=== PATIENT | male | born 1995 | race Caucasian/White ===

== ENCOUNTER 2021-01-22 22:35 | Emergency (ER) | payer SELFPAY ==
[2021-01-22 22:44] VITALS: BP 149/94; PULSE 81; RESP 16; TEMP 36.8; O2SAT 97; BMI 36.4
[2021-01-22 23:02] VITALS: BP 133/80; PULSE 86; RESP 17; O2SAT 97
--- NOTE | 2021-01-22 23:07 | ED_ITS ---
HPI - Dental/Oral General: Chief complaint: Dental/Oral Stated complaint: tooth pain Time Seen by Provider: 01/22/21 22:38 Source: patient Mode of arrival: ambulatory Limitations: no limitations History of Present Illness: HPI Narrative: 25-year-old male has a history of very poor dentition and has multiple dental caries states has been having pain to his front 2 upper teeth in his back molars. States pain is sharp nature and rates it a 6 out of 10. He denies any difficulty swallowing. Denies any fevers. He denies any abscess formation. He has had no vomiting or diarrhea. Associated symptoms: Denies fever(s) Review of Systems Const: Denies: fever(s), chills, body aches or change in appetite Eyes: Denies: blurry vision or eye discomfort ENMT: Reports: dental pain Card: Denies: chest pain Resp: Denies: dyspnea GI: Denies: abdominal pain, nausea, vomiting or diarrhea : Denies: dysuria Musc: Denies: neck pain or back pain Skin/Breast: Denies: rash Neuro: Denies: headache(s) Psych: Denies: depression Micah/Lymph: Denies: easy bruising All/Imm: Denies: urticaria Physical Exam Const: COMMON NORMALS: no acute distress, patient oriented x3 and healthy appearing HENMT: COMMON NORMALS: normocephalic and atraumatic HEAD & SCALP: normocephalic and atraumatic OTHER: Very poor dentition with multiple cavities. He has no abscess or trismus. Eye: COMMON NORMALS: Equal, round and reactive pupils present and EOMs intact bilaterally PUPIL: Yes Equal, round and reactive pupils present Neck/C-Spine: COMMON NORMALS: full ROM and supple Chest: COMMONS NORMALS: normal inspection of the chest and normal palpation of entire chest wall Resp: COMMON NORMALS: normal respiratory effort, No retractions, No use of accessory muscles and clear to auscultation bilaterally AUSCULTATION: clear to auscultation bilaterally Cardio: COMMON NORMALS: regular rate, regular rhythm and No murmurs present (Cardio) RATE: regular rate RHYTHM: regular rhythm GI: COMMON NORMALS: Normal to inspection, nondistended, normoactive bowel sounds present, Soft to palpation, non-tender and no masses PALPATION: Yes Soft to palpation Extremity: COMMON NORMALS: normal to inspection and full ROM Neuro: COMMON NORMALS: patient oriented x3, moves all extremities and no focal motor deficits Psych: COMMON NORMALS: mental status grossly normal, Normal thought process present and cooperative THOUGHT PROCESS: Normal thought process present Skin: COMMON NORMALS: no rashes or lesions noted and no wounds GENERAL SKIN EXAM: no rashes or lesions noted Course Vital Signs: Vital signs: Vital Signs Temperature 98.3 F 01/22/21 22:44 Pulse Rate 86 01/22/21 23:02 Respiratory Rate 17 01/22/21 23:02 Blood Pressure 133/80 01/22/21 23:02 Pulse Oximetry 97 01/22/21 23:02 MDM - Dental/Oral MDM Narrative: Medical decision making narrative: Patient presents with dental pain with multiple caries. He has no abscess but does have severe inflammation along his gumline as well. He has no trismus. We will place him on Naprosyn along with Keflex and he is to follow-up with a dentist. He understands agrees to plan. Discharge Plan Discharge Patient Disposition: Home Clinical Impression: Toothache, Dental caries Condition: Stable Prescriptions: New cephalexin 500 mg capsule 500 mg PO QID 7 Days Qty: 28 RF: 0 Naprosyn 500 mg tablet 500 mg PO BID PRN (Reason: pain) Qty: 20 RF: 0 Discharge Orders: Discharge ED (Routine); Ordered 01/22/21 Ordered By: Mame Alejandre Referrals: Hugh Banerjee FNP-C [Primary Care Provider] - Discharge Activity: Resume usual activity Patient Instructions: Dental Caries (ED), Toothache (ED) Coding Level of Care Code ED Building Service Worker for Galilea Mcgill
[2021-01-22] MEDS: cephALEXin 500 mg Capsule PO (23:15)
[2021-01-22] MEDS: HYDROcodone-acetaminophen 7.5-325 mg Tablet 1 TAB PO (23:15)
== END 2021-01-22 23:17 | disposition home or self-care (01) ==
PROVIDERS: Emergency Provider Emergency Medicine; PCP Nurse Practitioner
DX: K02.9 Dental caries, unspecified (principal)
CPT/HCPCS: 99283

== ENCOUNTER 2022-01-04 19:37 | Emergency (ER) | payer SELFPAY ==
[2022-01-04 19:44] VITALS: BP 139/93; PULSE 98; RESP 16; TEMP 36.6; O2SAT 98; BMI 34.4
[2022-01-04 19:58] VITALS: BP 139/93; PULSE 98; RESP 16; TEMP 36.6; O2SAT 98
--- NOTE | 2022-01-04 20:14 | W.ED.GENADLT ---
HPI - General Adult General: Chief complaint: Dental/Oral Stated complaint: Knots under chin both Side\ Pain under tongue Time Seen by Provider: 01/04/22 19:47 History of Present Illness: Patient is a 26-year-old male comes to the ED with swollen and tender nodule on right lower jaw. Patient says this morning he woke up and he had a swollen tender nodule in the right submandibular region. He massaged it and within an hour it completely resolved. He still is having a little bit of swelling there again and some tenderness. Denies any fever, chills, trouble breathing or dental pain. Denies any other symptoms. Associated symptoms: Deny chest pain, dyspnea, headache(s), nausea, rash, palpitations or vomiting Review of Systems Const: Denies: fever(s), chills or fatigue Eyes: Denies: change in vision or eye discomfort ENMT: Reports: other (Right submandibular swelling and tenderness.); Denies: throat pain, odynophagia, nasal discharge or nasal congestion Card: Denies: chest pain, palpitations, edema, swelling of feet/ankles, dyspnea on exertion or orthopnea Resp: Denies: dyspnea, productive cough or non-productive cough GI: Denies: abdominal pain, nausea, vomiting, diarrhea, constipation or hematochezia : Denies: flank pain, difficulty urinating, dysuria or hematuria Musc: Denies: neck pain, back pain or extremity swelling Skin/Breast: Denies: rash or new lesions Neuro: Denies: headache(s) PFS ED PFSH: Medical History No pertinent family history Surgical History No pertinent past surgical history Physical Exam Const: COMMON NORMALS: no acute distress, patient oriented x3 and alert GENERAL APPEARANCE: cooperative and comfortable HENMT: COMMON NORMALS: normocephalic HEAD & SCALP: normocephalic MOUTH: Normal oral and palatal mucosa present THROAT: posterior oropharynx normal and uvula midline Neck/C-Spine: COMMON NORMALS: supple GENERAL: Yes normal visual inspection OTHER: Right submandibular gland mild swelling and tenderness. Resp: COMMON NORMALS: normal respiratory effort, No retractions, No use of accessory muscles and clear to auscultation bilaterally AUSCULTATION: clear to auscultation bilaterally Cardio: COMMON NORMALS: regular rate, regular rhythm, S1 normal heart sound present, S2 normal heart sound present, No gallops present (Cardio), No clicks present (Cardio), No murmurs present (Cardio) and Peripheral pulses 2+ throughout RATE: regular rate RHYTHM: regular rhythm HEART SOUNDS: S1 normal heart sound present and S2 normal heart sound present PERIPHERAL PULSES: Peripheral pulses 2+ throughout GI: COMMON NORMALS: Normal to inspection, nondistended, normoactive bowel sounds present, Soft to palpation, non-tender and no masses PALPATION: Yes Soft to palpation : COMMON NORMALS: Yes no CVA tenderness BLADDER/KIDNEY EXAM: Yes no CVA tenderness Back/Pelvis: COMMON NORMALS: no CVA tenderness Extremity: COMMON NORMALS: normal to inspection Neuro: COMMON NORMALS: patient oriented x3 and moves all extremities SENSORIUM/ORIENTATION: Yes alert Skin: GENERAL SKIN EXAM: dry skin Course Vital Signs: Vital signs: Vital Signs Temperature 97.8 F 01/04/22 20:31 Pulse Rate 98 01/04/22 20:31 Respiratory Rate 16 01/04/22 20:31 Blood Pressure 139/93 01/04/22 20:31 Pulse Oximetry 98 01/04/22 20:31 MDM - General Adult Medical Decision Making Patient is a 26-year-old male comes to the ED with right submandibular pain and swelling today. He states when he woke up he had large swelling on right submandibular side. He massaged the area and swelling went down significantly. He still has a little bit of swelling and tenderness present. Denies any other symptoms. Vitals are stable. Exam of patient shows a nontoxic-appearing male in no acute distress or pain. He does have mild swelling and tenderness of the right submandibular gland. This is likely due to an obstruction in the duct. He was told to continue massaging the gland and to chew on candies or gum to promote saliva excretion to help reduce gland swelling. Patient was stable for discharge home and was told to follow-up with his PCP in the next 7 to 10 days for evaluation. Return to ED precautions given. Patient understood agree with plan. Discharge Plan Discharge Patient Disposition: Home Clinical Impression: Submandibular gland swelling Condition: Stable Prescriptions: No Action Naprosyn 500 mg tablet 500 mg PO BID PRN (Reason: pain) Qty: 20 0RF Discharge Orders: Discharge ED (Routine); Ordered 01/04/22 Ordered By: Pavel Childress Discharge Diet: Regular Discharge Activity: Resume usual activity Activity Restrictions/Additional Instructions: Follow-up with medical provider as directed in the next 5 to 7 days for reevaluation. Right submandibular gland swelling likely due to an obstruction in one of the ducts. Lightly massage gland and promote saliva excretion by eating candies (sour) and/or chewing gum. Return to the ER or your medical provider if condition worsens. Please read and understand discharge instructions. Thank you for choosing [facility] for your healthcare needs today. Please realize this is an emergency room and that we are providing you with a medical screening exam and this may not be complete and all inclusive of all the testing and or work up that you may need to determine your ailment or severity of your illness. It is very important that you follow up as instructed or that you return to the Emergency Department should you have concerns or if your condition changes or worsens in any way Coding Level of Care Code ED Tool Lathe Operator for Galilea Mcgill Exam Comprehensive
[2022-01-04 20:31] VITALS: BP 139/93; PULSE 98; RESP 16; TEMP 36.6; O2SAT 98
== END 2022-01-04 20:32 | disposition home or self-care (01) ==
PROVIDERS: Emergency Provider Physician Assistant
DX: R59.9 Enlarged lymph nodes, unspecified (principal)
CPT/HCPCS: 99282

== ENCOUNTER 2022-04-19 09:20 | Emergency (ER) | payer MEDICAID, SELFPAY ==
[2022-04-19 09:29] VITALS: BP 156/91; PULSE 79; RESP 19; TEMP 36.8; O2SAT 96; BMI 34.4
[2022-04-19 09:34] VITALS: BP 121/81; PULSE 80; RESP 23; O2SAT 93
--- NOTE | 2022-04-19 09:34 | XR_ITS ---
WS: [id number] XR chest 1V portable [id number] REASON FOR EXAM: chest pain FINDINGS: The chest is unchanged compared to 08/10/2015. The heart and mediastinum are within normal limits. Calcified granulomatous disease in both hemithoraces. No acute pulmonary parenchymal or pleural abnormality is identified. Bony thorax is intact. XR/XR chest 1V portable [id number] IMPRESSION: No acute chest abnormality.
--- NOTE | 2022-04-19 09:34 | ECG_ITS ---
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 Measurements Intervals [place] Rate: 71 P: 29 SD: 187 QRS: -28 QRSD: 89 T: 30 QT: 343 QTc: 373 Interpretive Statements SINUS RHYTHM WITH SINUS ARRHYTHMIA BORDERLINE LEFT AXIS DEVIATION [QRS AXIS < -20] EARLY REPOLARIZATION [ST ELEVATION WITH NORMALLY INFLECTED T-WAVE] Compared to ECG 04/19/2022 09:23:52 No significant changes Electronically Signed On 04-19-2022 20:06:30 CDT by Liat Gonzales M.D. [id number]
--- NOTE | 2022-04-19 09:37 | ED_ITS ---
HPI - Chest Pain General: Chief Complaint: Chest Pain Stated Complaint: stemi Time Seen by Provider: 04/19/22 09:27 Source: patient Mode of arrival: EMS Limitations: no limitations History of Present Illness: 26-year-old male presents to the ER by EMS with complaints of chest discomfort. Patient states he has had multiple episodes of chest pain over the last couple of months. Symptoms are now associated with activity often comes on while at rest resolved spontaneously after 20 or 30 minutes this time it did not resolve and was more intense than it had been in the past. Patient was given fentanyl nitro and aspirin in route. He still is having some chest discomfort radiates into his back. Patient is not diabetic he does smoke he denies any drug use no previous history of known coronary disease. He is not treated for hypertension is not taking any prescription medications or stimulants. He has not previously had a evaluation for coronary artery disease, he does state his father had a OR in his mid 20s. MD complaint: chest pain Onset (ago): hour(s) Timing of current episode: episodic Prior episodes: Yes Onset: during rest Pain location: substernal and left chest Pain radiation: left arm and back Severity: moderate Quality: sharp Relieving factors: nothing Exacerbating factors: nothing Associated symptoms: Reports dyspnea, nausea and sense of impending doom; Deny abdominal pain, diaphoresis, fever(s), leg edema, palpitations, syncope or vomiting Treatment prior to arrival: aspirin, nitroglycerin, oxygen and other (Fentanyl) Review of Systems Const: Denies: fever(s), chills, fatigue or diaphoresis ENMT: Denies: throat pain, ear or mastoid pain, nasal discharge or nasal congestion Card: Denies: palpitations or syncope Resp: Reports: dyspnea; Denies: productive cough, non-productive cough or wheezing GI: Reports: nausea; Denies: abdominal pain or vomiting : Denies: flank pain, difficulty urinating, dysuria, urinary frequency or urinary urgency Skin/Breast: Denies: rash or pruritus PFSH ED PFSH: Medical History No pertinent family history Surgical History No pertinent past surgical history Physical Exam Const: COMMON NORMALS: no acute distress GENERAL APPEARANCE: cooperative and comfortable ORIENTATION/CONSCIOUSNESS: Yes awake, Yes oriented to person, Yes oriented to place and Yes oriented to time HENMT: COMMON NORMALS: normocephalic, atraumatic and hearing grossly normal bilaterally HEAD & SCALP: normocephalic and atraumatic Neck/C-Spine: COMMON NORMALS: no JVD Resp: COMMON NORMALS: normal respiratory effort, No retractions, No use of accessory muscles and clear to auscultation bilaterally AUSCULTATION: clear to auscultation bilaterally Cardio: COMMON NORMALS: no JVD, regular rate, regular rhythm and No murmurs present (Cardio) RATE: regular rate RHYTHM: regular rhythm GI: COMMON NORMALS: Soft to palpation and No hepatosplenomegaly present AUSCULTATION: Yes normoactive bowel sounds PALPATION: Yes Soft to palpation, No Tenderness to palpation present (GI), No Guarding due to palpation present (GI) and Yes No hepatosplenomegaly present Extremity: COMMON NORMALS: normal to inspection, capillary refill normal, no clubbing, cyanosis or edema, no calf tenderness and no pedal edema Neuro: SENSORIUM/ORIENTATION: Yes oriented to person, Yes oriented to place and Yes oriented to time Skin: COMMON NORMALS: no rashes or lesions noted GENERAL SKIN EXAM: no rashes or lesions noted Course Vital Signs: Vital signs: Vital Signs Temperature 98.2 F 04/19/22 09:29 Pulse Rate 81 04/19/22 11:50 Respiratory Rate 16 04/19/22 11:50 Blood Pressure 111/61 04/19/22 11:50 Pulse Oximetry 98 04/19/22 11:50 MDM - Chest Pain Medical Decision Making Heart score of 2. Chest pain was reproducible and EMS by palpation on the chest. EKG shows early repull which is present previously. Troponins are negative. Will discharge patient home with aspirin and graded exercise stress test return if has further problems. Medical Records I reviewed the patient's medical records. Lab Data I reviewed the patient's lab results. : 04/19/22 09:30 04/19/22 09:30 Radiology Impressions Chest X-Ray 04/19/22 09:34 IMPRESSION: No acute chest abnormality. Laboratory Results WBC 14.8 10^3/uL (4.0-10.0) H 04/19/22 09:30 RBC 5.72 10^6/uL (4.1-5.3) H 04/19/22 09:30 Hgb 16.5 g/dL (11.7-16.6) 04/19/22 09:30 Hct 54.4 % (42.0-52.0) H 04/19/22 09:30 MCV 95.1 fl (80-94) H 04/19/22 09:30 MCH 28.8 pg (28.0-34.0) 04/19/22 09:30 MCHC 30.3 g/dL (30.0-36.0) 04/19/22 09:30 RDW 14.4 % (12.1-15.1) 04/19/22 09:30 Plt Count 339 10^3/cmm (130-400) 04/19/22 09:30 MPV 9.5 fL (7.4-10.4) 04/19/22 09:30 Neut % (Auto) 62.2 % 04/19/22 09:30 Lymph % (Auto) 29.2 % 04/19/22 09:30 [place] % (Auto) 5.1 % 04/19/22 09:30 Eos % (Auto) 2.1 % 04/19/22 09:30 Baso % (Auto) 0.9 % 04/19/22 09:30 Neut # (Auto) 9.19 10^3/uL (1.8-7.7) H 04/19/22 09:30 Lymph # (Auto) 4.3 10^3/uL (0.8-4.8) 04/19/22 09:30 [place] # (Auto) 0.8 10^3/uL (0.2-0.9) 04/19/22 09:30 Eos # (Auto) 0.3 10^3/uL (0.0-0.8) 04/19/22 09:30 Baso # (Auto) 0.1 10^3/uL (0.0-0.1) 04/19/22 09:30 Nucleated RBC % (auto) 0 % 04/19/22:30 Nucleated RBCs # 0.0 /100WBC 04/19/22:30 PT 11.90 SECONDS (12.1-14.9) L 04/19/22 09:30 INR 0.85 (0.8-1.2) 04/19/22 09:30 APTT 28.3 SECONDS (23.9-36.7) 04/19/22 09:30 Sodium 136 mmol/L (136-145) 04/19/22 09:30 Potassium 3.7 mmol/L (3.5-5.1) 04/19/22 09:30 Chloride 103 mmol/L (98-107) 04/19/22 09:30 Carbon Dioxide 21 mmol/L (22-29) L 04/19/22 09:30 Anion Gap 15.7 (5-19) 04/19/22 09:30 BUN 13 mg/dL (6-20) 04/19/22 09:30 Creatinine 0.9 mg/dL (0.7-1.2) 04/19/22 09:30 GFR Calculation 102.0 mL/min (90-130) 04/19/22 09:30 Glucose 139 mg/dL (65-115) H 04/19/22 09:30 Calculated Osmolality 284 mOsm/kg (285-295) L 04/19/22 09:30 Calcium 9.2 mg/dL (8.5-10.5) 04/19/22 09:30 Total Bilirubin 0.5 mg/dL (0.15-1.2) 04/19/22 09:30 AST 15 U/L (0-40) 04/19/22 09:30 ALT 20 U/L (0-41) 04/19/22 09:30 Alkaline Phosphatase 69 IU/L (40-130) 04/19/22 09:30 Creatine Kinase 101 U/L (39-308) 04/19/22 09:30 Troponin T Baseline 6 ng/L (0-15) 04/19/22 09:30 Troponin T 120 Minute 6.00 ng/L (0-15) 04/19/22 10:52 Delta Troponin T 0 ABS# (0-10) 04/19/22 10:52 Total Protein 7.2 g/dL (6.6-8.7) 04/19/22 09:30 Albumin 4.3 g/dL (3.5-5.2) 04/19/22 09:30 Globulin 2.9 g/dL (1.3-4.6) 04/19/22 09:30 Discharge Plan Discharge Patient Disposition: Home Clinical Impression: Atypical chest pain Condition: Stable Prescriptions: New aspirin 81 mg tablet,delayed release (DR/EC) 81 mg PO DAILY Qty: 30 0RF No Action Naprosyn 500 mg tablet 500 mg PO BID PRN (Reason: pain) Qty: 20 0RF Discharge Orders: Discharge ED (Routine); Ordered 04/19/22 Ordered By: Manpreet Gerber Discharge Diet: Usual diet Discharge Activity: Limit activity as instructed Patient Instructions: Opioid Safety Activity Restrictions/Additional Instructions: Avoid exertional activity. Case management make her in short follow-up with graded exercise stress test. Coding Level of Care Code ED Communications Technician for Galilea Fwd Exam Comprehensive
--- NOTE | 2022-04-19 09:37 | PC.NURSE ---
Pt arrives via EMS d/t chest pain that started at 0400 this morning waking pt from sleep and constant since all over in pt's chest. Pt c/o pain 06/01 EMS administered 324 aspirin, 3 nitro, and 100 fentanyl in route. Pt denies drug use. Pt is current smoker.
[2022-04-19] MEDS: nitroglycerin 1 gm/inch oint Pkt 1 INCH TOPICAL (09:40)
[2022-04-19 09:43] LABS: Basophils # 0.1 10^3/uL (0.0-0.1); Basophils % 0.9 %; Eosinophils # 0.3 10^3/uL (0.0-0.8); Eosinophils % 2.1 %; Hematocrit 54.4 % (42.0-52.0); Hemoglobin 16.5 g/dL (11.7-16.6); Lymphocytes # 4.3 10^3/uL (0.8-4.8); Lymphocytes % 29.2 %; Mean Corpuscular HGB Conc 30.3 g/dL (30.0-36.0); Mean Corpuscular Hemoglobin 28.8 pg (28.0-34.0); Mean Corpuscular Volume 95.1 fl (80-94); Mean Platelet Volume 9.5 fL (7.4-10.4); Monocytes # 0.8 10^3/uL (0.2-0.9); Monocytes % 5.1 %; Neutrophils # 9.19 10^3/uL (1.8-7.7); Neutrophils % 62.2 %; Nucleated Red Blood Cells % 0 %; Platelet Count 339 10^3/cmm (130-400); Red Blood Count 5.72 10^6/uL (4.1-5.3); Red Cell Distribution Width 14.4 % (12.1-15.1); White Blood Count 14.8 10^3/uL (4.0-10.0)
[2022-04-19 09:53] LABS: INR 0.85 (0.8-1.2); Partial Thromboplastin Time 28.3 SECONDS (23.9-36.7)
[2022-04-19 09:58] LABS: Troponin(5th) Baseline 6 ng/L (0-15)
[2022-04-19 10:03] LABS: Alanine Aminotransferase 20 U/L (0-41); Albumin Level 4.3 g/dL (3.5-5.2); Alkaline Phosphatase 69 IU/L (40-130); Aspartate Amino Transferase 15 U/L (0-40); Blood Urea Nitrogen 13 mg/dL (6-20); Calcium 9.2 mg/dL (8.5-10.5); Carbon Dioxide 21 mmol/L (22-29); Chloride 103 mmol/L (98-107); Creatine Phosphokinase 101 U/L (39-308); Globulin 2.9 g/dL (1.3-4.6); Glucose 139 mg/dL (65-115); Osmolality Calculated 284 mOsm/kg (285-295); Sodium 136 mmol/L (136-145); Total Bilirubin 0.5 mg/dL (0.15-1.2); Total Protein 7.2 g/dL (6.6-8.7)
[2022-04-19 10:08] LABS: Anion Gap 15.7 (5-19); Potassium 3.7 mmol/L (3.5-5.1)
[2022-04-19 11:27] VITALS: BP 121/82; PULSE 74; RESP 16; O2SAT 99
[2022-04-19 11:33] LABS: Troponin 5 2HR Delta 0 ABS# (0-10)
--- NOTE | 2022-04-19 11:34 | ECG_ITS ---
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 Measurements Intervals [place] Rate: 80 P: 28 [place]: 172 QRS: -23 QRSD: 97 T: 31 QT: 345 QTc: 398 Interpretive Statements SINUS RHYTHM WITH MARKED SINUS ARRHYTHMIA BORDERLINE LEFT AXIS DEVIATION [QRS AXIS < -20] EARLY REPOLARIZATION [ST ELEVATION WITH NORMALLY INFLECTED T-WAVE] Compared to ECG 01/23/2015 06:59:38 ST (T wave) deviation no longer present Electronically Signed On 04-19-2022 20:10:56 CDT by Liat Gonzales M.D. [email or web address]
[2022-04-19 11:50] VITALS: BP 111/61; PULSE 81; RESP 16; O2SAT 98
--- NOTE | 2022-04-27 12:43 | DCPLANNER ---
Addendum entered by Huma Mccracken 10/27/22 13:12: physical therapist center manager received notification that patients insurance denied the stress test for patient. Addendum entered by Huma Mccracken 04/27/22 13:03: Patient returned case therapist phone call, stated that he did want the stress test ordered and to have the results sent to Amrik Banerjee his primary care physician. physical therapist center manager faxed signed order to centralized scheduling, who will call patient with appointment information. Original Note: physical therapist center manager had message to schedule an outpatient stress test for patient. physical therapist center manager called patient at [phone] to confirm if patient wanted the stress test ordered and to confirm who patient sees for primary care. physical therapist center manager unable to speak with patient at this time and unable to leave a voicemail due to not voicemail box set up.
== END 2022-04-19 11:51 | disposition home or self-care (01) ==
PROVIDERS: Emergency Provider Family Medicine
DX: R07.89 Other chest pain (principal)
CPT/HCPCS: 36415; 71045; 80053; 82550; 84484; 85025; 85610; 85730; 93005; 99285

== ENCOUNTER 2022-06-03 18:18 | Emergency (ER) | payer MEDICAID, SELFPAY ==
[2022-06-03 18:27] VITALS: BP 131/64; PULSE 103; RESP 18; TEMP 37.2; O2SAT 96; BMI 33.5
--- NOTE | 2022-06-03 18:49 | ED_ITS ---
HPI - Dental/Oral General: Chief complaint: Dental/Oral Stated complaint: tooth bleeing post extraction Time Seen by Provider: 06/03/22 18:39 History of Present Illness: 26-year-old male patient comes in today with bleeding secondary to dental extraction. Patient does routinely take baby aspirin and had only held the medication today for his extractions. Patient had the extraction done at 2:00 this afternoon. Patient was released to home was unable to get medications filled for pain. Patient reports 1 episode of emesis with blood in it. Patient appears nontoxic. Patient does have some mild active bleeding to the gums and post extraction points. Review of Systems ENMT: Reports: bleeding gums [facility] ED PFSH: Medical History No pertinent family history Surgical History No pertinent past surgical history Physical Exam Const: COMMON NORMALS: alert HENMT: TEETH & GINGIVA: Yes poor dentition and Yes other (Clots appear to be forming in the extraction of the left side of the mouth.) Neck/C-Spine: COMMON NORMALS: full ROM Resp: COMMON NORMALS: normal respiratory effort Cardio: COMMON NORMALS: regular rate RATE: regular rate Extremity: COMMON NORMALS: normal to inspection Neuro: SENSORIUM/ORIENTATION: Yes alert Skin: COMMON NORMALS: no rashes or lesions noted GENERAL SKIN EXAM: no rashes or lesions noted Procedures Laceration Laceration 1: Site: other (Mouth, dental extraction socket central lower left incisor) Side (If applicable): left Size (cm): 1 Local Anesthetic: lidocaine 2% Amount of anesthesia used (mL): 1 Skin layer closed with: vicryl Size (cm): 4-0 Number of sutures: 1 Technique: other (Figure 8 suture) Course ED course: 2044, the patient had continued bleeding from the central lower incisor socket. Most of the other sockets had clots in them where this 1 had active bleeding. A [id number] stitch was introduced with good control of bleeding. 2104, no further bleeding was noted after suture. Patient reported control of pain and discomfort. Recommend follow-up with dentist for further treatment. Patient reported understanding. Vital Signs: Vital signs: Vital Signs Temperature 98.9 F 06/03/22 18:27 Pulse Rate 103 H 06/03/22 20:53 Respiratory Rate 18 06/03/22 20:53 Blood Pressure 127/88 06/03/22 20:53 Pulse Oximetry 95 06/03/22 20:53 Oxygen Delivery Me thod 06/03/22 18:27 MDM - Dental/Oral Medical Decision Making 26-year-old male patient comes in for concerns of bleeding after dental extractions at 2:00 this afternoon. On exam patient is alert oriented. Patient responds appropriate to questions. Patient does have noticeable bleeding from the gumline of the extraction points. It is noted patient also has clots noted in each of the extraction point of the left side of his upper and lower jaw. V ital signs are normal. Differential diagnosis includes but not limited to postsurgical bleeding, vessel injury, adverse drug effect, reactionary bleeding. Patient was monitored and was treated at first with pressure dressings with some improvement in bleeding but no complete control. TXA was then used and it was noted that most of the bleeding was coming from the central incisor socket. A ifefve-vs-plaxo suture was placed and further bleeding was controlled. Patient was agreeable for care and need for follow-up with dentist or return to the ER for worsening symptoms or new concerns. Patient was also given 1 g of Rocephin IV due to elevated white count although this is probably more secondary to surgical procedure today. Lab Data : 06/03/22 19:10 Laboratory Results WBC 20.1 10^3/uL (4.0-10.0) H 06/03/22 19:10 RBC 5.86 10^6/uL (4.1-5.3) H 06/03/22 19:10 Hgb 16.8 g/dL (11.7-16.6) H 06/03/22 19:10 Hct 51.2 % (42.0-52.0) 06/03/22 19:10 MCV 87.4 fl (80-94) 06/03/22 19:10 MCH 28.7 pg (28.0-34.0) 06/03/22 19:10 MCHC 32.8 g/dL (30.0-36.0) 06/03/22 19:10 RDW 13.9 % (12.1-15.1) 06/03/22 19:10 Plt Count 351 10^3/cmm (130-400) 06/03/22 19:10 MPV 9.8 fL (7.4-10.4) 06/03/22 19:10 Neut % (Auto) 78.9 % 06/03/22 19:10 Lymph % (Auto) 13.8 % 06/03/22 19:10 Lajas % (Auto) 5.0 % 06/03/22 19:10 Eos % (Auto) 1.3 % 06/03/22 19:10 Baso % (Auto) 0.5 % 06/03/22 19:10 Neut # (Auto) 15.84 10^3/uL (1.8-7.7) H 06/03/22 19:10 Lymph # (Auto) 2.8 10^3/uL (0.8-4.8) 06/03/22 19:10 Lajas # (Auto) 1.0 10^3/uL (0.2-0.9) H 06/03/22 19:10 Eos # (Auto) 0.3 10^3/uL (0.0-0.8) 06/03/22 19:10 Baso # (Auto) 0.1 10^3/uL (0.0-0.1) 06/03/22 19:10 Nucleated RBC % (auto) 0 % 06/03/22 19:10 Nucleated RBCs # 0.0 /100WBC 06/03/22 19:10 Discharge Plan Discharge Patient Disposition: Home Clinical Impression: Surgical wound hemorrhage after dental procedure Condition: Stable Prescriptions: No Action aspirin 81 mg tablet,delayed release (DR/EC) 81 mg PO DAILY Qty: 30 0RF Discharge Orders: Discharge ED (Routine); Ordered 06/03/22 Ordered By: Karel Farooq Discharge Diet: Usual diet Discharge Activity: Increase activity as tolerated Patient Instructions: Toothache (ED) Activity Restrictions/Additional Instructions: Continue with routine care. Drink plenty of water. Follow instructions from dentist. Return to ER for new concerns or worsening symptoms. Coding Level of Care Code ED Furnace Mason for Rozg Fwd Exam Detailed
[2022-06-03 19:13] LABS: Basophils # 0.1 10^3/uL (0.0-0.1); Basophils % 0.5 %; Eosinophils # 0.3 10^3/uL (0.0-0.8); Eosinophils % 1.3 %; Hematocrit 51.2 % (42.0-52.0); Hemoglobin 16.8 g/dL (11.7-16.6); Lymphocytes # 2.8 10^3/uL (0.8-4.8); Lymphocytes % 13.8 %; Mean Corpuscular HGB Conc 32.8 g/dL (30.0-36.0); Mean Corpuscular Hemoglobin 28.7 pg (28.0-34.0); Mean Corpuscular Volume 87.4 fl (80-94); Mean Platelet Volume 9.8 fL (7.4-10.4); Neutrophils # 15.84 10^3/uL (1.8-7.7); Neutrophils % 78.9 %; Nucleated Red Blood Cells % 0 %; Platelet Count 351 10^3/cmm (130-400); Red Blood Count 5.86 10^6/uL (4.1-5.3); Red Cell Distribution Width 13.9 % (12.1-15.1); White Blood Count 20.1 10^3/uL (4.0-10.0)
[2022-06-03] MEDS: morphine 4 mg/mL SDV 1 mL IVP (19:21)
[2022-06-03] MEDS: ondansetron 2 mg/ML SDV 2 mL 4 MG IVP (19:22)
[2022-06-03] MEDS: sodium chloride 0.9% 1,000 ML 999 ML IV (19:22)
[2022-06-03] MEDS: cefTRIAXone 1,000 MG in sodium chloride 0.9% (plus) 50 ML 100 MG IV (20:05)
[2022-06-03] MEDS: ketorolac 30 mg/mL INJ 15 MG IVP (20:10)
[2022-06-03] MEDS: tranexamic acid 1,000 mg/10mL SDV 1000 MG XX (20:28)
[2022-06-03 20:53] VITALS: BP 127/88; PULSE 103; RESP 18; O2SAT 95
[2022-06-03] MEDS: ketorolac 10 mg Tablet PO (21:35)
[2022-06-03] MEDS: HYDROcodone-acetaminophen 5-325 mg Tablet 1 TAB PO (21:35)
[2022-06-03 21:51] VITALS: BP 130/74; PULSE 78; RESP 16; O2SAT 99
== END 2022-06-03 21:35 | disposition home or self-care (01) ==
PROVIDERS: Emergency Provider Nurse Practitioner Family
DX: K91.840 Postprocedural hemorrhage of a digestive system organ or structure following a digestive system procedure (principal); Z79.82 Long term (current) use of aspirin
CPT/HCPCS: 41250; 85025; 96365; 96375; 99284; J0696; J1885; J2270; J2405; J7030

== ENCOUNTER 2022-08-13 02:03 | Emergency (ER) | payer MEDICAID, SELFPAY ==
[2022-08-13 02:26] VITALS: BP 122/82; PULSE 82; RESP 18; TEMP 36.7; O2SAT 95; BMI 34.8
--- NOTE | 2022-08-13 02:57 | ED_ITS ---
HPI - Dental/Oral General: Chief complaint: Dental/Oral Stated complaint: Gum Infections Time Seen by Provider: 08/13/22 02:35 History of Present Illness: Patient is a 26-year-old male comes to the ED with dental complaint. Patient had 12 of his teeth pulled out on his right upper and lower jaw back on July 26. He is scheduled to follow-up with dentist to have more teeth removed on August 31. Over the past 3 days he started developing some pain in his right lower jaw with some gum swelling. Endorses having little bit of nausea but denies any emesis. Denies any fevers. Associated symptoms: Denies fever(s) or odynophagia Review of Systems Const: Denies: fever(s), chills or fatigue Eyes: Denies: change in vision or eye discomfort ENMT: Reports: dental pain (Right lower gum pain and swelling); Denies: throat pain, odynophagia, nasal discharge or nasal congestion Card: Denies: chest pain, palpitations, edema, swelling of feet/ankles, dyspnea on exertion or orthopnea Resp: Denies: dyspnea, productive cough or non-productive cough GI: Denies: abdominal pain, nausea, vomiting, diarrhea, constipation or hematochezia : Denies: flank pain, difficulty urinating, dysuria or hematuria Musc: Denies: neck pain, back pain or extremity swelling Skin/Breast: Denies: rash or new lesions Neuro: Denies: headache(s), numbness in extremities or weakness in extremities PFS ED PFSH: Medical History No pertinent family history Surgical History No pertinent past surgical history Physical Exam Const: COMMON NORMALS: no acute distress, patient oriented x3 and alert GENERAL APPEARANCE: cooperative and comfortable HENMT: COMMON NORMALS: normocephalic HEAD & SCALP: normocephalic MOUTH: Normal oral and palatal mucosa present TEETH & GINGIVA: Yes gingiva abnormal edematous, diffusely erythematous and tender and Yes poor dentition THROAT: posterior oropharynx normal and uvula midline Neck/C-Spine: COMMON NORMALS: supple GENERAL: Yes normal visual inspection Resp: COMMON NORMALS: normal respiratory effort, No retractions, No use of accessory muscles and clear to auscultation bilaterally AUSCULTATION: clear to auscultation bilaterally Cardio: COMMON NORMALS: regular rate, regular rhythm, S1 normal heart sound present, S2 normal heart sound present, No gallops present (Cardio), No clicks present (Cardio), No murmurs present (Cardio) and Peripheral pulses 2+ throughout RATE: regular rate RHYTHM: regular rhythm HEART SOUNDS: S1 normal heart sound present and S2 normal heart sound present PERIPHERAL PULSES: Peripheral pulses 2+ throughout GI: COMMON NORMALS: Normal to inspection, nondistended, normoactive bowel sounds present, Soft to palpation, non-tender and no masses PALPATION: Yes Soft to palpation : COMMON NORMALS: Yes no CVA tenderness BLADDER/KIDNEY EXAM: Yes no CVA tenderness Back/Pelvis: COMMON NORMALS: no CVA tenderness Extremity: COMMON NORMALS: normal to inspection Neuro: COMMON NORMALS: patient oriented x3 SENSORIUM/ORIENTATION: Yes alert GAIT: Yes Normal gait present Skin: GENERAL SKIN EXAM: dry skin Course Vital Signs: Vital signs: Vital Signs Temperature 98.0 F 08/13/22 02:26 Pulse Rate 82 08/13/22 02:26 Respiratory Rate 18 08/13/22 02:26 Blood Pressure 122/82 08/13/22 02:26 Pulse Oximetry 95 08/13/22 02:26 Oxygen Delivery Me thod 08/13/22 02:26 MDM - Dental/Oral Medical Decision Making Patient is a 26-year-old male comes to the ED with right lower gum swelling and pain. He has had over 12 teeth removed back on July 26. Upon exam patient has gingivitis. Vitals are stable and patient appears nontoxic and in no acute distress. He has an appointment with his dentist on August 31. He was given a dose of clindamycin and Zofran here in the ED. He was diagnosed to gingivitis and discharged home with a prescription for clindamycin, ibuprofen and Zofran. Return to ED precautions given. Discharge Plan Discharge Patient Disposition: Home Clinical Impression: Gingivitis Condition: Stable Prescriptions: New clindamycin HCl 150 mg capsule 300 mg PO QID 7 Days Qty: 56 0RF ondansetron 4 mg tablet,disintegrating 4 mg PO Q8H PRN (Reason: nausea and vomiting) Qty: 10 0RF ibuprofen 600 mg tablet 600 mg PO Q8H PRN (Reason: pain) Qty: 30 0RF No Action aspirin 81 mg tablet,delayed release (DR/EC) 81 mg PO DAILY Qty: 30 0RF Discharge Orders: Discharge ED (Routine); Ordered 08/13/22 Ordered By: Pavel Childress Discharge Diet: Regular Discharge Activity: Resume usual activity Patient Instructions: Gingivitis Activity Restrictions/Additional Instructions: Follow-up with dentist at your next scheduled appointment. Take medications as prescribed. Return to the ER or your medical provider if condition worsens. Please read and understand discharge instructions. Thank you for choosing [facility] for your healthcare needs today. Please realize this is an emergency room and that we are providing you with a medical screening exam and this may not be complete and all inclusive of all the testing and or work up that you may need to determine your ailment or severity of your illness. It is very important that you follow up as instructed or that you return to the Emergency Department should you have concerns or if your condition changes or worsens in any way. Coding Level of Care Code ED Conference Services Manager for Galilea Mcgill Exam Comprehensive
[2022-08-13] MEDS: clindamycin 150 mg Capsule 300 MG PO (03:12)
[2022-08-13] MEDS: ondansetron 4 MG Tablet PO (03:13)
[2022-08-13 03:42] VITALS: PULSE 80; RESP 17; O2SAT 97
== END 2022-08-13 03:15 | disposition home or self-care (01) ==
PROVIDERS: Emergency Provider Physician Assistant
DX: K05.10 Chronic gingivitis, plaque induced (principal)
CPT/HCPCS: 99283; Q0162

== ENCOUNTER 2022-08-17 06:01 | Emergency (ER) | payer MEDICAID, SELFPAY ==
[2022-08-17 06:02] VITALS: BP 121/72; PULSE 88; RESP 18; TEMP 36.6; O2SAT 95; BMI 34.2
--- NOTE | 2022-08-17 06:09 | ECG_ITS ---
[facility] Test Date: 2022-08-17 Pat Name: Adrián Bangura Department: Room: Gender: Male Vascular Technologist Sonographer: : 1995 Requested By: Manpreet Galaviz Order Number: [id number] Miguel MD: Benedict Atkins M.D. Measurements Intervals Minetto Rate: 75 P: 34 WV: 171 QRS: -4 QRSD: 87 T: 60 QT: 355 QTc: 397 Interpretive Statements SINUS RHYTHM WITH SINUS ARRHYTHMIA EARLY REPOLARIZATION [ST ELEVATION WITH NORMALLY INFLECTED T-WAVE] Compared to ECG 04/19/2022 11:31:45 No significant changes Electronically Signed On 08-18-2022 7:05:09 CDT by Benedict Atkins M.D. [email or web address]-[id number] [email or web address]
--- NOTE | 2022-08-17 06:16 | ED_ITS ---
HPI - Chest Pain General: Chief Complaint: Chest Pain Stated Complaint: Chest Pain/ Epigastric Pain Time Seen by Provider: 08/17/22 06:06 Source: patient Mode of arrival: ambulatory History of Present Illness: 26-year-old male presents emergency room complaining of epigastric pain. Pain in the upper abdomen started at 3 PM yeste rday but is waxing and waning a bit and then last evening and came back and progressively gotten worse. Patient was given 224 mg of aspirin and several sublingual nitro in route did not really effective pain. He has some dental issues and was on antibiotics last week for tooth infection. Noticed that eating seems to worsen it or drinking anything. He denies any use of any alcohol. He has no dysuria urgency or frequency no flank pain. Has not had any hemoptysis or hematemesis denies fever sweats chills cough or shortness of breath no productive cough. No history of coronary disease no family history of early coronary artery disease. MD complaint: chest pain Onset (ago): hour(s) Timing of current episode: episodic Onset: during rest Pain location: epigastric Pain radiation: none Severity: moderate Quality: sharp Relieving factors: nothing Exacerbating factors: eating Associated symptoms: Reports abdominal pain; Deny diaphoresis, dyspnea, fever(s), leg edema, nausea, palpitations, sense of impending doom, syncope or vomiting Treatment prior to arrival: aspirin and nitroglycerin Review of Systems Const: Denies: fever(s), chills, fatigue, malaise or diaphoresis ENMT: Denies: throat pain, ear or mastoid pain, nasal discharge or nasal congestion Card: Reports: chest pain; Denies: palpitations or syncope Resp: Denies: dyspnea GI: Reports: abdominal pain; Denies: nausea, vomiting, hematemesis or hematochezia : Denies: flank pain, difficulty urinating, dysuria, urinary frequency or urinary urgency Musc: Denies: neck pain or back pain Skin/Breast: Denies: rash or pruritus [facility] ED PFSH: Medical History No pertinent family history Surgical History No pertinent past surgical history Social History (Updated 08/17/22 @ 06:24 by Manpreet Gerber DO) Smoking and tobacco status: current every day smoker Alcohol intake: never Physical Exam 2 Const: COMMON NORMALS: no acute distress GENERAL APPEARANCE: cooperative and comfortable ORIENTATION/CONSCIOUSNESS: Yes awake, Yes oriented to person, Yes oriented to place and Yes oriented to time HENMT: COMMON NORMALS: normocephalic, atraumatic and hearing grossly normal bilaterally HEAD & SCALP: normocephalic and atraumatic Resp: COMMON NORMALS: normal respiratory effort, No retractions, No use of accessory muscles and clear to auscultation bilaterally AUSCULTATION: clear to auscultation bilaterally Cardio: COMMON NORMALS: regular rate, regular rhythm and No murmurs present (Cardio) RATE: regular rate RHYTHM: regular rhythm GI: COMMON NORMALS: Soft to palpation and No hepatosplenomegaly present AUSCULTATION: Yes normoactive bowel sounds PALPATION: Yes Soft to palpation, No Tenderness to palpation present (GI), No Guarding due to palpation present (GI) and Yes No hepatosplenomegaly present Extremity: COMMON NORMALS: normal to inspection, capillary refill normal, no clubbing, cyanosis or edema, no calf tenderness and no pedal edema Neuro: SENSORIUM/ORIENTATION: Yes oriented to person, Yes oriented to place and Yes oriented to time Skin: COMMON NORMALS: no rashes or lesions noted GENERAL SKIN EXAM: no rashes or lesions noted Course Vital Signs: Vital signs: Vital Signs Temperature 97.8 F 08/17/22 06:02 Pulse Rate 68 08/17/22 10:00 Respiratory Rate 16 08/17/22 06:31 Blood Pressure 118/77 08/17/22 10:00 Pulse Oximetry 96 08/17/22 10:00 Oxygen Delivery Me thod 08/17/22 10:00 MDM - Chest Pain Medical Decision Making Labs imaging and EKG reviewed. No acute EKG changes other labs normal. Patient improved will start with proton pump inhibitor follow-up with primary care Medical Records I reviewed the patient's medical records. Lab Data I reviewed the patient's lab results. : 08/17/22 06:15 08/17/22 06:15 Laboratory Results WBC 14.0 10^3/uL (4.0-10.0) H 08/17/22 06:15 RBC 5.03 10^6/uL (4.1-5.3) 08/17/22 06:15 Hgb 14.9 g/dL (11.7-16.6) 08/17/22 06:15 Hct 44.2 % (42.0-52.0) 08/17/22 06:15 MCV 87.9 fl (80-94) 08/17/22 06:15 MCH 29.6 pg (28.0-34.0) 08/17/22 06:15 MCHC 33.7 g/dL (30.0-36.0) 08/17/22 06:15 RDW 13.9 % (12.1-15.1) 08/17/22 06:15 Plt Count 352 10^3/cmm (130-400) 08/17/22 06:15 MPV 9.5 fL (7.4-10.4) 08/17/22 06:15 Neut % (Auto) 56.8 % 08/17/22 06:15 Lymph % (Auto) 24.5 % 08/17/22 06:15 [place] % (Auto) 4.7 % 08/17/22 06:15 Eos % (Auto) 12.4 % 08/17/22 06:15 Baso % (Auto) 1.1 % 08/17/22 06:15 Neut # (Auto) 7.97 10^3/uL (1.8-7.7) H 08/17/22 06:15 Lymph # (Auto) 3.4 10^3/uL (0.8-4.8) 08/17/22 06:15 [place] # (Auto) 0.7 10^3/uL (0.2-0.9) 08/17/22 06:15 Eos # (Auto) 1.7 10^3/uL (0.0-0.8) H 08/17/22 06:15 Baso # (Auto) 0.2 10^3/uL (0.0-0.1) H 08/17/22 06:15 Nucleated RBC % (auto) 0 % 08/17/22 06:15 Nucleated RBCs # 0.0 /100WBC 08/17/22 06:15 Sodium 137 mmol/L (136-145) 08/17/22 06:15 Potassium 4.2 mmol/L (3.5-5.1) 08/17/22 06:15 Chloride 102 mmol/L (98-107) 08/17/22 06:15 Carbon Dioxide 25 mmol/L (22-29) 08/17/22 06:15 Anion Gap 14.2 (5-19) 08/17/22 06:15 BUN 8 mg/dL (6-20) 08/17/22 06:15 Creatinine 1.0 mg/dL (0.7-1.2) 08/17/22 06:15 GFR Calculation 90.3 mL/min (90-130) 08/17/22 06:15 Glucose 106 mg/dL (65-115) 08/17/22 06:15 Calculated Osmolality 283 mOsm/kg (285-295) L 08/17/22 06:15 Calcium 10.1 mg/dL (8.5-10.5) 08/17/22 06:15 Total Bilirubin 0.4 mg/dL (0.15-1.2) 08/17/22 06:15 AST 15 U/L (0-40) 08/17/22 06:15 ALT 18 U/L (0-41) 08/17/22 06:15 Alkaline Phosphatase 72 U/L (40-130) 08/17/22 06:15 Troponin T Baseline 6 ng/L (0-15) 08/17/22 06:15 Troponin T 120 Minute 6.00 ng/L (0-15) 08/17/22 08:02 Delta Troponin T 0 ABS# (0-10) 08/17/22 08:02 Total Protein 6.5 g/dL (6.6-8.7) L 08/17/22 06:15 Albumin 4.3 g/dL (3.5-5.2) 08/17/22 06:15 Globulin 2.2 g/dL (1.3-4.6) 08/17/22 06:15 Lipase 60 U/L (13-60) 08/17/22 06:15 Urine Color [place] (Yellow) 08/17/22 08:20 Urine Appearance Clear (CLEAR) 08/17/22 08:20 Urine pH 5 (5-7) 08/17/22 08:20 Ur Specific [place] 1.030 (1.005-1.030) 08/17/22 08:20 Urine Protein Trace (Negative) 08/17/22 08:20 Urine Glucose (UA) Norm (Normal) 08/17/22 08:20 Urine Ketones 1+ (Negative) H 08/17/22 08:20 Urine Blood Neg (Negative) 08/17/22 08:20 Urine Nitrate Negative (Negative) 08/17/22 08:20 Urine Bilirubin 1+ (Negative) H 08/17/22 08:20 Urine Urobilinogen Norm mg/dL (Negative) 08/17/22 08:20 Ur Leukocyte Esterase Negative (Negative) 08/17/22 08:20 Urine RBC 0-4 /hpf (0-2) H 08/17/22 08:20 Urine WBC 0-4 /hpf (0-5) H 08/17/22 08:20 Ur Squamous Epith Cells 0-4 /hpf (0-5) H 08/17/22 08:20 Amorphous Sediment Not Reportable 08/17/22 08:20 Urine Bacteria 1+ /hpf (NONE) H 08/17/22 08:20 Discharge Plan Discharge Patient Disposition: Home Clinical Impression: Chest pain due to gastrointestinal reflux disease Condition: Stable Prescriptions: New Protonix 40 mg tablet,delayed release (DR/EC) 40 mg PO BID Qty: 30 0RF Rx Instructions: 1 pill twice daily for 2 weeks then 1 pill daily follow-up with your primary care to continue No Action ondansetron 4 mg tablet,disintegrating 4 mg PO Q8H PRN (Reason: nausea and vomiting) Qty: 10 0RF ibuprofen 600 mg tablet 600 mg PO Q8H PRN (Reason: pain) Qty: 30 0RF aspirin 81 mg tablet,delayed release (DR/EC) 81 mg PO DAILY Qty: 30 0RF Discharge Orders: Discharge ED (Routine); Ordered 08/17/22 Ordered By: Manpreet Gerber Discharge Diet: Usual diet Discharge Activity: Resume usual activity Patient Instructions: Opioid Safety, Pain Management Activity Restrictions/Additional Instructions: Follow-up with your primary care doctor within the next 2 weeks to continue the pantoprazole. Coding Level of Care Code ED Cartridge Loading Operator for Galilea Fwd Exam Detailed
[2022-08-17 06:20] LABS: Basophils # 0.2 10^3/uL (0.0-0.1); Basophils % 1.1 %; Eosinophils # 1.7 10^3/uL (0.0-0.8); Eosinophils % 12.4 %; Hematocrit 44.2 % (42.0-52.0); Hemoglobin 14.9 g/dL (11.7-16.6); Lymphocytes # 3.4 10^3/uL (0.8-4.8); Lymphocytes % 24.5 %; Mean Corpuscular HGB Conc 33.7 g/dL (30.0-36.0); Mean Corpuscular Hemoglobin 29.6 pg (28.0-34.0); Mean Corpuscular Volume 87.9 fl (80-94); Mean Platelet Volume 9.5 fL (7.4-10.4); Monocytes # 0.7 10^3/uL (0.2-0.9); Monocytes % 4.7 %; Neutrophils # 7.97 10^3/uL (1.8-7.7); Neutrophils % 56.8 %; Nucleated Red Blood Cells % 0 %; Platelet Count 352 10^3/cmm (130-400); Red Blood Count 5.03 10^6/uL (4.1-5.3); Red Cell Distribution Width 13.9 % (12.1-15.1)
[2022-08-17] MEDS: sodium chloride 0.9% 1,000 ML 999 ML IV (06:20)
[2022-08-17 06:31] VITALS: BP 122/71; PULSE 82; RESP 16; O2SAT 97
[2022-08-17] MEDS: lidocaine 2% viscous 15 ML, aluminum-mag hydrox-simethicon 30 ML, sucralfate oral liq 1 GM PO (06:31)
[2022-08-17 06:52] LABS: Alanine Aminotransferase 18 U/L (0-41); Albumin Level 4.3 g/dL (3.5-5.2); Alkaline Phosphatase 72 U/L (40-130); Anion Gap 14.2 (5-19); Aspartate Amino Transferase 15 U/L (0-40); Blood Urea Nitrogen 8 mg/dL (6-20); Calcium 10.1 mg/dL (8.5-10.5); Carbon Dioxide 25 mmol/L (22-29); Chloride 102 mmol/L (98-107); Globulin 2.2 g/dL (1.3-4.6); Glomerular Filtration Rate 90.3 mL/min (90-130); Glucose 106 mg/dL (65-115); Lipase 60 U/L (13-60); Osmolality Calculated 283 mOsm/kg (285-295); Potassium 4.2 mmol/L (3.5-5.1); Sodium 137 mmol/L (136-145); Total Bilirubin 0.4 mg/dL (0.15-1.2); Total Protein 6.5 g/dL (6.6-8.7)
[2022-08-17 06:53] LABS: Troponin(5th) Baseline 6 ng/L (0-15)
[2022-08-17 07:00] VITALS: BP 105/58; PULSE 71; O2SAT 95
[2022-08-17 08:00] VITALS: BP 99/56; PULSE 74; O2SAT 95
--- NOTE | 2022-08-17 08:07 | ECG_ITS ---
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 Measurements Intervals [place] Rate: 64 P: 27 OR: 179 QRS: 77 QRSD: 89 T: 11 QT: 359 QTc: 372 Interpretive Statements SINUS RHYTHM WITH SINUS ARRHYTHMIA EARLY REPOLARIZATION [ST ELEVATION WITH NORMALLY INFLECTED T-WAVE] Compared to ECG 08/17/2022 06:09:33 No significant changes Electronically Signed On 08-18-2022 7:12:22 CDT by Benedict Atkins M.D. [id number]
[2022-08-17 09:00] VITALS: BP 104/76; PULSE 71; O2SAT 97
[2022-08-17 09:26] LABS: Troponin 5 2HR Delta 0 ABS# (0-10)
[2022-08-17 09:53] LABS: Urine Appearance Clear (CLEAR); Urine Color Amber (Yellow); pH Urine 5 (5-7)
[2022-08-17 09:54] LABS: Add Urine Microscopic? YES; Bilirubin Urine 1+ (Negative); Blood Urine Neg (Negative); Glucose Urine UA Norm (Normal); Ketones Urine 1+ (Negative); Leukocyte Esterase Urine Negative (Negative); Nitrate Urine Negative (Negative); Protein Urine Trace (Negative); Urobilinogen Urine Norm (Negative)
[2022-08-17 10:00] VITALS: BP 118/77; PULSE 68; O2SAT 96
[2022-08-17 10:11] LABS: Add Urine Culture? No; Bacteria Urine 1+ /hpf; RBC Urine 0-4 /hpf (0-2); Squamous Epithelial Cell Urine 0-4 /hpf (0-5); WBC Urine 0-4 /hpf (0-5)
== END 2022-08-17 10:32 | disposition home or self-care (01) ==
PROVIDERS: Emergency Provider Family Medicine; PCP Nurse Practitioner
DX: K21.9 Gastro-esophageal reflux disease without esophagitis (principal); Z79.82 Long term (current) use of aspirin; F17.210 Nicotine dependence, cigarettes, uncomplicated
CPT/HCPCS: 36415; 80053; 81001; 83690; 84484; 85025; 93005; 96360; 99285; J7030

== ENCOUNTER → 2022-11-03 14:25 | Outpatient (BNVA) | payer MEDICAID, SELFPAY | PROVIDERS: PCP Nurse Practitioner; Visit Provider Nurse Practitioner Family | DX: R50.9 Fever, unspecified (principal); J02.9 Acute pharyngitis, unspecified; U07.1 COVID-19 | CPT/HCPCS: 87071; 87400; 87426; 87880 ==

== ENCOUNTER 2023-02-02 23:00 | Emergency (ER) | payer MEDICAID, SELFPAY ==
[2023-02-02 23:03] VITALS: BP 145/86; PULSE 104; RESP 13; TEMP 36.6; O2SAT 97
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
[2023-02-03] MEDS: ketorolac 60 mg/2 mL INJ IM (02:43)
[2023-02-03] MEDS: tetanus-diphtheria tox (adult) 0.5 mL SDV IM (02:43)
[2023-02-03 02:48] VITALS: BP 117/69; PULSE 78; RESP 18; O2SAT 97
== END 2023-02-03 02:49 | disposition home or self-care (01) ==
PROVIDERS: Emergency Provider Nurse Practitioner Family; PCP Nurse Practitioner
DX: S00.431A Contusion of right ear, initial encounter (principal); T14.8XXA Other injury of unspecified body region, initial encounter; W31.89XA Contact with other specified machinery, initial encounter
CPT/HCPCS: 70450; 72125; 73030; 90471; 90714; 96372; 99284; J1885

== ENCOUNTER 2023-03-01 13:43 | Emergency (ER) | payer MEDICAID, SELFPAY ==
[2023-03-01] VITALS (7 sets, daily range): BP systolic 119–191; BP diastolic 70–93; PULSE 57–73; RESP 18–22; TEMP 36.8; O2SAT 93–98; BMI 35.4
--- NOTE | 2023-03-01 13:59 | ECG_ITS ---
[facility] Test Date: 2023-03-01 Pat Name: Adrián Bangura Department: Room: Gender: Male Watch Engineer: : 1995 Requested By: Manpreet Galaviz Order Number: [id number] Miguel MD: Liat Gonzales M.D. Measurements Intervals [place] Rate: 70 P: 3 DC: 172 QRS: -13 QRSD: 94 T: 82 QT: 376 QTc: 408 Interpretive Statements SINUS RHYTHM WITH OCCASIONAL SUPRAVENTRICULAR PREMATURE COMPLEXES NONSPECIFIC ST & T-WAVE ABNORMALITY Compared to ECG 08/17/2022 09:40:46 T-wave abnormality now present Sinus arrhythmia no longer present Early repolarization no longer present Electronically Signed On 03-01-2023 21:02:01 CDT by Liat Gonzales M.D. [id number]
--- NOTE | 2023-03-01 14:16 | XRR_ITS ---
PROCEDURE INFORMATION: Exam: XR Chest Exam date and time: 03/01/2023 2:22 PM Age: 27 years old Clinical indication: Cough and dyspnea; Additional info: Dyspnea/cough TECHNIQUE: Imaging protocol: Radiologic exam of the chest. Views: 1 view. COMPARISON: CT cervical spin wo con* [id number] 02/03/2023 12:34 AM FINDINGS: Lungs: Unremarkable. No consolidation. Pleural spaces: Unremarkable. No pleural effusion. No pneumothorax. Heart/Mediastinum: Unremarkable. No cardiomegaly. Bones/joints: Unremarkable. XR/XR chest 1V portable [id number] IMPRESSION: No acute findings.
--- NOTE | 2023-03-01 14:17 | W.ED.CHESTPA ---
HPI - Chest Pain General: Chief Complaint: Chest Pain Stated Complaint: cp Time Seen by Provider: 03/01/23 14:10 Source: patient Mode of arrival: ambulatory History of Present Illness: 27-year-old male presents emergency room with complaints of chest wall pain but more pain when he takes a deep breath and with palpation pain began approximately 4 hours ago he spontaneously denies any trauma or injury to that area no falls. No rash. No previous episodes. He has not recently been ill no fever sweats chills productive cough. No personal history of any cardiac arrhythmias or chronic respiratory illness. MD complaint: chest pain Onset (ago): hour(s) Timing of current episode: constant Pain location: left chest Pain radiation: none Severity: severe Quality: sharp Relieving factors: nothing Exacerbating factors: nothing Associated symptoms: Deny abdominal pain, diaphoresis, dyspnea, fever(s), leg edema, nausea, palpitations, sense of impending doom, syncope or vomiting Review of Systems Const: Denies: fever(s), chills, fatigue, malaise or diaphoresis ENMT: Denies: throat pain, ear or mastoid pain, nasal discharge or nasal congestion Card: Reports: chest pain; Denies: palpitations, irregular heart rhythm, edema or syncope Resp: Denies: dyspnea, productive cough or wheezing GI: Denies: abdominal pain, nausea or vomiting : Denies: flank pain, dysuria, urinary frequency or urinary urgency Skin/Breast: Denies: rash or pruritus [facility] ED PFSH: Medical History GERD (gastroesophageal reflux disease) No pertinent family history Surgical History No pertinent past surgical history Social History Smoking and tobacco status: current every day smoker Alcohol intake: never Physical Exam Const: GENERAL APPEARANCE: cooperative and comfortable ORIENTATION/CONSCIOUSNESS: Yes awake, Yes oriented to person, Yes oriented to place and Yes oriented to time HENMT: COMMON NORMALS: normocephalic, atraumatic and hearing grossly normal bilaterally HEAD & SCALP: normocephalic and atraumatic Chest: OTHER: Point tenderness in the left anterior chest wall at the anterior curvature of the ribs along the anterior axillary line. Pain is reproducible. No subcutaneous crepitus is noted no bruising no rash Resp: COMMON NORMALS: normal respiratory effort, No retractions, No use of accessory muscles and clear to auscultation bilaterally AUSCULTATION: clear to auscultation bilaterally Cardio: COMMON NORMALS: regular rate, regular rhythm and No murmurs present (Cardio) RATE: regular rate RHYTHM: regular rhythm GI: COMMON NORMALS: Soft to palpation and No hepatosplenomegaly present AUSCULTATION: Yes normoactive bowel sounds PALPATION: Yes Soft to palpation, No Tenderness to palpation present (GI), No Guarding due to palpation present (GI) and Yes No hepatosplenomegaly present Extremity: COMMON NORMALS: normal to inspection, capillary refill normal, no clubbing, cyanosis or edema, no calf tenderness and no pedal edema Neuro: SENSORIUM/ORIENTATION: Yes oriented to person, Yes oriented to place and Yes oriented to time Skin: COMMON NORMALS: no rashes or lesions noted GENERAL SKIN EXAM: no rashes or lesions noted Course Vital Signs: Vital signs: Vital Signs Temperature 98.2 F 03/01/23 13:55 Pulse Rate 73 03/01/23 15:57 Respiratory Rate 18 03/01/23 15:10 Blood Pressure 119/93 03/01/23 15:57 Pulse Oximetry 98 03/01/23 18:19 Oxygen Delivery Me thod Room Air 03/01/23 15:30 MDM - Chest Pain Medical Decision Making EKG unremarkable Labs imaging reviewed no significant findings. Pain is reproducible to palpation movement and deep inspiration. Will discharge home with pain medications nausea meds can use ibuprofen as well if not improving recheck if symptoms change return to the emergency room. He was not tachycardic or hypertensive during his stay in the emergency room is no evidence of PE pneumonia pneumothorax widening mediastinum. No evidence of acute coronary syndrome. Medical Records I reviewed the patient's medical records. Lab Data I reviewed the patient's lab results. 03/01/23 14:18 03/01/23 14:18 Radiology Impressions Chest X-Ray 03/01/23 14:16 IMPRESSION: No acute findings. Laboratory Results WBC 14.1 10^3/uL (4.0-10.0) H 03/01/23 14:18 RBC 5.68 10^6/uL (4.1-5.3) H 03/01/23 14:18 Hgb 16.1 g/dL (11.7-16.6) 03/01/23 14:18 Hct 48.8 % (42.0-52.0) 03/01/23 14:18 MCV 85.9 fl (80-94) 03/01/23 14:18 MCH 28.3 pg (28.0-34.0) 03/01/23 14:18 MCHC 33.0 g/dL (30.0-36.0) 03/01/23 14:18 RDW 13.7 % (12.1-15.1) 03/01/23 14:18 Plt Count 382 10^3/cmm (130-400) 03/01/23 14:18 MPV 9.6 fL (7.4-10.4) 03/01/23 14:18 Neut % (Auto) 68.1 % 03/01/23 14:18 Lymph % (Auto) 24.2 % 03/01/23 14:18 [place] % (Auto) 4.7 % 03/01/23 14:18 Eos % (Auto) 1.7 % 03/01/23 14:18 Baso % (Auto) 0.9 % 03/01/23 14:18 Neut # (Auto) 9.59 10^3/uL (1.8-7.7) H 03/01/23 14:18 Lymph # (Auto) 3.4 10^3/uL (0.8-4.8) 03/01/23 14:18 [place] # (Auto) 0.7 10^3/uL (0.2-0.9) 03/01/23 14:18 Eos # (Auto) 0.2 10^3/uL (0.0-0.8) 03/01/23 14:18 Baso # (Auto) 0.1 10^3/uL (0.0-0.1) 03/01/23 14:18 Nucleated RBC % (auto) 0 % 03/01/23 14:18 Nucleated RBCs # 0.0 /100WBC 03/01/23 14:18 Sodium 144 mmol/L (136-145) 03/01/23 14:18 Potassium 5.2 mmol/L (3.5-5.1) H 03/01/23 14:18 Chloride 107 mmol/L (98-107) 03/01/23 14:18 Carbon Dioxide 27 mmol/L (22-29) 03/01/23 14:18 Anion Gap 15.2 (5-19) 03/01/23 14:18 BUN 12 mg/dL (6-20) 03/01/23 14:18 Creatinine 0.9 mg/dL (0.7-1.2) 03/01/23 14:18 GFR Calculation 101.2 mL/min (90-130) 03/01/23 14:18 Glucose 141 mg/dL (65-115) H 03/01/23 14:18 Calculated Osmolality 300 mOsm/kg (285-295) H 03/01/23 14:18 Calcium 9.9 mg/dL (8.5-10.5) 03/01/23 14:18 Total Bilirubin 0.6 mg/dL (0.15-1.2) 03/01/23 14:18 AST 16 U/L (0-40) 03/01/23 14:18 ALT 14 U/L (0-41) 03/01/23 14:18 Alkaline Phosphatase 78 U/L (40-130) 03/01/23 14:18 Troponin T Gen 5 ng/L 6 ng/L (0-15) 03/01/23 14:18 Total Protein 7.4 g/dL (6.6-8.7) 03/01/23 14:18 Albumin 4.5 g/dL (3.5-5.2) 03/01/23 14:18 Globulin 2.9 g/dL (1.3-4.6) 03/01/23 14:18 Urine Color Yellow (Yellow) 03/01/23 15:19 Urine Appearance Clear (CLEAR) 03/01/23 15:19 Urine pH 5 (5-7) 03/01/23 15:19 Ur Specific [place] 1.030 (1.005-1.030) 03/01/23 15:19 Urine Protein Neg (Negative) 03/01/23 15:19 Urine Glucose (UA) Norm (Normal) 03/01/23 15:19 Urine Ketones Negative (Negative) 03/01/23 15:19 Urine Blood Neg (Negative) 03/01/23 15: Urine Nitrate Negative (Negative) 03/01/23 15:19 Urine Bilirubin Neg (Negative) 03/01/23 15:19 Urine Urobilinogen Neg mg/dL (Negative) 03/01/23 15:19 Ur Leukocyte Esterase Negative (Negative) 03/01/23 15:19 Urine Opiates Screen Positive ng/mL (Negative) H 03/01/23 15:19 Ur Barbiturates Screen Negative ng/mL (Negative) 03/01/23 15:19 Ur Phencyclidine Scrn Negative ng/mL (Negative) 03/01/23 15:19 Ur Amphetamines Screen Negative ng/mL (Negative) 03/01/23 15:19 U Benzodiazepines Scrn Negative ng/mL (Negative) 03/01/23 15:19 Urine Cocaine Screen Negative ng/mL (Negative) 03/01/23 15:19 U Marijuana (THC) Screen Negative ng/mL (Negative) 03/01/23 15:19 Discharge Plan Discharge Patient Disposition: Home Clinical Impression: Acute chest wall pain, Dyspepsia Condition: Stable Prescriptions: New hydrocodone-acetaminophen 5-325 mg tablet 1 tab PO Q6H PRN (Reason: pain) Qty: 15 0RF promethazine 25 mg tablet 25 mg PO Q6H PRN (Reason: nausea and vomiting) Qty: 20 0RF No Action Protonix 40 mg tablet,delayed release (DR/EC) 40 mg PO DAILY Qty: 90 0RF Discharge Orders: Discharge ED (Routine); Ordered 03/01/23 Ordered By: Manpreet Gerber Referrals: Hugh Banerjee, CHAIR CANER-C [Primary Care Provider] - Patient Instructions: Opioid Safety, Pain Management Activity Restrictions/Additional Instructions: You are seen today for chest wall pain. Pain improved with pain medications and is reproduced with palpation of the chest. There also appeared to be a GI component to it as well. Recommended that you continue your Protonix increased to twice daily for a week and then go back to once daily use promethazine or hydrocodone as needed for pain. Coding Level of Care Code ED Medical Staff Services Coordinator for Galilea Mcgill
[2023-03-01] MEDS: morphine 4 mg/mL SDV 1 mL IVP (14:31)
[2023-03-01 14:32] LABS: Basophils # 0.1 10^3/uL (0.0-0.1); Basophils % 0.9 %; Eosinophils # 0.2 10^3/uL (0.0-0.8); Eosinophils % 1.7 %; Hematocrit 48.8 % (42.0-52.0); Hemoglobin 16.1 g/dL (11.7-16.6); Lymphocytes # 3.4 10^3/uL (0.8-4.8); Lymphocytes % 24.2 %; Mean Corpuscular Hemoglobin 28.3 pg (28.0-34.0); Mean Corpuscular Volume 85.9 fl (80-94); Mean Platelet Volume 9.6 fL (7.4-10.4); Monocytes # 0.7 10^3/uL (0.2-0.9); Monocytes % 4.7 %; Neutrophils # 9.59 10^3/uL (1.8-7.7); Neutrophils % 68.1 %; Nucleated Red Blood Cells % 0 %; Platelet Count 382 10^3/cmm (130-400); Red Blood Count 5.68 10^6/uL (4.1-5.3); Red Cell Distribution Width 13.7 % (12.1-15.1); White Blood Count 14.1 10^3/uL (4.0-10.0)
[2023-03-01] MEDS: ketorolac 30 mg/mL INJ IVP (14:32)
[2023-03-01] MEDS: sodium chloride 0.9% 1,000 ML 999 ML IV (14:33)
[2023-03-01] MEDS: promethazine 25 mg/mL SDV 1 mL IM (14:33)
[2023-03-01 14:42] LABS: Alanine Aminotransferase 14 U/L (0-41); Albumin Level 4.5 g/dL (3.5-5.2); Alkaline Phosphatase 78 U/L (40-130); Anion Gap 15.2 (5-19); Aspartate Amino Transferase 16 U/L (0-40); Blood Urea Nitrogen 12 mg/dL (6-20); Calcium 9.9 mg/dL (8.5-10.5); Carbon Dioxide 27 mmol/L (22-29); Chloride 107 mmol/L (98-107); Creatinine Clr Calc Pharmacy 149.9078; Globulin 2.9 g/dL (1.3-4.6); Glomerular Filtration Rate 101.2 mL/min (90-130); Glucose 141 mg/dL (65-115); Osmolality Calculated 300 mOsm/kg (285-295); Potassium 5.2 mmol/L (3.5-5.1); Sodium 144 mmol/L (136-145); Total Bilirubin 0.6 mg/dL (0.15-1.2); Total Protein 7.4 g/dL (6.6-8.7)
--- NOTE | 2023-03-01 14:55 | ECG_ITS ---
[facility] Test Date: 2023-03-01 Pat Name: Adrián Bangura Department: Room: Gender: Male [employer] K[employer]: : 1995 Requested By: Manpreet Galaviz Order Number: [id number] Miguel MD: Liat Gonzales M.D. Measurements Intervals [place] Rate: 68 P: 25 SD: 182 QRS: -21 QRSD: 83 T: 38 QT: 374 QTc: 400 Interpretive Statements SINUS RHYTHM WITH OCCASIONAL SUPRAVENTRICULAR PREMATURE COMPLEXES BORDERLINE LEFT AXIS DEVIATION [QRS AXIS < -20] POSSIBLE RIGHT VENTRICULAR CONDUCTION DELAY [RSR (QR) IN V1/V2] ST ELEVATION, PROBABLY EARLY REPOLARIZATION [ST ELEVATION WITH NORMALLY INFLECTED T-WAVE] Compared to ECG 03/01/2023 13:56:38 ST (T wave) deviation now present Early repolarization now present T-wave abnormality no longer present Electronically Signed On 03-01-2023 21:02:39 CDT by Liat Gonzales M.D. [id number]
[2023-03-01] MEDS: morphine 4 mg/mL SDV 1 mL 2 MG IVP (15:10)
[2023-03-01 15:32] LABS: Add Urine Microscopic? NO; Charge for UA Resulting for Rev
[2023-03-01 15:37] LABS: Bilirubin Urine Neg (Negative); Blood Urine Neg (Negative); Glucose Urine UA Norm (Normal); Ketones Urine Negative (Negative); Leukocyte Esterase Urine Negative (Negative); Nitrate Urine Negative (Negative); Protein Urine Neg (Negative); Urine Appearance Clear (CLEAR); Urine Color Yellow (Yellow); Urobilinogen Urine Neg (Negative); pH Urine 5 (5-7)
[2023-03-01 16:17] LABS: Amphetamines Screen Urine Negative (Negative); Barbiturates Screen Urine Negative (Negative); Benzodiazepines Screen Urine Negative (Negative); Cocaine Screen Urine Negative (Negative); Opiate Screen Urine Positive (Negative); PCP Screen Urine Negative (Negative); THC Screen Urine Negative (Negative)
[2023-03-01 18:13] LABS: Troponin T (5th) Once 6 ng/L (0-15)
== END 2023-03-01 18:20 | disposition home or self-care (01) ==
PROVIDERS: Emergency Provider Family Medicine; PCP Nurse Practitioner
DX: R07.89 Other chest pain (principal); R10.13 Epigastric pain; F17.210 Nicotine dependence, cigarettes, uncomplicated
CPT/HCPCS: 71045; 80053; 80306; 81003; 84484; 85025; 93005; 96372; 96374; 96375; 96376; 99285; J1885; J2270; J2550; J7030

== ENCOUNTER 2023-06-15 21:34 | Emergency (ER) | payer MEDICAID, SELFPAY ==
--- NOTE | 2023-06-15 21:38 | XRR_ITS ---
PROCEDURE INFORMATION: Exam: XR Right Foot Exam date and time: 06/15/2023 9:53 PM Age: 27 years old Clinical indication: Pain; Foot; Right; Additional info: Injury TECHNIQUE: Imaging protocol: Radiologic exam of the right foot. Views: 3 or more views. COMPARISON: No relevant prior studies available. FINDINGS: Bones/joints: Normal. Soft tissues: Normal. XR/XR foot RT min 3V* [id number] IMPRESSION: No acute findings.
[2023-06-15 21:44] VITALS: BP 124/83; PULSE 105; RESP 18; TEMP 37; O2SAT 91; BMI 35.4
--- NOTE | 2023-06-15 22:19 | ED_ITS ---
HPI - Extremity Problem General: Chief complaint: Extremity Injury, Lower Stated complaint: right foot injury Time Seen by Provider: 06/15/23 21:43 Source: patient Mode of arrival: ambulatory Limitations: no limitations History of Present Illness: 27-year-old male states he had a piece of metal go through his left great toe yesterday he was not wearing any shoes. He states he believes he got all the metal out but he is concerned he may be getting infection he had some increased pain and slight erythema. He denies any fevers rates his pain a 2 out of 10. Associated symptoms: Deny chest pain, fever(s) or rash Review of Systems Const: Denies: fever(s) or chills ENMT: Denies: throat pain or dental pain Card: Denies: chest pain Resp: Denies: dyspnea GI: Denies: abdominal pain, nausea, vomiting or diarrhea Musc: Reports: extremity pain; Denies: neck pain or back pain Skin/Breast: Denies: rash Neuro: Denies: headache(s) PFSH ED PFSH: Medical History GERD (gastroesophageal reflux disease) No pertinent family history Surgical History No pertinent past surgical history Social History Smoking and tobacco status: current every day smoker Alcohol intake: never Physical Exam Const: COMMON NORMALS: no acute distress and patient oriented x3 HENMT: COMMON NORMALS: normocephalic and atraumatic HEAD & SCALP: normocephalic and atraumatic Neck/C-Spine: COMMON NORMALS: supple Chest: COMMONS NORMALS: normal inspection of the chest Resp: COMMON NORMALS: normal respiratory effort Cardio: COMMON NORMALS: regular rate RATE: regular rate GI: INSPECTION: Yes normal to inspection Extremity: OTHER: Puncture wound to right great toe slight erythema to the toe no drainage Neuro: COMMON NORMALS: patient oriented x3 Course Vital Signs: Vital signs: Vital Signs Temperature 98.6 F 06/15/23 21:44 Pulse Rate 105 H 06/15/23 21:44 Respiratory Rate 18 06/15/23 21:44 Blood Pressure 124/83 08/24/23 21:44 Pulse Oximetry 91 06/15/23 21:44 MDM - Extremity (Nontraumatic) Medical Decision Making Patient presents with puncture wound to his left toe x-ray shows no retained foreign bodies he has some mild erythema we will place him on Keflex he is return if he has any worsening erythema he understands agrees to plan. Lab Data Radiology Impressions Foot X-Ray 06/15/23 21:38 IMPRESSION: No acute findings. Discharge Plan Discharge Patient Disposition: Home Clinical Impression: Puncture wound of foot Condition: Stable Prescriptions: New cephalexin 500 mg capsule 500 mg PO TID 7 Days Qty: 21 0RF No Action Protonix 40 mg tablet,delayed release (DR/EC) 40 mg PO DAILY Qty: 30 0RF hydrocodone-acetaminophen 5-325 mg tablet 1 tab PO Q6H PRN (Reason: pain) Qty: 15 0RF promethazine 25 mg tablet 25 mg PO Q6H PRN (Reason: nausea and vomiting) Qty: 20 0RF Discharge Orders: Discharge ED (Routine); Ordered 06/15/23 Ordered By: Mame Alejandre Referrals: Hugh Banerjee, ELECTRICAL ENGINEERING DRAFTING OFFICER-C [Primary Care Provider] - 1-3 days Discharge Diet: Advance as tolerated Discharge Activity: Resume usual activity Patient Instructions: Puncture Wound (ED) Coding Level of Care Code ED Cuprous Chloride Operator for Galilea Mcgill
[2023-06-15 22:36] VITALS: PULSE 80; RESP 16; O2SAT 96
== END 2023-06-15 22:38 | disposition home or self-care (01) ==
PROVIDERS: Emergency Provider Emergency Medicine; PCP Nurse Practitioner
DX: S91.131A Puncture wound without foreign body of right great toe without damage to nail, initial encounter (principal); W26.8XXA Contact with other sharp object(s), not elsewhere classified, initial encounter; F17.210 Nicotine dependence, cigarettes, uncomplicated
CPT/HCPCS: 73630; 99283

== ENCOUNTER → 2023-06-28 15:22 | Outpatient (BNVA) | payer MEDICAID, SELFPAY | PROVIDERS: PCP Nurse Practitioner Family; Visit Provider Nurse Practitioner Family | DX: K21.9 Gastro-esophageal reflux disease without esophagitis (principal); R73.9 Hyperglycemia, unspecified | CPT/HCPCS: 80053; 83036; 85025 ==

== ENCOUNTER 2023-07-03 06:01 | Outpatient (CLI) | payer MEDICAID, SELFPAY ==
--- NOTE | 2023-07-03 06:15 | US_ITS ---
WS: [id number] RIGHT UPPER QUADRANT ULTRASOUND HISTORY: R10.11 - Right upper quadrant pain COMPARISON: 07/31/2015 Liver: 13.3 cm in length. Normal size liver and echogenicity. No bile duct dilatation or mass. Portal Vein: Normal hepatopetal flow with monophasic waveform. Gallbladder: Normal distended gallbladder. There are several stones within the gallbladder. The large st near the neck of the gallbladder measures 1.9 cm. The stones were not identified in 2014. No wall thickening or pericholecystic fluid. CBD: 0.3 cm Pancreas: Normal size and echogenicity. Right kidney: 9.4 cm in length. Normal size and echogenicity. No hydronephrosis or mass. Aorta and IVC: Unremarkable abdominal aorta and IVC. No ascites. IMPRESSION: 1. Cholelithiasis. Numerous stones are present. The stones are new since 2014. Recommend surgical meli luation. 2. No bile duct dilatation.
== END 2023-07-03 06:02 | disposition home or self-care (01) ==
LOC: RAD 06:02
PROVIDERS: PCP Nurse Practitioner Family; Visit Provider Nurse Practitioner Family
DX: K80.20 Calculus of gallbladder without cholecystitis without obstruction (principal)
CPT/HCPCS: 76705

== ENCOUNTER 2023-08-23 07:13 | Day surgery (SDC) | payer MEDICAID, SELFPAY ==
[2023-08-23] VITALS (9 sets, daily range): BP systolic 109–167; BP diastolic 59–102; PULSE 84–102; RESP 16–18; TEMP 36.2–36.6; O2SAT 92–97
--- NOTE | 2023-08-23 06:32 | W.PM.OPSFHP ---
Same Day Surgery H&P Indication for Procedure/HPI DATE OF PROCEDURE: August 23, 2023 CHIEF COMPLAINT/INDICATIONFOR SURGICAL PROCEDURE: symptomatic cholelithiasis PREOP DIAGNOSIS: symptomatic cholelithiasis PLANNED PROCEDURE: Operation Date: 08/23/23 08:45 Proposed Procedures p 45470 Lap Tasha K82.9(Not Applicable) - Isauro Wyatt MD Medications/Allergies* Allergies/Adverse Reactions Allergy/AdvReac Type Severity Reaction Status Date / Time Penicillins Allergy Unknown Unknown Verified 08/22/23 12:47 Pertinent History/Comorbid Conditions* Medical History (Updated 06/28/23 @ 14:53 by HIPOLITO Cowan) GERD (gastroesophageal reflux disease) No pertinent family history Surgical History (Updated 01/05/22 @ 01:01 by SAMMY Saldaña) No pertinent past surgical history Social History Smoking and tobacco/nicotine status: current every day tobacco/nicotine user Alcohol intake: never Pertinent Exam Findings alert, oriented x 3, clear to auscultation bilaterally and regular rate & rhythm Recommendations Surgery/Procedure today Coding Level of Care Code Acute Code for Chg Fwd Diagnoses
[2023-08-23] MEDS: sodium chloride 0.9% 1,000 ML 30 ML IV (07:35)
--- NOTE | 2023-08-23 07:50 | ANES.PREANE2 ---
Pre-Anesthetic Assessment Height/Weight: Height 1.75 m Weight 108.862 kg Temp Pulse Resp BP Pulse Ox O2 Del Method 97.7 F 96 18 167/85 97 Room Air 08/23/23 07:15 08/23/23 07:15 08/23/23 07:15 08/23/23 07:15 08/23/23 07:15 08/23/23 07:27 Preop Diagnosis: symptomatic cholelithiasis Operation Date: 08/23/23 08:45 Proposed Procedures p 39414 Lap Tasha K82.9(Not Applicable) - Isauro Wyatt MD Familial anesthetic complications: none Was Beta Nnamdi taken within 24 hours: N/A Was Clonidine taken within 24 hours: N/A Last intake: Intake Last Liquid Date 08/22/23 Last Liquid Time 22:30 Last Solid Date 08/22/23 Last Solid Time 22:30 Social Tobacco and No alcohol 0.5 pack(s) per day 10 pack years Exam alert, oriented x 3, clear to auscultation bilaterally and regular rate & rhythm Airway Submandibular: within normal limits Cervical ROM: within normal limits Mallampati: Class II Dentition: other Pulmonary None reported CV/HEM None reported None reported Hepatic None reported GI Gastroesophageal Reflux Disease Metabolic None reported Musc/skel None reported Neuropsych None reported Anesthetic Plan ASA status: 2 Anesthesia: General Risk of > 500 ml blood loss (7ml/kg in children): No Medications/Allergies Home Medications Medication Instructions Recorded Confirmed Last Taken Type pantoprazole 40 mg tablet,delayed 40 mg PO BID #60 tabs 06/28/23 08/22/23 08/19/23 Rx release (Protonix) Allergies Allergy/AdvReac Type Severity Reaction Status Date / Time Penicillins Allergy Mild ALGY-Rash Verified 08/23/23 07:19 Current Medications Generic Name Dose Route Start Last Admin Trade Name Freq PRN Reason Stop Dose Admin Sodium Chloride 1,000 mls @ 30 mls/hr 08/23/23 07:15 08/23/23 07:35 Sodium Chloride 0.9% IV 08/24/23 07:14 30 mls/hr .Q24H SREE Administration PFSH Anesthesia Medical History GERD (gastroesophageal reflux disease) No pertinent family history Surgical History No pertinent past surgical history Social History Smoking and tobacco/nicotine status: current every day tobacco/nicotine user Alcohol intake: never Data Anesthesia Cardiac Studies: No Data to Display
[2023-08-23] MEDS: vancomycin 1,000 MG in sodium chloride 0.9% 250 ML 250 MG IV (09:02)
[2023-08-23] MEDS: lidocaine-epi 1% PF 1:200,000 30 mL SDV INJECTION (10:24)
[2023-08-23] MEDS: BUPivacaine 0.25% INJ 10 mL INJECTION (10:24)
--- NOTE | 2023-08-23 10:46 | PM.OP ---
Operative Report Date of procedure: August 23, 2023 Pre-op diagnosis: Symptomatic cholelithiasis Post-op diagnosis: Same Procedure done: Laparoscopic cholecystectomy Specimens removed/disposition: Gallbladder Surgeon: Isauro Wyatt MD Pharmacy Laboratory Technician: CHRISTIANO OR Staff Estimated blood loss: 10cc Complications: None Findings: Chronically inflamed gallbladder, short cystic duct with a stone impacted at the level of the duct. Brief History: This is a 27-year-old male with symptomatic cholelithiasis who presents for laparoscopic cholecystectomy after a discussion of all risks and benefits as documented in my preop note. Procedure: Patient was brought into the OR. Was placed in the supine position. General esthesia was given. The abdomen was prepped and draped in the usual sterile fashion. The abdomen was accessed via infraumbilical incision with open technique, Austin trocar was placed and fixed to the fascia with 0 Vicryl. Initial pneumoperitoneum show no evidence of visceral injury. Additional trocars were placed in the epigastric right upper quadrant and right flank positions. The gallbladder was retracted cephalad, peritoneum anterior to the hepatocystic triangle was opened, this opening was carried medial and lateral to the edges of the liver and then worse towards the edges of the gallbladder. Careful blunt dissection was done, the the cystic duct and artery were encircled and the lower third of the gallbladder was elevated from the liver bed obtaining a critical view of safety. The cystic artery was clipped and transected. The cystic duct was then milked with the use of a grasper to mobilize a stone that was lodged at this level. The stone was mobilized towards the gallbladder and then the dog was double clipped proximally 1 clip distal and transected. The gallbladder was removed from the liver bed using electrocautery. No evidence of bleeding or bile staining was noted on the gallbladder bed after excision. The specimen was retrieved. The umbilical trocar site in an Endo Catch bag. The umbilical trocar site was then closed with a 0 Vicryl using a Carlos-Aquiles under direct visualization. The epigastric trocar was then removed under direct visualization, remainder trocars were used to evacuate pneumoperitoneum and subsequently removed. The wounds were closed with #4 Monocryl for the skin sterile dressing was then applied. At the end of the procedure all counts were correct. The patient tolerated well the procedure and was transferred to the PACU in stable condition.
[2023-08-23] MEDS: fentaNYL 50 mcg/mL INJ 2mL IVP (11:10)
[2023-08-23] MEDS: oxyCODONE-APAP 5-325 mg Tablet 1 TAB PO (11:50)
--- NOTE | 2023-08-23 12:10 | ANE.PACU2 ---
Inpatient post-anesthesia follow up: Airway intact: Yes Vital signs: Temperature 97.8 F Pulse Rate 98 Respiratory Rate 16 Blood Pressure 144/102 Pulse Oximetry 94 Oxygen Delivery Me thod Room Air Oxygen Flow Rate 6 Fraction of Inspir ed Oxygen Hydration adequate: Yes Nausea and vomiting: No Pain level: 1 Mental status: Baseline
== END 2023-08-23 12:10 | disposition home or self-care (01) ==
PROVIDERS: PCP Nurse Practitioner Family; Visit Provider Surgery
PROC: 0FT44ZZ Resection of Gallbladder, Percutaneous Endoscopic Approach (ICD-10-PCS; CPT 47562; principal; 2023-08-23 08:35)
DX: K80.10 Calculus of gallbladder with chronic cholecystitis without obstruction (principal); F17.200 Nicotine dependence, unspecified, uncomplicated; K21.9 Gastro-esophageal reflux disease without esophagitis
CPT/HCPCS: 47562; 88304; J1100; J1170; J2250; J2405; J2704; J2710; J3010; J3370; J3490; J7030; J7050; P9045

== ENCOUNTER 2023-08-24 21:09 | Emergency (ER) | payer MEDICAID, SELFPAY ==
[2023-08-24 21:18] VITALS: BP 123/81; PULSE 90; RESP 18; TEMP 36.6; O2SAT 97
[2023-08-24 22:04] LABS: Basophils # 0.1 10^3/uL (0.0-0.1); Basophils % 0.7 %; Eosinophils # 0.2 10^3/uL (0.0-0.8); Eosinophils % 1.3 %; Hematocrit 47.5 % (37-53); Lymphocytes # 5.2 10^3/uL (0.8-4.8); Mean Corpuscular HGB Conc 33.3 g/dL (30-55); Mean Corpuscular Hemoglobin 28.8 pg (27-33); Mean Corpuscular Volume 86.7 fl (82-101); Mean Platelet Volume 9.2 fL (7.4-10.4); Monocytes # 0.9 10^3/uL (0.2-0.9); Monocytes % 6.2 %; Neutrophils # 7.67 10^3/uL (1.8-7.7); Neutrophils % 54.4 %; Nucleated Red Blood Cells % 0 %; Platelet Count 317 10^3/cmm (157-399); Red Blood Count 5.48 10^6/uL (3.85-5.65); Red Cell Distribution Width 13.8 % (12.1-15.1)
--- NOTE | 2023-08-24 22:23 | CTR_ITS ---
PROCEDURE INFORMATION: Exam: CT Abdomen And Pelvis With Contrast Exam date and time: 08/24/2023 11:06 PM Age: 27 years old Clinical indication: Abdominal pain; Periumbilical; Prior surgery; Surgery date: Post-operative (0-2 days); Surgery type: Gb; Additional info: Abd pain TECHNIQUE: Imaging protocol: Computed tomography of the abdomen and pelvis with contrast. Radiation optimization: All CT scans at this facility use at least one of these dose optimization techniques: automated exposure control; mA and/or kV adjustment per patient size (includes targeted exams where dose is matched to clinical indication); or iterative reconstruction. Contrast material: OMNI 350; Contrast volume: 100 ml; Contrast route: INTRAVENOUS (IV); REPORTING DATA: Count of CT and Cardiac NM exams in prior 12 months: This patient has received 2 known CTs and 0 known cardiac nuclear medicine studies in the 12 months prior to the current study. COMPARISON: US gall bladder [id number] 07/03/2023 6:13 AM RADIATION DOSE METRICS: Total DLP (mGy-cm): 1077.88 FINDINGS: Liver: Hepatic steatosis. Gallbladder and bile ducts: Cholecystectomy with minimal edema in the gallbladder fossa, likely postsurgical in nature, if concern for biliary leak exists consider further evaluation with a nuclear medicine HIDA scan. Pancreas: Normal. No ductal dilation. Spleen: Normal. No splenomegaly. Adrenal glands: Normal. No mass. Kidneys and ureters: Normal. No hydronephrosis. Stomach and bowel: Prominent fluid in the small bowel without dilation may reflect an enteritis. Diverticulosis without diverticulitis. Appendix: No evidence of appendicitis. Intraperitoneal space: Unremarkable. No free air. No significant fluid collection. Vasculature: Unremarkable. No abdominal aortic aneurysm. Lymph nodes: Unremarkable. No enlarged lymph nodes. Urinary bladder: Unremarkable as visualized. Reproductive: Unremarkable as visualized. Bones/joints: Unremarkable. No acute fracture. Soft tissues: Subcutaneous emphysema the periumbilical region, may be postsurgical in nature. CT/CT abdomen pelvis w con* [id number] IMPRESSION: 1. Cholecystectomy with minimal edema in the gallbladder fossa, likely postsurgical in nature, if concern for biliary leak exists consider further evaluation with a nuclear medicine HIDA scan. 2. Prominent fluid in the small bowel without dilation may reflect an enteritis. 3. Hepatic steatosis. 4. Diverticulosis without diverticulitis. 5. Subcutaneous emphysema the periumbilical region, may be postsurgical in nature.
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
[2023-08-24 22:25] LABS: Alanine Aminotransferase 59 U/L (0-41); Albumin Level 4.4 g/dL (3.5-5.2); Alkaline Phosphatase 72 U/L (40-130); Anion Gap 13.8 (5-19); Aspartate Amino Transferase 25 U/L (0-40); Blood Urea Nitrogen 9 mg/dL (6-20); Calcium 9.5 mg/dL (8.5-10.5); Carbon Dioxide 29 mmol/L (22-29); Chloride 101 mmol/L (98-107); Globulin 2.6 g/dL (1.3-4.6); Glomerular Filtration Rate 80.3 mL/min (90-130); Glucose 94 mg/dL (65-115); Lipase 45 U/L (13-60); Osmolality Calculated 288 mOsm/kg (285-295); Potassium 3.8 mmol/L (3.5-5.1); Sodium 140 mmol/L (136-145); Total Bilirubin 0.9 mg/dL (0.15-1.2)
[2023-08-24] MEDS: ondansetron 2 mg/ML SDV 2 mL 4 MG IVP (22:34)
[2023-08-24] MEDS: sodium chloride 0.9% 1,000 ML 999 ML IV (22:34)
[2023-08-24 22:38] VITALS: RESP 18; O2SAT 95
[2023-08-24] MEDS: HYDROmorphone 1 mg/mL INJ 1 mL IVP (22:38)
[2023-08-24 22:46] VITALS: BP 149/84; PULSE 78; O2SAT 98
[2023-08-24] MEDS: iohexol 350 mg/mL 500 mL Btl (per mL) IV (23:16)
== END 2023-08-24 23:45 | disposition home or self-care (01) ==
PROVIDERS: Emergency Provider Emergency Medicine; PCP Nurse Practitioner Family
DX: R10.33 Periumbilical pain (principal); K57.90 Diverticulosis of intestine, part unspecified, without perforation or abscess without bleeding; Z90.49 Acquired absence of other specified parts of digestive tract; Z72.0 Tobacco use
CPT/HCPCS: 36415; 74177; 80053; 83690; 85025; 96374; 96375; 99285; J1170; J2405; J7030; Q9967

== ENCOUNTER → 2023-11-17 10:02 | Outpatient (BNVA) | payer MEDICAID, SELFPAY | PROVIDERS: PCP Nurse Practitioner Family; Visit Provider Nurse Practitioner Family | DX: J02.9 Acute pharyngitis, unspecified (principal) | CPT/HCPCS: 87071; 87880 ==

== ENCOUNTER → 2024-01-01 11:12 | Outpatient (BNVA) | payer MEDICAID, SELFPAY | PROVIDERS: PCP Nurse Practitioner Family; Visit Provider Nurse Practitioner Family | DX: R05.9 Cough, unspecified (principal); R53.83 Other fatigue; R73.9 Hyperglycemia, unspecified | CPT/HCPCS: 80053; 82306; 82607; 83036; 83735; 84443; 85025; 87400; 87426 ==

== ENCOUNTER 2024-01-09 03:31 | Emergency (ER) | payer MEDICAID, SELFPAY ==
[2024-01-09 03:34] VITALS: BP 139/86; PULSE 99; RESP 16; TEMP 36.7; O2SAT 95; BMI 34.8
--- NOTE | 2024-01-09 03:35 | XRR_ITS ---
PROCEDURE INFORMATION: Exam: XR Chest Exam date and time: 01/09/2024 4:07 AM Age: 28 years old Clinical indication: Chest wall pain; Additional info: Cxp TECHNIQUE: Imaging protocol: Radiologic exam of the chest. Views: 1 view. COMPARISON: CR XR chest 1V portable [id number] 03/01/2023 2:22 PM FINDINGS: Lungs: Unremarkable. No consolidation. Pleural spaces: Unremarkable. No pleural effusion. No pneumothorax. Heart/Mediastinum: Unremarkable. No cardiomegaly. Bones/joints: Unremarkable. XR/XR chest 1V portable [id number] IMPRESSION: No acute findings.
--- NOTE | 2024-01-09 03:35 | ECG_ITS ---
[facility] Test Date: 2024-01-09 Pat Name: Adrián Bangura Department: Room: Gender: Male Bench Technician: : 1995 Requested By: Ghassan Richards Order Number: [id number] Rivera MD: Jung Mckeon M.D. Measurements Intervals [place] Rate: 96 P: 43 [place]: 192 QRS: -34 QRSD: 85 T: 46 QT: 313 QTc: 396 Interpretive Statements SINUS RHYTHM POSSIBLE LEFT ATRIAL ENLARGEMENT [-0.1mV P-WAVE IN V1/V2] LEFT AXIS DEVIATION [QRS AXIS < -30] Compared to ECG 03/01/2023 15:11:57 ST (T wave) deviation no longer present Early repolarization no longer present Electronically Signed On 01-09-2024 21:35:16 CDT by Jung Mckeon M.D. [id number]
[2024-01-09] MEDS: aspirin 81 mg Chew Tablet 324 MG PO (03:44)
[2024-01-09 03:45] LABS: Basophils # 0.1 10^3/uL (0.0-0.1); Basophils % 0.8 %; Eosinophils # 0.3 10^3/uL (0.0-0.8); Eosinophils % 2.4 %; Hematocrit 50.2 % (37-53); Lymphocytes # 4.8 10^3/uL (0.8-4.8); Lymphocytes % 34.3 %; Mean Corpuscular HGB Conc 34.5 g/dL (30-55); Mean Corpuscular Hemoglobin 29.1 pg (27-33); Mean Corpuscular Volume 84.4 fl (82-101); Mean Platelet Volume 8.8 fL (7.4-10.4); Monocytes # 0.8 10^3/uL (0.2-0.9); Monocytes % 5.4 %; Neutrophils # 7.91 10^3/uL (1.8-7.7); Neutrophils % 56.8 %; Nucleated Red Blood Cells % 0 %; Platelet Count 366 10^3/cmm (157-399); Red Blood Count 5.95 10^6/uL (3.85-5.65); Red Cell Distribution Width 13.1 % (12.1-15.1); White Blood Count 13.91 10^3/uL (3.29-11.43)
[2024-01-09] MEDS: ketorolac 30 mg/mL INJ IVP (03:55)
[2024-01-09 03:59] VITALS: BP 139/86; PULSE 91; RESP 19; O2SAT 93
[2024-01-09 04:03] LABS: Alanine Aminotransferase 37 U/L (0-41); Albumin Level 4.8 g/dL (3.5-5.2); Alkaline Phosphatase 91 U/L (40-130); Aspartate Amino Transferase 22 U/L (0-40); Blood Urea Nitrogen 8 mg/dL (6-20); Carbon Dioxide 29 mmol/L (22-29); Chloride 104 mmol/L (98-107); Creatinine Clr Calc Pharmacy 140.8388; Globulin 2.2 g/dL (1.3-4.6); Glucose 94 mg/dL (65-115); Osmolality Calculated 292 mOsm/kg (285-295); Sodium 142 mmol/L (136-145)
[2024-01-09 04:09] LABS: Troponin(5th) Baseline 10 ng/L (0-15)
--- NOTE | 2024-01-09 04:12 | W.ED.CHESTPA ---
HPI - Chest Pain General: Chief Complaint: Chest Pain Stated Complaint: CP Time Seen by Provider: 01/09/24 03:35 History of Present Illness: 28-year-old male presents emerged part with complaints of left sided chest pain that started yesterday at approximately 1500. He states that this started while he was sitting in his current pain is worse if he pushes on the left side of his chest. He denies shortness of breath dizziness or lightheaded feeling. He states the pain is worse if he pushes on the area. He denies recent muscle strain or lifting anything heavy. He denies shortness of breath or nausea. He states the pain currently is a 6 out of 10 and sharp if he pushes to the left side of his chest. Associated symptoms: Deny dyspnea or palpitations Review of Systems General: Reports: 10 or more systems reviewed and unremarkable except in HPI and below Card: Reports: chest pain; Denies: palpitations or edema Resp: Reports: non-productive cough; Denies: dyspnea [facility] ED PFSH: Medical History GERD (gastroesophageal reflux disease) No pertinent family history Surgical History No pertinent past surgical history Social History Smoking and tobacco/nicotine status: current every day tobacco/nicotine user Alcohol intake: never Physical Exam Narrative: EXAM NARRATIVE: Constitutional: the patient appears well nourished and of normal development. Vital signs as documented. No acute distress at present. Alert and oriented-to person, place, time and situation. Head, eyes, ears, nose, mouth, throat: Normocephalic, atraumatic. Pupils-equal, round, reactive to light. No scleral icterus. Normal-appearing external ears. Normal appearing nasal turbinates, no drainage. No obvious oral lesions, posterior oropharynx without erythema or exudates. Neck: Supple, trachea is midline, no lymphadenopathy, no jugular venous distension, thyromegaly, or carotid bruits. Carotid upstrokes are brisk bilaterally. Lungs: clear to auscultation to all lung haas. Symmetrical rise and fall of chest, no obvious signs of increased work of breathing at present. Cardiac: Regular rate and rhythm, positive S1, S2. No murmurs, rubs or gallops that I can appreciate Thorax: Anterior chest wall lateral to the sternum is tender to palpation to the sternal costal cartilage. Pain is reproducible upon palpation Abdomen: Soft, non-tender to palpation, normal active bowel sounds to all quadrants. No palpable masses, no organomegaly and abdominal bruits. Extremities: 2+ pulses in the upper extremities that are equal bilaterally, 2+ pulses in the lower extremities that are equal bilaterally. Non-edematous. Moves all extremities well, sensation to all extremities are noted. Skin: Warm, dry, intact. Course Vital Signs: Vital signs: Vital Signs Temperature 98.1 F 01/09/24 03:34 Pulse Rate 85 01/09/24 04:29 Respiratory Rate 18 01/09/24 04:29 Blood Pressure 123/71 01/09/24 04:29 Pulse Oximetry 95 01/09/24 04:29 Oxygen Delivery Me thod Room Air 01/09/24 03:34 MDM - Chest Pain Medical Decision Making Physical exam completed and documented, I will obtain a CBC and CMP cardiac enzymes twelve-lead EKG for evaluation. I have completed a chest x-ray and is without significant findings. Given the patient's reproducible pain I suspect this is most likely secondary to costochondritis. Differential diagnosis does include costochondritis, NSTEMI, musculoskeletal strain, Medical Records I reviewed the patient's medical records. Lab Data I reviewed the patient's lab results. 01/09/24 03:38 01/09/24 03:38 Radiology Impressions Chest X-Ray 01/09/24 03:35 IMPRESSION: No acute findings. Laboratory Results WBC 13.91 10^3/uL (3.29-11.43) H 01/09/24 03:38 RBC 5.95 10^6/uL (3.85-5.65) H 01/09/24 03:38 Hgb 17.30 g/dL (11.27-16.99) H 01/09/24 03:38 Hct 50.2 % (37-53) 01/09/24 03:38 MCV 84.4 fl (82-101) 01/09/24 03:38 MCH 29.1 pg (27-33) 01/09/24 03:38 MCHC 34.5 g/dL (30-55) 01/09/24 03:38 RDW 13.1 % (12.1-15.1) 01/09/24 03:38 Plt Count 366 10^3/cmm (157-399) 01/09/24 03:38 MPV 8.8 fL (7.4-10.4) 01/09/24 03:38 Neut % (Auto) 56.8 % 01/09/24 03:38 Lymph % (Auto) 34.3 % 01/09/24 03:38 [place] % (Auto) 5.4 % 01/09/24 03:38 Eos % (Auto) 2.4 % 01/09/24 03:38 Baso % (Auto) 0.8 % 01/09/24 03:38 Neut # (Auto) 7.91 10^3/uL (1.8-7.7) H 01/09/24 03:38 Lymph # (Auto) 4.8 10^3/uL (0.8-4.8) 01/09/24 03:38 [place] # (Auto) 0.8 10^3/uL (0.2-0.9) 01/09/24 03:38 Eos # (Auto) 0.3 10^3/uL (0.0-0.8) 01/09/24 03:38 Baso # (Auto) 0.1 10^3/uL (0.0-0.1) 01/09/24 03:38 Nucleated RBC % (auto) 0 % 01/09/24 03:38 Nucleated RBCs # 0.0 /100WBC 01/09/24 03:38 Sodium 142 mmol/L (136-145) 01/09/24 03:38 Potassium 4.0 mmol/L (3.5-5.1) 01/09/24 03:38 Chloride 104 mmol/L (98-107) 01/09/24 03:38 Carbon Dioxide 29 mmol/L (22-29) 01/09/24 03:38 Anion Gap 13.0 (5-19) 01/09/24 03:38 BUN 8 mg/dL (6-20) 01/09/24 03:38 Creatinine 1.0 mg/dL (0.7-1.2) 01/09/24 03:38 GFR Calculation 89.0 mL/min (90-130) L 01/09/24 03:38 Glucose 94 mg/dL (65-115) 01/09/24 03:38 Calculated Osmolality 292 mOsm/kg (285-295) 01/09/24 03:38 Calcium 10.0 mg/dL (8.5-10.5) 01/09/24 03:38 Total Bilirubin 1.0 mg/dL (0.15-1.2) 01/09/24 03:38 AST 22 U/L (0-40) 01/09/24 03:38 ALT 37 U/L (0-41) 01/09/24 03:38 Alkaline Phosphatase 91 U/L (40-130) 01/09/24 03:38 Troponin T Baseline 10 ng/L (0-15) 01/09/24 03:38 Total Protein 7.0 g/dL (6.6-8.7) 01/09/24 03:38 Albumin 4.8 g/dL (3.5-5.2) 01/09/24 03:38 Globulin 2.2 g/dL (1.3-4.6) 01/09/24 03:38 All radiology interpretation(s) finalized by discharge EKG Data EKG 1: Interpretation: Twelve-lead EKG obtained at 336 reviewed at 340 demonstrates sinus rhythm, ventricular rate 96, MI interval 192, QRS duration 85 QT 313 QTc [address] elevation or depression to demonstrate acute ischemia or infarction at present. Discharge Plan Discharge Patient Disposition: Home Clinical Impression: Atypical chest pain, Acute costochondritis Condition: Stable Prescriptions: New cyclobenzaprine 10 mg tablet 10 mg PO Q8H Qty: 14 0RF hydrocodone-acetaminophen 5-325 mg tablet 1 tab PO Q8H PRN (Reason: pain) Qty: 14 0RF prednisone 20 mg tablet 40 mg PO DAILY 5 Days Qty: 10 0RF naproxen 500 mg tablet 500 mg PO Q12H PRN (Reason: pain) Qty: 20 0RF No Action sumatriptan succinate [Imitrex] 100 mg tablet See Rx Instructions PO .COMPLEX Qty: 10 5RF Rx Instructions: take 1 tab at onset of headache; if no relief, may repeat 1 tab after at least 2 hrs; max = 2 tabs/24 hrs PO diclofenac sodium 75 mg tablet,delayed release (DR/EC) 75 mg PO BID PRN (Reason: pain) Qty: 60 2RF pantoprazole 40 mg tablet,delayed release (DR/EC) See Rx Instructions .ROUTE .COMPLEX Qty: 60 1RF Dose Instruction: Take 1 tablet by mouth twice daily Rx Instructions: Take 1 tablet by mouth twice daily ergocalciferol (vitamin D2) 1,250 mcg (50,000 unit) capsule 1,250 mcg PO .weekly Qty: 12 0RF Discharge Orders: Discharge ED (Routine); Ordered 01/09/24 Ordered By: Ghassan Richards Referrals: Sangeeta Kan FNP [Primary Care Provider] - Discharge Diet: Usual diet Discharge Activity: Resume usual activity Patient Instructions: Opioid Safety, Pain Management Activity Restrictions/Additional Instructions: Activity Restrictions/Additional Instructions: Thank you for choosing [facility] for your healthcare needs today. Please realize that you were seen in the Emergency Department and that we are providing you with an emergency medical screening exam and this may not be a complete and all inclusive of all the testing and or medical work-up that you may need to determine your ailment or severity of your illness. It is very important that you follow-up as instructed with your Primary care provider or Specialist for additional evaluation and to discuss your medical treatment plan. Coding Level of Care Code ED Registered Nurse Behavioral Health for Galilea Mcgill
[2024-01-09 04:13] VITALS: BP 108/71; PULSE 92; RESP 16; O2SAT 95
[2024-01-09 04:29] VITALS: BP 123/71; PULSE 85; RESP 18; O2SAT 95
== END 2024-01-09 04:31 | disposition home or self-care (01) ==
PROVIDERS: Emergency Provider Internal Medicine; PCP Nurse Practitioner Family
DX: R07.89 Other chest pain (principal); M94.0 Chondrocostal junction syndrome [Tietze]; Z72.0 Tobacco use
CPT/HCPCS: 71045; 80053; 84484; 85025; 93005; 96374; 99285; J1885

== ENCOUNTER 2024-02-17 00:14 | Emergency (ER) | payer MEDICAID, SELFPAY ==
[2024-02-17 00:20] VITALS: BP 146/106; PULSE 94; RESP 15; TEMP 36.6; O2SAT 97
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
--- NOTE | 2024-02-17 00:29 | XRR_ITS ---
PROCEDURE INFORMATION: Exam: XR Left Hand Exam date and time: 02/17/2024 12:34 AM Age: 28 years old Clinical indication: Injury or trauma; Other: Blunt trauma; Crushing; Patient HX: Patient was loading large broken panes of glass into a L dumpster and got hand and distal forearm impinged inbewteen a pane of glass and the lip of dumpster. C/O left hand and forearm pain. ; Additional info: Trauam abrasion swelling pain TECHNIQUE: Imaging protocol: Radiologic exam of the left hand. Views: 3 or more views. COMPARISON: CR (UP EXM, ) 02/17/2024 12:34 AM FINDINGS: Bones/joints: Normal mineralization and alignment. No evidence of acute fracture or dislocation. Soft tissues: The soft tissues are within normal limits. XR/XR hand LT min 3V* [id number] IMPRESSION: No evidence of acute fracture or dislocation.
--- NOTE | 2024-02-17 00:30 | ECG_ITS ---
[facility] Test Date: 2024-02-17 Pat Name: Adrián Bangura Department: Room: Gender: Male Director Funds Development: : 1995 Requested By: Crow Marinelli Order Number: [id number] Rivera MD: Liat Gonzales M.D. Measurements Intervals [place] Rate: 86 P: 7 SD: 210 QRS: -32 QRSD: 94 T: 30 QT: 336 QTc: 404 Interpretive Statements SINUS RHYTHM WITH FIRST DEGREE AV BLOCK LEFT AXIS DEVIATION [QRS AXIS < -30] PATTERN CONSISTENT WITH PULMONARY DISEASE EARLY REPOLARIZATION [ST ELEVATION WITH NORMALLY INFLECTED T-WAVE] Compared to ECG 01/09/2024 03:36:22 First degree AV block now present Early repolarization now present Electronically Signed On 02-17-2024 19:29:32 CDT by Liat Gonzales M.D. [id number]
--- NOTE | 2024-02-17 00:30 | W.ED.EXTPRO ---
HPI - Extremity Problem General: Chief complaint: Extremity Injury, Upper Stated complaint: Left hand/Arm pain Time Seen by Provider: 02/17/24 00:27 History of Present Illness: Patient comes in tonight with complaints of left hand pain. Patient says he was breaking glass with his brother about a week ago or [place]ashing [place]. And his brother smashed his hand in between the pain and glass in the dumpster. Patient has an abrasion on the dorsum of his hand his hand is swollen and tender as well as penitentiary up his forearm. There is no redness or streaking noted. Patient denies any fever or chills Review of Systems General: Reports: 10 or more systems reviewed and unremarkable except in HPI and below PFSH ED PFSH: Medical History GERD (gastroesophageal reflux disease) No pertinent family history Surgical History No pertinent past surgical history Social History Smoking and tobacco/nicotine status: current every day tobacco/nicotine user Alcohol intake: never Physical Exam Const: COMMON NORMALS: no acute distress, average body habitus, patient oriented x3, no limitations, healthy appearing, alert and well nourished HENMT: COMMON NORMALS: normocephalic, atraumatic, hearing grossly normal bilaterally, external ears normal, Normal external nose present, moist oral mucous membranes and oropharynx normal HEAD & SCALP: normocephalic and atraumatic NOSE: Normal external nose present EXTERNAL EAR: Yes external ears normal Neck/C-Spine: COMMON NORMALS: no JVD Chest: COMMONS NORMALS: normal inspection of the chest and normal palpation of entire chest wall Resp: COMMON NORMALS: normal respiratory effort, No retractions, No use of accessory muscles and clear to auscultation bilaterally AUSCULTATION: clear to auscultation bilaterally Cardio: COMMON NORMALS: no JVD, regular rate, regular rhythm, S1 normal heart sound present, S2 normal heart sound present, No gallops present (Cardio), No clicks present (Cardio), No murmurs present (Cardio) and No rub (Cardio) RATE: regular rate RHYTHM: regular rhythm HEART SOUNDS: S1 normal heart sound present and S2 normal heart sound present GI: COMMON NORMALS: Normal to inspection, nondistended, normoactive bowel sounds present, Soft to palpation, non-tender, No hepatosplenomegaly present and no masses PALPATION: Yes Soft to palpation and Yes No hepatosplenomegaly present Extremity: NARRATIVE EXTREMITY EXAM: Abrasion to the dorsal side of the left hand, swelling noted to the entire hand wrist and penitentiary up the forearm. There is no erythema no streaking no discharge. This area is tender to palpate. Neuro: COMMON NORMALS: patient oriented x3 SENSORIUM/ORIENTATION: Yes alert Course Vital Signs: Vital signs: Vital Signs Temperature 97.9 F 02/17/24 00:20 Pulse Rate 94 02/17/24 00:20 Respiratory Rate 15 02/17/24 00:20 Blood Pressure 146/106 02/17/24 00:20 Pulse Oximetry 97 02/17/24 00:20 Oxygen Delivery Me thod Room Air 02/17/24 00:20 MDM - Extremity (Nontraumatic) Medical Decision Making X-rays were read off as negative. Lab work come back benign except for mildly elevated white count. Patient be treated with Bactrim here and prescription sent to his pharmacy. Patient to follow-up with his PCP in approximately 7 days. Lab Data 02/17/24 01:03 02/17/24 01:03 Radiology Impressions Forearm X-Ray 02/17/24 00:29 IMPRESSION: No evidence of acute fracture or dislocation. Hand X-Ray 02/17/24 00:29 IMPRESSION: No evidence of acute fracture or dislocation. Laboratory Results WBC 13.43 10^3/uL (3.29-11.43) H 02/17/24 01:03 RBC 5.56 10^6/uL (3.85-5.65) 02/17/24 01:03 Hgb 15.80 g/dL (11.27-16.99) 02/17/24 01:03 Hct 47.4 % (37-53) 02/17/24 01:03 MCV 85.3 fl (82-101) 02/17/24 01:03 MCH 28.4 pg (27-33) 02/17/24 01:03 MCHC 33.3 g/dL (30-55) 02/17/24 01:03 RDW 13.6 % (12.1-15.1) 02/17/24 01:03 Plt Count 328 10^3/cmm (157-399) 02/17/24 01:03 MPV 9.2 fL (7.4-10.4) 02/17/24 01:03 Neut % (Auto) 58.1 % 02/17/24 01:03 Lymph % (Auto) 32.1 % 02/17/24 01:03 [place] % (Auto) 6.3 % 02/17/24 01:03 Eos % (Auto) 2.3 % 02/17/24 01:03 Baso % (Auto) 0.7 % 02/17/24 01:03 Neut # (Auto) 7.81 10^3/uL (1.8-7.7) H 02/17/24 01:03 Lymph # (Auto) 4.3 10^3/uL (0.8-4.8) 02/17/24 01:03 [place] # (Auto) 0.8 10^3/uL (0.2-0.9) 02/17/24 01:03 Eos # (Auto) 0.3 10^3/uL (0.0-0.8) 02/17/24 01:03 Baso # (Auto) 0.1 10^3/uL (0.0-0.1) 02/17/24 01:03 Nucleated RBC % (auto) 0 % 02/17/24 01:03 Nucleated RBCs # 0.0 /100WBC 02/17/24 01:03 Sodium 140 mmol/L (136-145) 02/17/24 01:03 Potassium 3.8 mmol/L (3.5-5.1) 02/17/24 01:03 Chloride 103 mmol/L (98-107) 02/17/24 01:03 Carbon Dioxide 26 mmol/L (22-29) 02/17/24 01:03 Anion Gap 14.8 (5-19) 02/17/24 01:03 BUN 9 mg/dL (6-20) 02/17/24 01:03 Creatinine 0.9 mg/dL (0.7-1.2) 02/17/24 01:03 GFR Calculation 100.5 mL/min (90-130) 02/17/24 01:03 Glucose 94 mg/dL (65-115) 02/17/24 01:03 Calculated Osmolality 288 mOsm/kg (285-295) 02/17/24 01:03 Calcium 9.6 mg/dL (8.5-10.5) 02/17/24 01:03 Total Bilirubin 0.6 mg/dL (0.15-1.2) 02/17/24 01:03 AST 19 U/L (0-40) 02/17/24 01:03 ALT 30 U/L (0-41) 02/17/24 01:03 Alkaline Phosphatase 72 U/L (40-130) 02/17/24 01:03 Total Protein 7.1 g/dL (6.6-8.7) 02/17/24 01:03 Albumin 4.3 g/dL (3.5-5.2) 02/17/24 01:03 Globulin 2.8 g/dL (1.3-4.6) 02/17/24 01:03 All radiology interpretation(s) finalized by discharge Discharge Plan Discharge Patient Disposition: Home Clinical Impression: Cellulitis of dorsum of hand Condition: Stable Prescriptions: New Bactrim DS 800-160 mg tablet 1 tab PO BID Qty: 14 0RF No Action sumatriptan succinate [Imitrex] 100 mg tablet See Rx Instructions PO .COMPLEX Qty: 10 5RF Rx Instructions: take 1 tab at onset of headache; if no relief, may repeat 1 tab after at least 2 hrs; max = 2 tabs/24 hrs PO diclofenac sodium 75 mg tablet,delayed release (DR/EC) 75 mg PO BID PRN (Reason: pain) Qty: 60 2RF pantoprazole 40 mg tablet,delayed release (DR/EC) See Rx Instructions .ROUTE .COMPLEX Qty: 60 1RF Dose Instruction: Take 1 tablet by mouth twice daily Rx Instructions: Take 1 tablet by mouth twice daily ergocalciferol (vitamin D2) 1,250 mcg (50,000 unit) capsule 1,250 mcg PO .weekly Qty: 12 0RF cyclobenzaprine 10 mg tablet 10 mg PO Q8H Qty: 14 0RF hydrocodone-acetaminophen 5-325 mg tablet 1 tab PO Q8H PRN (Reason: pain) Qty: 14 0RF naproxen 500 mg tablet 500 mg PO Q12H PRN (Reason: pain) Qty: 20 0RF Discharge Orders: Discharge ED (Routine); Ordered 02/17/24 Ordered By: Crow Marinelli Referrals: Sangeeta Kan FNP [Primary Care Provider] - 1 week Patient Instructions: Cellulitis (ED) Activity Restrictions/Additional Instructions: Your x-rays were negative and your lab work only showed you have a very mildly elevated white count. This is induces a possible infection. Please take your antibiotic as directed. Please follow-up with your family practice doctor within 7 days for further evaluation and treatment. Coding Level of Care Code ED Parts Representative for Galilea Mcgill
[2024-02-17 01:08] LABS: Basophils # 0.1 10^3/uL (0.0-0.1); Basophils % 0.7 %; Eosinophils # 0.3 10^3/uL (0.0-0.8); Eosinophils % 2.3 %; Hematocrit 47.4 % (37-53); Lymphocytes # 4.3 10^3/uL (0.8-4.8); Lymphocytes % 32.1 %; Mean Corpuscular HGB Conc 33.3 g/dL (30-55); Mean Corpuscular Hemoglobin 28.4 pg (27-33); Mean Corpuscular Volume 85.3 fl (82-101); Mean Platelet Volume 9.2 fL (7.4-10.4); Monocytes # 0.8 10^3/uL (0.2-0.9); Monocytes % 6.3 %; Neutrophils # 7.81 10^3/uL (1.8-7.7); Neutrophils % 58.1 %; Nucleated Red Blood Cells % 0 %; Platelet Count 328 10^3/cmm (157-399); Red Blood Count 5.56 10^6/uL (3.85-5.65); Red Cell Distribution Width 13.6 % (12.1-15.1); White Blood Count 13.43 10^3/uL (3.29-11.43)
[2024-02-17 01:25] LABS: Alanine Aminotransferase 30 U/L (0-41); Albumin Level 4.3 g/dL (3.5-5.2); Alkaline Phosphatase 72 U/L (40-130); Anion Gap 14.8 (5-19); Aspartate Amino Transferase 19 U/L (0-40); Blood Urea Nitrogen 9 mg/dL (6-20); Calcium 9.6 mg/dL (8.5-10.5); Carbon Dioxide 26 mmol/L (22-29); Chloride 103 mmol/L (98-107); Creatinine Clr Calc Pharmacy 154.9195; Globulin 2.8 g/dL (1.3-4.6); Glomerular Filtration Rate 100.5 mL/min (90-130); Glucose 94 mg/dL (65-115); Osmolality Calculated 288 mOsm/kg (285-295); Potassium 3.8 mmol/L (3.5-5.1); Sodium 140 mmol/L (136-145); Total Bilirubin 0.6 mg/dL (0.15-1.2); Total Protein 7.1 g/dL (6.6-8.7)
[2024-02-17] MEDS: sulfamethoxazole-trimeth DS 160-800 mg Tablet 1 TAB PO (01:59)
== END 2024-02-17 02:04 | disposition home or self-care (01) ==
PROVIDERS: Emergency Provider Emergency Medicine; PCP Nurse Practitioner Family
DX: L03.113 Cellulitis of right upper limb (principal); Z72.0 Tobacco use
CPT/HCPCS: 73090; 73130; 80053; 85025; 93005; 99285

== ENCOUNTER 2024-03-07 14:21 | Emergency (ER) | payer OTHER, SELFPAY ==
[2024-03-07 14:28] VITALS: BP 131/88; PULSE 88; RESP 18; TEMP 36.6; O2SAT 96
[2024-03-07 14:32] VITALS: BP 139/89; PULSE 83; RESP 18; O2SAT 96
--- NOTE | 2024-03-07 14:37 | W.ED.HEATRA ---
HPI - Head Injury General: Chief complaint: Head Injury Stated complaint: Hit head on conveyor belt Time Seen by Provider: 03/07/24 14:34 History of Present Illness: 28-year-old male patient was at work when he hit himself against a conveyor belt on the left side. Patient reports headache, loss of vision in the left eye which is returned, and tenderness to the scalp. Patient is slow to respond to questions. Patient moves all extremities well. No open injury is noted. Tenderness is noted to the scalp. Review of Systems General: Reports: 10 or more systems reviewed and unremarkable except in HPI and below PFSH ED PFS: Medical History GERD (gastroesophageal reflux disease) No pertinent family history Surgical History No pertinent past surgical history Social History Smoking and tobacco/nicotine status: current every day tobacco/nicotine user Alcohol intake: never Physical Exam Const: COMMON NORMALS: alert HENMT: HEAD & SCALP: contusion (Tenderness left frontal linear mild redness); no palpable skull fracture Neck/C-Spine: COMMON NORMALS: full ROM Resp: COMMON NORMALS: normal respiratory effort Cardio: COMMON NORMALS: regular rate RATE: regular rate GI: COMMON NORMALS: Soft to palpation PALPATION: Yes Soft to palpation Back/Pelvis: COMMON NORMALS: thoracic and lumbar spine normal to inspection Extremity: COMMON NORMALS: full ROM Neuro: SENSORIUM/ORIENTATION: Yes alert Skin: COMMON NORMALS: turgor normal GENERAL SKIN EXAM: turgor normal Course Vital Signs: Vital signs: Vital Signs Temperature 97.9 F 03/07/24 14:28 Pulse Rate 83 03/07/24 14:32 Respiratory Rate 18 03/07/24 14:32 Blood Pressure 139/89 03/07/24 14:32 Pulse Oximetry 96 03/07/24 14:32 Oxygen Delivery Me thod Room Air 03/07/24 14:32 MDM - Head Injury Medcial Decision Making Patient comes in today for complaints of pain and discomfort to the head after hitting his head against a conveyor belt. Patient reports no loss of consciousness but has a severe headache and loss of vision in his left eye for a short time. Patient appears nontoxic. Patient appears in no acute distress. Pupils are equal and reactive. Bilateral TMs are normal. Patient moves neck without difficulty. Differential diagnosis includes skull fracture, intracranial bleeding, concussion, malingering. CT scan noted no acute abnormalities. Patient's drug screen was negative. Employer requested the drug screen. Reviewed exam with patient recommended activity as tolerated. Encourage plenty of fluids and Tylenol and ibuprofen for pain. Recommend follow-up with primary care or return to ED for new concerns. Lab Data Radiology Impressions Head CT 03/07/24 14:40 IMPRESSION: 1. No evidence of intracranial hemorrhage or mass effect. 2. Stable Chiari I malformation. Laboratory Results Urine Opiates Screen Negative ng/mL (Negative) 03/07/24 15:08 Ur Barbiturates Screen Negative ng/mL (Negative) 03/07/24 15:08 Ur Phencyclidine Scrn Negative ng/mL (Negative) 03/07/24 15:08 Ur Amphetamines Screen Negative ng/mL (Negative) 03/07/24 15:08 U Benzodiazepines Scrn Negative ng/mL (Negative) 03/07/24 15:08 Urine Cocaine Screen Negative ng/mL (Negative) 03/07/24 15:08 U Marijuana (THC) Screen Negative ng/mL (Negative) 03/07/24 15:08 All radiology interpretation(s) finalized by discharge Discharge Plan Discharge Patient Disposition: Home Clinical Impression: Closed head injury Qualifiers: Encounter type: initial encounter Qualified Code(s): S09.90XA - Unspecified injury of head, initial encounter Condition: Stable Prescriptions: No Action cefdinir 300 mg capsule 300 mg PO BID 10 Days Qty: 20 0RF ergocalciferol (vitamin D2) 1,250 mcg (50,000 unit) capsule 1,250 mcg PO .weekly Qty: 12 0RF ibuprofen 200 mg Tablet 200 mg PO Q6H PRN (Reason: Pain) Pepto-Bismol 262 mg Tablet,Chewable 2 tab PO Q1H PRN (Reason: Indigestion) Rx Instructions: do not exceed 16 tabs per 24 hrs Discharge Orders: Discharge ED (Routine); Ordered 03/07/24 Ordered By: Karel Farooq Referrals: Sangeeta Kan FNP [Primary Care Provider] - Discharge Diet: Usual diet Discharge Activity: Increase activity as tolerated Patient Instructions: Concussion (ED) Activity Restrictions/Additional Instructions: Home and rest. Drink plenty of water and fluids. Use acetaminophen or ibuprofen as needed for headache. Follow-up with primary care in 2 to 3 days, or Workmen's Comp. specialist for further evaluation and treatment. Return to ER for new concerns. Stand Alone Forms: Work/School Release Coding Level of Care Code ED Dock Operator for Galilea Mcgill
--- NOTE | 2024-03-07 14:40 | CT_ITS ---
WS: [id number] CT HEAD TECHNIQUE: Noncontrast CT of the head obtained from the skullbase to the vertex. CLINICAL INFORMATION: head injury COMPARISON: CT head 02/03/2023 DLP: 1320.[address] scans at [facility] use at least one of these dose optimization techniques: automated e xposure control; mA and/or kV adjustment per patient size (includes targeted exams where dose is matc hed to clinical indication); or iterative reconstruction. FINDINGS: No evidence of intracranial hemorrhage or mass effect. Ventricular system and basal cisterns are jimenez nt. Benign basal ganglia calcifications. No extra-axial fluid collections. No evidence of mass or mas s effect. Paranasal sinuses and mastoid air cells are well aerated. .Normal visualized soft tissues. Stable Chi cristin I malformation CT/CT head wo con* [id number] IMPRESSION: 1. No evidence of intracranial hemorrhage or mass effect. 2. Stable Chiari I malformation.
[2024-03-07 15:26] LABS: Amphetamines Screen Urine Negative (Negative); Barbiturates Screen Urine Negative (Negative); Benzodiazepines Screen Urine Negative (Negative); Cocaine Screen Urine Negative (Negative); Opiate Screen Urine Negative (Negative); PCP Screen Urine Negative (Negative); THC Screen Urine Negative (Negative)
== END 2024-03-07 15:57 | disposition home or self-care (01) ==
PROVIDERS: Emergency Provider Nurse Practitioner Family; PCP Nurse Practitioner Family
DX: S09.90XA Unspecified injury of head, initial encounter (principal); W22.09XA Striking against other stationary object, initial encounter; Y99.0 Civilian activity done for income or pay
CPT/HCPCS: 70450; 80306; 99284

== ENCOUNTER → 2024-04-01 16:37 | Outpatient (BNVA) | payer MEDICAID, SELFPAY | PROVIDERS: PCP Nurse Practitioner Family; Visit Provider Nurse Practitioner Family | DX: R07.9 Chest pain, unspecified (principal); E55.9 Vitamin D deficiency, unspecified; Z90.49 Acquired absence of other specified parts of digestive tract; R10.32 Left lower quadrant pain | CPT/HCPCS: 80053; 80061; 82306; 82607; 85025 ==

== ENCOUNTER 2024-04-02 18:08 | Emergency (ER) | payer MEDICAID, SELFPAY ==
[2024-04-02 18:22] VITALS: BP 131/83; PULSE 90; RESP 14; TEMP 36.8; O2SAT 96
--- NOTE | 2024-04-02 18:32 | ECG_ITS ---
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 Measurements Intervals [place] Rate: 95 P: 38 NV: 186 QRS: -36 QRSD: 96 T: 40 QT: 320 QTc: 404 Interpretive Statements SINUS RHYTHM POSSIBLE LEFT ATRIAL ENLARGEMENT [-0.1mV P-WAVE IN V1/V2] LEFT AXIS DEVIATION [QRS AXIS < -30] S1-S2-S3 PATTERN, CONSISTENT WITH PULMONARY DISEASE, RVH, OR NORMAL VARIANT PATTERN CONSISTENT WITH PULMONARY DISEASE POSSIBLE RIGHT VENTRICULAR CONDUCTION DELAY [RSR (QR) IN V1/V2] EARLY REPOLARIZATION [ST ELEVATION WITH NORMALLY INFLECTED T-WAVE] Compared to ECG 02/17/2024 00:23:41 Right ventricular hypertrophy now present First degree AV block no longer present Electronically Signed On 04-03-2024 10:32:24 CDT by Jung Mckeon M.D. [id number]
--- NOTE | 2024-04-02 18:33 | XRR_ITS ---
PROCEDURE INFORMATION: Exam: XR Chest Exam date and time: 04/02/2024 6:42 PM Age: 28 years old Clinical indication: Other: Weakness TECHNIQUE: Imaging protocol: Radiologic exam of the chest. Views: 1 view. COMPARISON: CR XR chest 1V portable [id number] 01/09/2024 4:07 AM FINDINGS: Lungs: There is mild reticulonodular opacity in the mid to lower lungs bilaterally. There is no focal consolidation. Pleural spaces: There is no pleural effusion or pneumothorax. Heart/Mediastinum: Cardiomediastinal contours are unremarkable. Bones/joints: Bones are unremarkable. XR/XR chest 1V portable [id number] IMPRESSION: Mild lower predominant reticulonodular opacity bilaterally. Possible infectious bronchiolitis.
--- NOTE | 2024-04-02 18:53 | PC.NURSE ---
taken over care of pt at this time from nurse emery
[2024-04-02 19:02] VITALS: PULSE 87; O2SAT 94
[2024-04-02 19:12] LABS: Basophils # 0.1 10^3/uL (0.0-0.1); Basophils % 0.7 %; Eosinophils # 0.2 10^3/uL (0.0-0.8); Eosinophils % 1.4 %; Hematocrit 45.8 % (37-53); Lymphocytes # 4.1 10^3/uL (0.8-4.8); Lymphocytes % 30.7 %; Mean Corpuscular HGB Conc 33.8 g/dL (30-55); Mean Corpuscular Hemoglobin 28.9 pg (27-33); Mean Corpuscular Volume 85.4 fl (82-101); Mean Platelet Volume 9.4 fL (7.4-10.4); Monocytes # 0.7 10^3/uL (0.2-0.9); Monocytes % 5.3 %; Neutrophils # 8.19 10^3/uL (1.8-7.7); Neutrophils % 61.4 %; Nucleated Red Blood Cells % 0 %; Platelet Count 348 10^3/cmm (157-399); Red Blood Count 5.36 10^6/uL (3.85-5.65); Red Cell Distribution Width 13.9 % (12.1-15.1); White Blood Count 13.33 10^3/uL (3.29-11.43)
[2024-04-02] MEDS: sodium chloride 0.9% 1,000 ML 999 ML IV ×2 (19:20→19:39)
--- NOTE | 2024-04-02 19:27 | W.ED.WEAKNES ---
HPI - Weakness General: Chief complaint: Weakness Stated complaint: Possible Dehydrated Time Seen by Provider: 04/02/24 18:34 History of Present Illness: Patient presents to the ER because he feels dehydrated. He states when he drinks water it makes him sick to his stomach. Patient reports nausea and not feeling well. Patient also reports left-sided chest pain that radiates down to his arm. This all started when he lifted a 40 pound bag of charcoal. Patient is pain-free currently. Review of Systems General: Reports: 10 or more systems reviewed and unremarkable except in HPI and below PFSH ED PFSH: Medical History GERD (gastroesophageal reflux disease) No pertinent family history Surgical History Hx laparoscopic cholecystectomy 08/23/23 Dr Wyatt No pertinent past surgical history Social History Smoking and tobacco/nicotine status: current every day tobacco/nicotine user Alcohol intake: never Physical Exam Const: COMMON NORMALS: no acute distress, average body habitus, patient oriented x3, no limitations, healthy appearing, alert and well nourished HENMT: COMMON NORMALS: normocephalic, atraumatic, hearing grossly normal bilaterally, external ears normal, Normal external nose present and moist oral mucous membranes HEAD & SCALP: normocephalic and atraumatic NOSE: Normal external nose present EXTERNAL EAR: Yes external ears normal Neck/C-Spine: COMMON NORMALS: no JVD Chest: COMMONS NORMALS: normal inspection of the chest and normal palpation of entire chest wall Resp: COMMON NORMALS: normal respiratory effort, No retractions, No use of accessory muscles and clear to auscultation bilaterally AUSCULTATION: clear to auscultation bilaterally Cardio: COMMON NORMALS: no JVD, regular rate, regular rhythm, S1 normal heart sound present, S2 normal heart sound present, No gallops present (Cardio), No clicks present (Cardio) and No murmurs present (Cardio) RATE: regular rate RHYTHM: regular rhythm HEART SOUNDS: S1 normal heart sound present and S2 normal heart sound present GI: COMMON NORMALS: Normal to inspection, nondistended, normoactive bowel sounds present, Soft to palpation, non-tender, No hepatosplenomegaly present and no masses PALPATION: Yes Soft to palpation and Yes No hepatosplenomegaly present Neuro: COMMON NORMALS: patient oriented x3 SENSORIUM/ORIENTATION: Yes alert Course Vital Signs: Vital signs: Vital Signs Temperature 98.2 F 04/02/24 18:22 Pulse Rate 79 04/02/24 20:00 Respiratory Rate 14 04/02/24 18:22 Blood Pressure 131/83 04/02/24 18:22 Pulse Oximetry 98 04/02/24 20:00 Oxygen Delivery Me thod Room Air 04/02/24 20:00 MDM - Weakness Medical Decision Making Physical exam was performed lab work was obtained as well as chest x-ray, all of essentially was normal or benign. Patient was given 2 L normal saline and 4 mg Zofran patient is feeling better. Patient be discharged home. Differential Diagnosis Unlikely acute myocardial infarction, anemia, hypoglycemia, hypothyroidism, rhabdomyolysis, sepsis or dehydration Medical Records I reviewed the patient's medical records. Lab Data I reviewed the patient's lab results. 04/02/24 18:47 04/02/24 18:47 Radiology Impressions Chest X-Ray 04/02/24 18:33 IMPRESSION: Mild lower predominant reticulonodular opacity bilaterally. Possible infectious bronchiolitis. Laboratory Results WBC 13.33 10^3/uL (3.29-11.43) H 04/02/24 18:47 RBC 5.36 10^6/uL (3.85-5.65) 04/02/24 18:47 Hgb 15.50 g/dL (11.27-16.99) 04/02/24 18:47 Hct 45.8 % (37-53) 04/02/24 18:47 MCV 85.4 fl (82-101) 04/02/24 18:47 MCH 28.9 pg (27-33) 04/02/24 18:47 MCHC 33.8 g/dL (30-55) 04/02/24 18:47 RDW 13.9 % (12.1-15.1) 04/02/24 18:47 Plt Count 348 10^3/cmm (157-399) 04/02/24 18:47 MPV 9.4 fL (7.4-10.4) 04/02/24 18:47 Neut % (Auto) 61.4 % 04/02/24 18:47 Lymph % (Auto) 30.7 % 04/02/24 18:47 [place] % (Auto) 5.3 % 04/02/24 18:47 Eos % (Auto) 1.4 % 04/02/24 18:47 Baso % (Auto) 0.7 % 04/02/24 18:47 Neut # (Auto) 8.19 10^3/uL (1.8-7.7) H 04/02/24 18:47 Lymph # (Auto) 4.1 10^3/uL (0.8-4.8) 04/02/24 18:47 [place] # (Auto) 0.7 10^3/uL (0.2-0.9) 04/02/24 18:47 Eos # (Auto) 0.2 10^3/uL (0.0-0.8) 04/02/24 18:47 Baso # (Auto) 0.1 10^3/uL (0.0-0.1) 04/02/24 18:47 Nucleated RBC % (auto) 0 % 04/02/24 18:47 Nucleated RBCs # 0.0 /100WBC 04/02/24 18:47 Sodium 137 mmol/L (136-145) 04/02/24 18:47 Potassium 3.7 mmol/L (3.5-5.1) 04/02/24 18:47 Chloride 101 mmol/L (98-107) 04/02/24 18:47 Carbon Dioxide 24 mmol/L (22-29) 04/02/24 18:47 Anion Gap 15.7 (5-19) 04/02/24 18:47 BUN 10 mg/dL (6-20) 04/02/24 18:47 Creatinine 0.9 mg/dL (0.7-1.2) 04/02/24 18:47 GFR Calculation 100.5 mL/min (90-130) 04/02/24 18:47 Glucose 81 mg/dL (65-115) 04/02/24 18:47 Calculated Osmolality 282 mOsm/kg (285-295) L 04/02/24 18:47 Calcium 9.3 mg/dL (8.5-10.5) 04/02/24 18:47 Magnesium 1.9 mg/dL (1.7-2.3) 04/02/24 18:47 Total Bilirubin 0.6 mg/dL (0.15-1.2) 04/02/24 18:47 AST 19 U/L (0-40) 04/02/24 18:47 ALT 20 U/L (0-41) 04/02/24 18:47 Alkaline Phosphatase 72 U/L (40-130) 04/02/24 18:47 Total Protein 7.0 g/dL (6.6-8.7) 04/02/24 18:47 Albumin 4.3 g/dL (3.5-5.2) 04/02/24 18:47 Globulin 2.7 g/dL (1.3-4.6) 04/02/24 18:47 TSH 1.49 uIU/mL (0.27-4.20) 04/02/24 18:47 Urine Color Yellow (Yellow) 04/02/24 20:00 Urine Appearance Clear (CLEAR) 04/02/24 20:00 Urine pH 5 (5-7) 04/02/24 20:00 Ur Specific [place] 1.020 (1.005-1.030) 04/02/24 20:00 Urine Protein Neg (Negative) 04/02/24 20:00 Urine Glucose (UA) Norm (Normal) 04/02/24 20:00 Urine Ketones 1+ (Negative) H 04/02/24 20:00 Urine Blood Neg (Negative) 04/02/24 20:00 Urine Nitrate Negative (Negative) 04/02/24 20:00 Urine Bilirubin Neg (Negative) 04/02/24 20:00 Urine Urobilinogen Norm mg/dL (Negative) 04/02/24 20:00 Ur Leukocyte Esterase Negative (Negative) 04/02/24 20:00 All radiology interpretation(s) finalized by discharge Discharge Plan Discharge Patient Disposition: Home Clinical Impression: Nausea & vomiting Qualifiers: Vomiting type: unspecified Qualified Code(s): R11.2 - Nausea with vomiting, unspecified Condition: Stable Prescriptions: No Action cefdinir 300 mg capsule 300 mg PO BID 10 Days Qty: 20 0RF ergocalciferol (vitamin D2) 1,250 mcg (50,000 unit) capsule See Rx Instructions .ROUTE .COMPLEX Qty: 12 0RF Dose Instruction: Take 1 capsule by mouth once a week Rx Instructions: Take 1 capsule by mouth once a week ibuprofen 200 mg Tablet 200 mg PO Q6H PRN (Reason: Pain) Pepto-Bismol 262 mg Tablet,Chewable 2 tab PO Q1H PRN (Reason: Indigestion) Rx Instructions: do not exceed 16 tabs per 24 hrs Discharge Orders: Discharge ED (Routine); Ordered 04/02/24 Ordered By: Crow Marinelli Referrals: Sangeeta Kan FNP [Primary Care Provider] - 1 week Patient Instructions: Acute Nausea and Vomiting (ED) Activity Restrictions/Additional Instructions: Your evaluation in ER did not show any acute causes of your nausea vomiting. You are given normal saline and Zofran and your IV. Please follow-up with your family practice doctor within next 7 days for further evaluation and treatment as needed. Coding Level of Care Code ED Cut Lace Machine Operator for Galilea Mcgill
[2024-04-02 19:30] LABS: Alanine Aminotransferase 20 U/L (0-41); Albumin Level 4.3 g/dL (3.5-5.2); Alkaline Phosphatase 72 U/L (40-130); Anion Gap 15.7 (5-19); Aspartate Amino Transferase 19 U/L (0-40); Blood Urea Nitrogen 10 mg/dL (6-20); Calcium 9.3 mg/dL (8.5-10.5); Carbon Dioxide 24 mmol/L (22-29); Chloride 101 mmol/L (98-107); Creatinine Clr Calc Pharmacy 155.8604; Globulin 2.7 g/dL (1.3-4.6); Glomerular Filtration Rate 100.5 mL/min (90-130); Glucose 81 mg/dL (65-115); Magnesium 1.9 mg/dL (1.7-2.3); Osmolality Calculated 282 mOsm/kg (285-295); Potassium 3.7 mmol/L (3.5-5.1); Sodium 137 mmol/L (136-145); Thyroid Stimulating Hormone 1.49 uIU/mL (0.27-4.20); Total Bilirubin 0.6 mg/dL (0.15-1.2)
[2024-04-02 19:32] VITALS: PULSE 79; O2SAT 96
[2024-04-02 20:00] VITALS: PULSE 79; O2SAT 98
[2024-04-02] MEDS: ondansetron 2 mg/ML SDV 2 mL 4 MG IVP (20:01)
[2024-04-02 20:05] LABS: Add Urine Microscopic? NO; Charge for UA Resulting for Rev
[2024-04-02 20:14] LABS: Bilirubin Urine Neg (Negative); Blood Urine Neg (Negative); Glucose Urine UA Norm (Normal); Ketones Urine 1+ (Negative); Leukocyte Esterase Urine Negative (Negative); Nitrate Urine Negative (Negative); Protein Urine Neg (Negative); Urine Appearance Clear (CLEAR); Urine Color Yellow (Yellow); Urobilinogen Urine Norm (Negative); pH Urine 5 (5-7)
== END 2024-04-02 20:47 | disposition home or self-care (01) ==
PROVIDERS: Emergency Medicine; Emergency Provider Emergency Medicine; PCP Nurse Practitioner Family
DX: R11.2 Nausea with vomiting, unspecified (principal); Z79.899 Other long term (current) drug therapy; F17.210 Nicotine dependence, cigarettes, uncomplicated
CPT/HCPCS: 36415; 71045; 80053; 81003; 83735; 84443; 85025; 93005; 96361; 96374; 99285; J2405; J7030

== ENCOUNTER 2024-04-05 21:15 | Emergency (ER) | payer MEDICAID, SELFPAY ==
[2024-04-05 21:17] VITALS: BP 129/78; PULSE 92; RESP 16; TEMP 36.6; O2SAT 96
[2024-04-05 21:22] VITALS: BP 129/84; PULSE 95; RESP 21; O2SAT 96
--- NOTE | 2024-04-05 21:54 | XRR_ITS ---
PROCEDURE INFORMATION: Exam: XR Chest Exam date and time: 04/05/2024 10:03 PM Age: 28 years old Clinical indication: Shortness of breath and other: Chest pain; Additional info: Chest pain/cough TECHNIQUE: Imaging protocol: Radiologic exam of the chest. Views: 1 view. COMPARISON: CR (CHEST, ) 04/02/2024 6:42 PM FINDINGS: Lungs: Unremarkable. No consolidation. Pleural spaces: Unremarkable. No pleural effusion. No pneumothorax. Heart/Mediastinum: Unremarkable. No cardiomegaly. Bones/joints: Unremarkable. XR/XR chest 1V portable [id number] IMPRESSION: Negative for airspace consolidation.
[2024-04-05 22:00] VITALS: PULSE 93; RESP 16; O2SAT 92
--- NOTE | 2024-04-05 22:33 | ED_ITS ---
HPI - General Adult 2 General: Chief complaint: Upper Respiratory Infection Stated complaint: Sob chest tight burning Time Seen by Provider: 04/05/24 21:54 Source: patient Mode of arrival: ambulatory Limitations: no limitations History of Present Illness: Patient is a 28-year-old male presents to ED today with complaint of burning in his chest, productive cough, sore throat, headache, nausea and vomiting. States he felt like this last time he had pneumonia. He is not having any abdominal pain. He has not noticed any changes in his bowel movement. Patient has multiple previous visits for complaints of chest pain. He has had previous visits with complaints of headaches as well. He did undergo CT imaging last month of his head which was normal. He also has complaints of severe fatigue. He has reportedly seen his primary care provider for this and on vitamin D. He reportedly had a subjective fever earlier today while at work. He arrives with stable vital signs here and is afebrile. Onset (ago): day(s) Associated symptoms: Reports chest pain, dyspnea, headache(s), nausea and vomiting; Deny rash, palpitations or syncope Treatments prior to arrival: none Review of Systems 2 Const: Reports: fever(s) (subjective earlier today) and fatigue; Denies: chills or body aches Eyes: Denies: change in vision, blurry vision, photophobia, floaters or seeing flashes ENMT: Reports: throat pain and odynophagia; Denies: uvular edema, enlarged tonsils, ear or mastoid pain, nasal discharge, nasal congestion or sinus pain Card: Reports: chest pain; Denies: palpitations, irregular heart rhythm, edema, swelling of feet/ankles, lightheadedness, syncope, pre-syncope, dyspnea on exertion, orthopnea, leg pain with exertion or acrocyanosis Resp: Reports: dyspnea, non-productive cough and change in phlegm color; Denies: productive cough, wheezing, pain on inspiration or hemoptysis GI: Reports: nausea and vomiting; Denies: abdominal pain, heartburn or diarrhea : Denies: flank pain, difficulty urinating or dysuria Musc: Denies: neck pain, back pain, extremity pain, extremity swelling or joint pain Skin/Breast: Denies: rash Neuro: Reports: headache(s); Denies: numbness in extremities, weakness in extremities, sensory changes or dizziness PFSH ED 2 PFSH: Medical History GERD (gastroesophageal reflux disease) No pertinent family history Surgical History Hx laparoscopic cholecystectomy 08/23/23 Dr Wyatt No pertinent past surgical history Social History Smoking and tobacco/nicotine status: current every day tobacco/nicotine user Alcohol intake: never Physical Exam 2 Const: COMMON NORMALS: no acute distress, patient oriented x3, no limitations, alert and well nourished GENERAL APPEARANCE: cooperative NUTRITIONAL APPEARANCE: obese ORIENTATION/CONSCIOUSNESS: Yes awake, Yes oriented to person, Yes oriented to place and Yes oriented to time HENMT: COMMON NORMALS: normocephalic, atraumatic, EAC's normal, TM's normal bilaterally, Normal external nose present, Normal nasal mucous membranes and turbinates present, moist oral mucous membranes and oropharynx normal HEAD & SCALP: normal to inspection, normocephalic and atraumatic FACE & SINUS: n ormal facial exam NOSE: Normal external nose present and Normal nasal mucous membranes and turbinates present EXTERNAL AUDITORY CANAL: EAC's normal T YMPANIC MEMBRANE: TM's normal bilaterally MOUTH: Normal oral and palatal mucosa present and lip normal THROAT: posterior oropharynx normal and tonsils normal; no uvular edema Eye: COMMON NORMALS: Equal, round and reactive pupils present and EOMs intact bilaterally GENERAL EYE: appearance normal, both eyes and all related structures and normal light reflex PUPIL: Yes Equal, round and reactive pupils present DIRECT OPHTHALMOSCOPY: Yes normal light reflex Neck/C-Spine: COMMON NORMALS: full ROM, no lymphadenopathy, supple and no meningeal signs Chest: COMMONS NORMALS: normal inspection of the chest Resp: COMMON NORMALS: normal respiratory effort and clear to auscultation bilaterally AUSCULTATION: clear to auscultation bilaterally Cardio: COMMON NORMALS: regular rate and regular rhythm RATE: regular rate RHYTHM: regular rhythm GI: COMMON NORMALS: Normal to inspection, nondistended, normoactive bowel sounds present, Soft to palpation, non-tender, No hepatosplenomegaly present and no masses PALPATION: Yes Soft to palpation and Yes No hepatosplenomegaly present : COMMON NORMALS: Yes no CVA tenderness BLADDER/KIDNEY EXAM: Yes no CVA tenderness Back/Pelvis: COMMON NORMALS: no CVA tenderness and thoracic and lumbar spine normal to inspection Extremity: COMMON NORMALS: normal to inspection GENERAL: Yes normal exam except as noted Neuro: MENDY COMA SCALE: document GCS findings [place] coma scale eye opening: Spontaneous [place] coma scale verbal response: Orientated [place] coma scale motor response: Obey commands [place] coma scale total score: 15 COMMON NORMALS: patient oriented x3, moves all extremities, no focal motor deficits and no sensory deficits noted SENSORIUM/ORIENTATION: Yes alert, Yes oriented to person, Yes oriented to place and Yes oriented to time MENINGEAL SIGNS: Yes no meningeal signs Skin: COMMON NORMALS: no rashes or lesions noted GENERAL SKIN EXAM: no rashes or lesions noted Course 2 Vital Signs: Vital signs: Vital Signs Temperature 97.8 F 04/05/24 21:17 Pulse Rate 83 04/05/24 23:57 Respiratory Rate 23 H 04/05/24 23:57 Blood Pressure 122/75 04/05/24 23:57 Pulse Oximetry 93 04/05/24 23:57 Oxygen Delivery Me thod Room Air 04/05/24 21:17 MDM - General Adult Medical Decision Making Patient here for multiple complaints including headache, sore throat, nausea, vomiting, fatigue, subjective fever, burning in his chest, productive cough. His vital signs are completely normal upon arrival. He appears in no acute distress. His blood work overall is nonactionable. He is mildly hypokalemic with a potassium of 3.2. Did give him an oral dose prior to discharge. Will run tick panel. Discussed possible viral etiology. His initial CXR showed what looked to be like a right elevated hemidiaphragm new from CXR performed 3 days ago. He had radiology repeat this with patient standing and deeper inhalation and on repeat imaging this resolved. Patient was given Reglan and a GI cocktail for his nausea/vomiting and burning in his chest-he reported significant relief following this. Used to take meds for GERD but discontinued them. He was recommended to follow-up with his primary care provider next week. Return ED precautions given. Medical Records I reviewed the patient's medical records. Lab Data I reviewed the patient's lab results. 04/05/24 22:26 04/05/24 22:26 Radiology Impressions Chest X-Ray 04/05/24 22:46 IMPRESSION: No acute findings. Diaphragms appear relatively symmetric. Laboratory Results WBC 11.57 10^3/uL (3.29-11.43) H 04/05/24 22: RBC 5.45 10^6/uL (3.85-5.65) 04/05/24 22: Hgb 15.60 g/dL (11.27-16.99) 04/05/24 22: Hct 46.7 % (37-53) 04/05/24 22: MCV 85.7 fl (82-101) 04/05/24 22: MCH 28.6 pg (27-33) 04/05/24 22: MCHC 33.4 g/dL (30-55) 04/05/24 22: RDW 14.0 % (12.1-15.1) 04/05/24 22: Plt Count 349 10^3/cmm (157-399) 04/05/24 22: MPV 9.5 fL (7.4-10.4) 04/05/24 22: Neut % (Auto) 53.2 % 04/05/24 22: Lymph % (Auto) 37.7 % 04/05/24 22: [place] % (Auto) 5.8 % 04/05/24 22: Eos % (Auto) 2.2 % 04/05/24 22: Baso % (Auto) 0.8 % 04/05/24 22: Neut # (Auto) 6.16 10^3/uL (1.8-7.7) 04/05/24 22: Lymph # (Auto) 4.4 10^3/uL (0.8-4.8) 04/05/24 22: [place] # (Auto) 0.7 10^3/uL (0.2-0.9) 04/05/24 22: Eos # (Auto) 0.3 10^3/uL (0.0-0.8) 04/05/24 22: Baso # (Auto) 0.1 10^3/uL (0.0-0.1) 04/05/24: Nucleated RBC % (auto) 0 % 04/05/24: Nucleated RBCs # 0.0 /100WBC 04/05/24 22:26 Sodium 139 mmol/L (136-145) 04/05/24 22:26 Potassium 3.2 mmol/L (3.5-5.1) L 04/05/24 22:26 Chloride 101 mmol/L (98-107) 04/05/24 22:26 Carbon Dioxide 27 mmol/L (22-29) 04/05/24 22:26 Anion Gap 14.2 (5-19) 04/05/24 22:26 BUN 12 mg/dL (6-20) 04/05/24 22:26 Creatinine 0.9 mg/dL (0.7-1.2) 04/05/24 22:26 GFR Calculation 100.5 mL/min (90-130) 04/05/24 22:26 Glucose 110 mg/dL (65-115) 04/05/24 22:26 Calculated Osmolality 288 mOsm/kg (285-295) 04/05/24 22:26 Calcium 9.2 mg/dL (8.5-10.5) 04/05/24 22:26 Total Bilirubin 0.9 mg/dL (0.15-1.2) 04/05/24 22:26 AST 20 U/L (0-40) 04/05/24 22:26 ALT 21 U/L (0-41) 04/05/24 22:26 Alkaline Phosphatase 67 U/L (40-130) 04/05/24 22:26 C-Reactive Protein 3.0 mg/L (0.0-4.9) 04/05/24 22:26 Total Protein 6.9 g/dL (6.6-8.7) 04/05/24 22:26 Albumin 4.3 g/dL (3.5-5.2) 04/05/24 22:26 Globulin 2.6 g/dL (1.3-4.6) 04/05/24 22:26 All radiology interpretation(s) finalized by discharge Discharge Plan Discharge Patient Disposition: Home Clinical Impression: Burning in the chest Fatigue Qualifiers: Fatigue type: chronic, unspecified Qualified Code(s): R53.82 - Chronic fatigue, unspecified Nausea & vomiting Qualifiers: Vomiting type: unspecified Qualified Code(s): R11.2 - Nausea with vomiting, unspecified Condition: Stable Prescriptions: No Action cefdinir 300 mg capsule 300 mg PO BID 10 Days Qty: 20 0RF ergocalciferol (vitamin D2) 1,250 mcg (50,000 unit) capsule See Rx Instructions .ROUTE .COMPLEX Qty: 12 0RF Dose Instruction: Take 1 capsule by mouth once a week Rx Instructions: Take 1 capsule by mouth once a week ibuprofen 200 mg Tablet 200 mg PO Q6H PRN (Reason: Pain) Pepto-Bismol 262 mg Tablet,Chewable 2 tab PO Q1H PRN (Reason: Indigestion) Rx Instructions: do not exceed 16 tabs per 24 hrs Discharge Orders: Discharge ED (Routine); Ordered 04/05/24 Ordered By: Nandini Freitas Referrals: Sangeeta Kan FNP [Primary Care Provider] - Coding Level of Care Code ED Pododermatologist for Galilea Mcgill
[2024-04-05 22:39] LABS: Basophils # 0.1 10^3/uL (0.0-0.1); Basophils % 0.8 %; Eosinophils # 0.3 10^3/uL (0.0-0.8); Eosinophils % 2.2 %; Hematocrit 46.7 % (37-53); Lymphocytes # 4.4 10^3/uL (0.8-4.8); Lymphocytes % 37.7 %; Mean Corpuscular HGB Conc 33.4 g/dL (30-55); Mean Corpuscular Hemoglobin 28.6 pg (27-33); Mean Corpuscular Volume 85.7 fl (82-101); Mean Platelet Volume 9.5 fL (7.4-10.4); Monocytes # 0.7 10^3/uL (0.2-0.9); Monocytes % 5.8 %; Neutrophils # 6.16 10^3/uL (1.8-7.7); Neutrophils % 53.2 %; Nucleated Red Blood Cells % 0 %; Platelet Count 349 10^3/cmm (157-399); Red Blood Count 5.45 10^6/uL (3.85-5.65); White Blood Count 11.57 10^3/uL (3.29-11.43)
--- NOTE | 2024-04-05 22:46 | XRR_ITS ---
PROCEDURE INFORMATION: Exam: XR Chest Exam date and time: 04/05/2024 10:53 PM Age: 28 years old Clinical indication: Pain; Chest pressure; Patient HX: SOB; Chest tightness; Burning sensation; Additional info: SOB; Chest tightness; Burning sensation; Elevated RT hemidiaphragm on previous cxr today-not there when PT was seen 3 days ago; Please compare TECHNIQUE: Imaging protocol: Radiologic exam of the chest. Views: 2 views. COMPARISON: CR (CHEST, ) 04/05/2024 10:03 PM FINDINGS: Lungs: Unremarkable. No consolidation. Pleural spaces: Unremarkable. No pleural effusion. No pneumothorax. Heart/Mediastinum: Unremarkable. No cardiomegaly. Bones/joints: Unremarkable. XR/XR chest 2V* [id number] IMPRESSION: No acute findings. Diaphragms appear relatively symmetric.
[2024-04-05 22:52] VITALS: BP 122/75; PULSE 88; RESP 21; O2SAT 92
[2024-04-05 22:55] LABS: Alanine Aminotransferase 21 U/L (0-41); Albumin Level 4.3 g/dL (3.5-5.2); Alkaline Phosphatase 67 U/L (40-130); Anion Gap 14.2 (5-19); Aspartate Amino Transferase 20 U/L (0-40); Blood Urea Nitrogen 12 mg/dL (6-20); Calcium 9.2 mg/dL (8.5-10.5); Carbon Dioxide 27 mmol/L (22-29); Chloride 101 mmol/L (98-107); Creatinine Clr Calc Pharmacy 152.7244; Globulin 2.6 g/dL (1.3-4.6); Glomerular Filtration Rate 100.5 mL/min (90-130); Glucose 110 mg/dL (65-115); Osmolality Calculated 288 mOsm/kg (285-295); Potassium 3.2 mmol/L (3.5-5.1); Sodium 139 mmol/L (136-145); Total Bilirubin 0.9 mg/dL (0.15-1.2); Total Protein 6.9 g/dL (6.6-8.7)
[2024-04-05] MEDS: potassium chloride ER 20 mEq Tablet 40 MEQ PO (23:34)
[2024-04-05] MEDS: lidocaine 2% viscous 15 ML, aluminum-mag hydrox-simethicon 30 ML, sucralfate oral liq 1 GM PO (23:35)
[2024-04-05] MEDS: metoclopramide 5 mg/mL SDV 2 mL 10 MG IVP (23:36)
[2024-04-05 23:57] VITALS: BP 122/75; PULSE 83; RESP 23; O2SAT 93
[2024-04-09 13:00] LABS: Lyme AB Screen <0.90 index
== END 2024-04-05 23:59 | disposition home or self-care (01) ==
PROVIDERS: Emergency Provider Physician Assistant; PCP Nurse Practitioner Family
DX: R53.82 Chronic fatigue, unspecified (principal); R11.2 Nausea with vomiting, unspecified; R07.89 Other chest pain; Z72.0 Tobacco use
CPT/HCPCS: 71045; 71046; 80053; 85025; 86140; 86618; 86666; 86757; 96374; 99284; J2765

== ENCOUNTER → 2024-04-10 12:05 | Outpatient (CLI) | payer MEDICAID, SELFPAY ==
[2024-04-10] MEDS: iohexol 350 mg/mL 500 mL Btl (per mL) PO (13:03)
--- NOTE | 2024-04-10 13:30 | CTR_ITS ---
PROCEDURE INFORMATION: Exam: CT Abdomen And Pelvis With Contrast Exam date and time: 04/10/2024 1:29 PM Age: 28 years old Clinical indication: Localized; Left lower quadrant (llq); Prior surgery; Surgery date: 6+ months; Surgery type: Gb; Patient HX: Left mid abdominal pain x 2 months with diarrhea and nausea; Additional info: R10.32 - left lower quadrant pain TECHNIQUE: Imaging protocol: Computed tomography of the abdomen and pelvis with contrast. Axial, coronal and sagittal reformatted images were created and reviewed. Radiation optimization: All CT scans at this facility use at least one of these dose optimization techniques: automated exposure control; mA and/or kV adjustment per patient size (includes targeted exams where dose is matched to clinical indication); or iterative reconstruction. Contrast material: OMNI 350; Contrast volume: 100 ml; Contrast route: INTRAVENOUS (IV); COMPARISON: CT abdomen pelvis w con* [id number] 08/24/2023 11:06 PM RADIATION DOSE METRICS: Total DLP (mGy-cm): 883.53 FINDINGS: Liver: Unremarkable. Gallbladder and bile ducts: Status post cholecystectomy. No biliary ductal dilatation. Pancreas: Unremarkable. Spleen: Unremarkable. Adrenal glands: Normal. No mass. Kidneys and ureters: No mass. No radiodense calculi. No hydronephrosis. Stomach and bowel: No bowel wall thickening. No obstruction. No pneumatosis. Appendix: Normal. Intraperitoneal space: No free fluid. No organized fluid collection. No free air. Vasculature: Unremarkable. No aneurysm. Lymph nodes: No pathologically enlarged lymph nodes. Urinary bladder: Unremarkable as visualized. Reproductive: Unremarkable. Bones/joints: No acute osseous abnormality. Mild degenerative changes. Soft tissues: Small, fat containing left inguinal hernia. CT/CT abdomen pelvis w con* [id number]: 1[address] No CT evidence of acute intra-abdominal or pelvic pathology. 2. Additional findings, as above.
[2024-04-10] MEDS: iohexol 350 mg/mL 500 mL Btl (per mL) IV (13:34)
== END | disposition home or self-care (01) ==
LOC: RAD 12:06
PROVIDERS: PCP Nurse Practitioner Family; Visit Provider Nurse Practitioner Family
DX: R10.32 Left lower quadrant pain (principal); Z90.49 Acquired absence of other specified parts of digestive tract; K40.90 Unilateral inguinal hernia, without obstruction or gangrene, not specified as recurrent
CPT/HCPCS: 74177; Q9967

== ENCOUNTER → 2024-04-18 10:09 | Outpatient (BNVA) | payer OTHER, SELFPAY | PROVIDERS: PCP Nurse Practitioner Family; Visit Provider Nurse Practitioner Family | DX: M25.522 Pain in left elbow (principal); M25.532 Pain in left wrist; M25.512 Pain in left shoulder | CPT/HCPCS: 73030; 73070; 73110 ==

== ENCOUNTER 2024-04-24 12:05 | Outpatient (CLI) | payer MEDICAID, SELFPAY ==
--- NOTE | 2024-04-24 | ECG_ITS ---
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
[2024-04-24 12:12] VITALS: BMI 34.2
[2024-04-24 12:52] VITALS: BP 148/69; PULSE 102
== END 2024-04-24 12:06 | disposition home or self-care (01) ==
LOC: CDL 12:05
PROVIDERS: PCP Nurse Practitioner Family; Visit Provider Nurse Practitioner Family
DX: R07.9 Chest pain, unspecified (principal); R94.39 Abnormal result of other cardiovascular function study
CPT/HCPCS: 93017

== ENCOUNTER 2024-05-16 00:23 | Emergency (ER) | payer MEDICAID, SELFPAY ==
[2024-05-16 00:29] VITALS: BP 118/80; PULSE 80; RESP 18; TEMP 36.7; O2SAT 97; BMI 31.4
--- NOTE | 2024-05-16 00:44 | W.ED.EAR ---
HPI - Ear Problem General: Chief complaint: Ear Stated complaint: Left ear pain Time Seen by Provider: 05/16/24 00:38 History of Present Illness: Presents to the ER with complaints of left ear pain. Also left maxillary pain and pressure. Patient says he went to the PCP a while back they gave him a Zithromax pack and it did not do any good now it is worse. But denies any discharge out of his ear. Review of Systems General: Reports: 10 or more systems reviewed and unremarkable except in HPI and below PFSH ED PFSH: Medical History GERD (gastroesophageal reflux disease) No pertinent family history Surgical History Hx laparoscopic cholecystectomy 08/23/23 Dr Wyatt No pertinent past surgical history Social History Smoking and tobacco/nicotine status: never used tobacco/nicotine Alcohol intake: never Physical Exam Const: COMMON NORMALS: no acute distress, average body habitus, patient oriented x3, no limitations, healthy appearing, alert and well nourished HENMT: COMMON NORMALS: normocephalic, atraumatic, hearing grossly normal bilaterally, external ears normal, EAC's normal, Normal external nose present, Normal nasal mucous membranes and turbinates present, moist oral mucous membranes and oropharynx normal; TM's not normal bilaterally (Left TM red and erythematous) HEAD & SCALP: normocephalic and atraumatic NOSE: Normal external nose present and Normal nasal mucous membranes and turbinates present EXTERNAL EAR: Yes external ears normal EXTERNAL AUDITORY CANAL: EAC's normal TYMPANIC MEMBRANE: TM(s) not normal bilaterally (Left TM red and erythematous) Neck/C-Spine: COMMON NORMALS: full ROM, no lymphadenopathy, supple, no meningeal signs, no JVD and Thyroid normal THYROID: Thyroid normal Chest: COMMONS NORMALS: normal inspection of the chest and normal palpation of entire chest wall Resp: COMMON NORMALS: normal respiratory effort, No retractions, No use of accessory muscles and clear to auscultation bilaterally AUSCULTATION: clear to auscultation bilaterally Cardio: COMMON NORMALS: no JVD, regular rate, regular rhythm, S1 normal heart sound present, S2 normal heart sound present, No gallops present (Cardio), No clicks present (Cardio), No murmurs present (Cardio) and No rub (Cardio) RATE: regular rate RHYTHM: regular rhythm HEART SOUNDS: S1 normal heart sound present and S2 normal heart sound present GI: COMMON NORMALS: Normal to inspection, nondistended, normoactive bowel sounds present, Soft to palpation, non-tender, No hepatosplenomegaly present and no masses PALPATION: Yes Soft to palpation and Yes No hepatosplenomegaly present Neuro: COMMON NORMALS: patient oriented x3 SENSORIUM/ORIENTATION: Yes alert MENINGEAL SIGNS: Yes no meningeal signs Course Vital Signs: Vital signs: Vital Signs Temperature 98.1 F 05/16/24 00:29 Pulse Rate 80 05/16/24 00:29 Respiratory Rate 18 05/16/24 00:29 Blood Pressure 118/80 05/16/24 00:29 Pulse Oximetry 97 05/16/24 00:29 Oxygen Delivery Me thod Room Air 05/16/24 00:29 MDM - Ear Medical Decision Making Patient appears to still clinically have a left ear infection of the left sinus infection possibly. Patient failed azithromycin. We will try clindamycin. Patient be discharged and should follow-up with his PCP. Differential Diagnosis Likely otitis media Medical Records I reviewed the patient's medical records. Lab Data I reviewed the patient's lab results. No radiology studies performed this visit Discharge Plan Discharge Patient Disposition: Home Clinical Impression: Otitis media Qualifiers: Otitis media type: unspecified Chronicity: acute Qualified Code(s): H66.90 - Otitis media, unspecified, unspecified ear Acute maxillary sinusitis Qualifiers: Recurrence: non-recurrent Qualified Code(s): J01.00 - Acute maxillary sinusitis, unspecified Condition: Stable Prescriptions: New clindamycin HCl 300 mg capsule 300 mg PO Q8H 10 Days Qty: 30 0RF Discontinued azithromycin 250 mg tablet See Rx Instructions PO .COMPLEX Qty: 6 0RF Rx Instructions: For 250 mg dose pack: take 500 mg today (day 1), then 250 mg for 4 days (days 2-5) PO Discharge Orders: Discharge ED (Routine); Ordered 05/16/24 Ordered By: Crow Marinelli Referrals: Sangeeta Kan FNP [Primary Care Provider] - 1 week Patient Instructions: Ear Infection (ED), Sinusitis (ED) Activity Restrictions/Additional Instructions: Please take all your antibiotics as directed. Please follow-up with your family practice physician in the next 7 days for further evaluation and treatment as needed. Thank you [facility] today. Please realize that you were seen in the emergency department and that we are providing you with an emergency medical screening exam and this may not be a complete and all exclusive of all testing and/or medical workup we may need to determine your element or severity of your illness. It is very important that you follow-up as instructed with your primary care provider or specialist for the additional evaluation and to discuss your medical treatment plan. You may return to the emergency department should you have concerns or if your condition changes or worsens in any way. Coding Level of Care Code ED Brusher Warp for Galilea Mcgill
[2024-05-16] MEDS: clindamycin 150 mg Capsule 300 MG PO (00:47)
== END 2024-05-16 01:03 | disposition home or self-care (01) ==
PROVIDERS: Emergency Provider Emergency Medicine; PCP Nurse Practitioner Family
DX: J01.00 Acute maxillary sinusitis, unspecified (principal); H66.92 Otitis media, unspecified, left ear
CPT/HCPCS: 99283

== ENCOUNTER 2024-06-06 03:02 | Emergency (ER) | payer MEDICAID, SELFPAY ==
[2024-06-06 03:09] VITALS: BP 141/89; PULSE 84; RESP 18; TEMP 36.6; O2SAT 95; BMI 34.2
--- NOTE | 2024-06-06 03:21 | ED_ITS ---
HPI - Headache General: Chief Complaint: Headache Stated Complaint: General Medical History of Present Illness: 28-year-old male with history of headach es who presents emergency room with a headache. He took some ibuprofen last night did not help. He describes pain in the back of his head that goes down his neck. Light, noise and eating all make it worse. No altered mental status. No focal motor deficits. Related Data Previous Rx's Medication Instructions Recorded diclofenac sodium 50 mg 50 mg PO BID PRN pain #14 tabs 06/06/24 tablet,delayed release Allergies Allergy/AdvReac Type Severity Reaction Status Date / Time Penicillins Allergy Mild ALGY-Rash Verified 06/06/24 03:12 Review of Systems Narrative: Constitutional symptoms: Negative except as documented in HPI. Skin symptoms: Negative except as documented in HPI. Eye symptoms: Negative except as documented in HPI. ENMT symptoms: Negative except as documented in HPI. Respiratory symptoms: Negative except as documented in HPI. Cardiovascular symptoms: Negative except as documented in HPI. Gastrointestinal symptoms: Negative except as documented in HPI. Genitourinary symptoms: Negative except as documented in HPI. Musculoskeletal symptoms: Negative except as documented in HPI. Neurologic symptoms: Negative except as documented in HPI. Psychiatric symptoms: Negative except as documented in HPI. Endocrine symptoms: Negative except as documented in HPI. [facility] ED PFSH: Medical History GERD (gastroesophageal reflux disease) No pertinent family history Surgical History Hx laparoscopic cholecystectomy 08/23/23 Dr Wyatt No pertinent past surgical history Social History Smoking and tobacco/nicotine status: never used tobacco/nicotine Alcohol intake: never Physical Exam Narrative: EXAM NARRATIVE: General: Alert, no acute distress. Skin: warm and dry Head: Normocephalic Neck: Trachea midline Eye: Extraocular movements are intact. Ears, nose, mouth and throat: Oral mucosa moist Respiratory: Respirations are non-labored Musculoskeletal: Normal ROM Neurological: Alert and oriented, No focal neurological deficit observed. Psychiatric: Cooperative, appropriate mood & affect. Course Vital Signs: Vital signs: Vital Signs Temperature 97.9 F 06/06/24 03:09 Pulse Rate 84 06/06/24 03:09 Respiratory Rate 18 06/06/24 03:09 Blood Pressure 141/89 06/06/24 03:09 Pulse Oximetry 95 06/06/24 03:09 Oxygen Delivery Me thod Room Air 06/06/24 03:09 MDM - Headache Medical Decision Making Assessment and plan: Headache -IV Toradol, Decadron, Benadryl, Compazine, Zofran IM Norflex - Discharged home - Discussed plan with patient. Answered any questions. - Evaluation and treatment of this problem were appropriate in the emergency setting. No radiology studies performed this visit Discharge Plan Discharge Patient Disposition: Home Clinical Impression: Headache Condition: Stable Prescriptions: New diclofenac sodium 50 mg tablet,delayed release (DR/EC) 50 mg PO BID PRN (Reason: pain) Qty: 14 0RF Discharge Orders: Discharge ED (Routine); Ordered 06/06/24 Ordered By: Tita Santana Referrals: Sangeeta Kan FNP [Primary Care Provider] - Discharge Diet: Usual diet Discharge Activity: Increase activity as tolerated Patient Instructions: Acute Headache (ED) Activity Restrictions/Additional Instructions: Thank you for choosing [facility] for your healthcare needs today. Please realize this is an emergency room and that we are providing you with a medical screening exam and this may not be complete and all inclusive of all the testing and or work up that you may need to determine your ailment or severity of your illness. You have been screened and evaluated and felt safe for discharge. Health conditions do change or evolve sometimes and as such it is important that you follow up with your Primary Doctor to be re checked, 3-5 days is a general good time frame for follow up. You are always welcome to return to the ED for re assessment if your symptoms are worsening or you have new concerns Coding Level of Care Code ED Dairy Quality Assurance Officer for Galilea Mcgill
[2024-06-06] MEDS: ondansetron 2 mg/ML SDV 2 mL 4 MG IVP (03:56)
[2024-06-06] MEDS: orphenadrine 30 mg/mL Inj 2 mL 60 MG IVP (04:02)
[2024-06-06] MEDS: diphenhydrAMINE 50 mg/mL SDV 1mL 25 MG IVP (04:06)
[2024-06-06] MEDS: prochlorperazine 10 mg/2 mL Inj IVP (04:09)
[2024-06-06] MEDS: dexamethasone 10 mg/mL INJ IVP (04:13)
[2024-06-06] MEDS: ketorolac 30 mg/mL INJ IVP (04:17)
[2024-06-06 05:21] VITALS: BP 128/82; PULSE 76; O2SAT 93
--- NOTE | 2024-06-07 11:29 | PC.NURSE ---
RX CALLED INTO [facility].
== END 2024-06-06 05:23 | disposition home or self-care (01) ==
PROVIDERS: Emergency Provider Emergency Medicine; PCP Nurse Practitioner Family
DX: R51.9 Headache, unspecified (principal)
CPT/HCPCS: 96374; 96375; 99284; J0780; J1100; J1200; J1885; J2360; J2405

== ENCOUNTER 2024-06-25 20:26 | Emergency (ER) | payer MEDICAID, SELFPAY ==
[2024-06-25 20:30] VITALS: BP 150/91; PULSE 102; RESP 16; TEMP 36.8; O2SAT 99
--- NOTE | 2024-06-25 21:55 | W.ED.ALLEREA ---
HPI - Allergic Reaction General: Chief complaint: Allergic Reaction Stated complaint: Allergic reaction to meds Time Seen by Provider: 06/25/24 21:39 Source: patient Mode of arrival: ambulatory Limitations: no limitations History of Present Illness: HPI narrative: 20-year-old male states has been having recurrent otitis externa to left ear patient states that he had received Toradol shot today and he believes he had allergic reaction he had a rash that popped up on his extremity states the rash is improved he had some slight throat tightness that is improving as well he states that he still has pain in that left ear. Denies any fevers Associated symptoms: Deny abdominal pain, nausea or vomiting Related Data Previous Rx's Medication Instructions Recorded ciprofloxacin 0.3 %-dexamethasone 4 drp otic (ear) BID 7 days #7.5 mL 06/25/24 0.1 % ear drops,suspension diclofenac sodium 75 mg 75 mg PO BID PRN pain #60 tabs 06/25/24 tablet,delayed release hydrocodone 5 mg-acetaminophen 325 1 tab PO Q6H PRN pain #14 tabs 06/25/24 mg tablet Allergies Allergy/AdvReac Type Severity Reaction Status Date / Time Penicillins Allergy Mild ALGY-Rash Verified 06/25/24 20:34 diclofenac Allergy ADR-Itching Verified 06/25/24 20:34 Review of Systems Const: Denies: fever(s), chills, body aches or change in appetite ENMT: Reports: ear or mastoid pain and ear discharge; Denies: throat pain or dental pain Card: Denies: chest pain Resp: Denies: dyspnea GI: Denies: abdominal pain, nausea, vomiting or diarrhea Musc: Denies: neck pain or back pain Skin/Breast: Reports: rash and pruritus Neuro: Denies: headache(s) PFSH ED PFSH: Medical History GERD (gastroesophageal reflux disease) No pertinent family history Surgical History Hx laparoscopic cholecystectomy 08/23/23 Dr Wyatt No pertinent past surgical history Social History Smoking and tobacco/nicotine status: never used tobacco/nicotine Alcohol intake: never Physical Exam Const: COMMON NORMALS: no acute distress, patient oriented x3 and healthy appearing HENMT: COMMON NORMALS: normocephalic and atraumatic HEAD & SCALP: normocephalic and atraumatic THROAT: posterior oropharynx normal OTHER: Otitis externa of the left canal no tenderness over his mastoid Eye: COMMON NORMALS: Equal, round and reactive pupils present and EOMs intact bilaterally PUPIL: Yes Equal, round and reactive pupils present Neck/C-Spine: COMMON NORMALS: full ROM and supple Chest: COMMONS NORMALS: normal inspection of the chest Resp: COMMON NORMALS: normal respiratory effort Cardio: COMMON NORMALS: regular rate, regular rhythm and No murmurs present (Cardio) RATE: regular rate RHYTHM: regular rhythm Extremity: COMMON NORMALS: normal to inspection and full ROM Neuro: COMMON NORMALS: patient oriented x3, moves all extremities and no focal motor deficits Psych: COMMON NORMALS: mental status grossly normal, Normal thought process present and cooperative THOUGHT PROCESS: Normal thought process present Skin: COMMON NORMALS: no rashes or lesions noted and no wounds GENERAL SKIN EXAM: no rashes or lesions noted Course Vital Signs: Vital signs: Vital Signs Temperature 98.3 F 06/25/24 20:30 Pulse Rate 99 06/25/24 22:10 Respiratory Rate 18 06/25/24 22:10 Blood Pressure 136/78 06/25/24 22:10 Pulse Oximetry 99 06/25/24 22:10 Oxygen Delivery Me thod Room Air 06/25/24 22:10 MDM - Allergic Reaction Medical Decision Making Patient presents here with possible allergic reaction is rash here is improved he still has an otitis externa we will start him on Ciprodex gave him his first dose in the ER will prescribe pain meds he is to follow-up with ENT return if worsening. Medical Records I reviewed the patient's medical records. No radiology studies performed this visit Discharge Plan Discharge Patient Disposition: Home Clinical Impression: Allergic reaction Qualifiers: Encounter type: initial encounter Qualified Code(s): T78.40XA - Allergy, unspecified, initial encounter Otitis externa Qualifiers: Otitis externa type: unspecified type Laterality: left Condition: Stable Prescriptions: New hydrocodone-acetaminophen 5-325 mg tablet 1 tab PO Q6H PRN (Reason: pain) Qty: 14 0RF ciprofloxacin-dexamethasone 0.3-0.1 % drops,suspension 4 drp otic (ear) BID 7 Days Qty: 7.5 0RF No Action diclofenac sodium 75 mg tablet,delayed release (DR/EC) 75 mg PO BID PRN (Reason: pain) Qty: 60 0RF Discharge Orders: Discharge ED (Routine); Ordered 06/25/24 Ordered By: Mame Alejandre Referrals: Sangeeta Kan FNP [Primary Care Provider] - Discharge Diet: Advance as tolerated Discharge Activity: Resume usual activity Patient Instructions: Otitis Externa - Adult, General Allergic Reaction (ED), Opioid Safety Coding Level of Care Code ED [employer] for Galilea Mcgill
[2024-06-25 22:10] VITALS: BP 136/78; PULSE 99; RESP 18; O2SAT 99
[2024-06-25] MEDS: HYDROcodone-acetaminophen 5-325 mg Tablet 1 TAB PO (22:14)
[2024-06-25] MEDS: diphenhydrAMINE 50 mg/mL SDV 1mL IM (22:14)
[2024-06-25] MEDS: dexamethasone 10 mg/mL INJ IM (22:16)
[2024-06-25] MEDS: ciprofloxacin-dexameth Otic Susp 7.5 mL Btl 4 DROP EAR-LEFT (22:18)
[2024-06-25 22:25] VITALS: BP 127/83; PULSE 97; O2SAT 95
[2024-06-26 00:10] LABS: Glucose Point of Care 83 mg/dL (70-110)
== END 2024-06-25 22:26 | disposition home or self-care (01) ==
PROVIDERS: Emergency Provider Emergency Medicine; PCP Nurse Practitioner Family
DX: L27.0 Generalized skin eruption due to drugs and medicaments taken internally (principal); T39.8X5A Adverse effect of other nonopioid analgesics and antipyretics, not elsewhere classified, initial encounter; H60.92 Unspecified otitis externa, left ear
CPT/HCPCS: 36416; 82962; 96372; 99284; J1100; J1200

== ENCOUNTER 2024-07-07 00:40 | Emergency (ER) | payer MEDICAID, SELFPAY ==
[2024-07-07 00:47] VITALS: BP 142/87; PULSE 93; RESP 17; TEMP 36.6; O2SAT 97; BMI 35.5
[2024-07-07 02:53] VITALS: BP 129/84; PULSE 81; O2SAT 97
[2024-07-07] MEDS: clindamycin 150 mg Capsule 300 MG PO (03:27)
[2024-07-07 03:28] VITALS: RESP 15
[2024-07-07] MEDS: oxyCODONE-APAP 5-325 mg Tablet 2 TAB PO (03:28)
[2024-07-07 03:37] VITALS: BP 135/92; PULSE 81; O2SAT 97
--- NOTE | 2024-07-07 06:23 | ED_ITS ---
HPI - Dental/Oral General: Chief complaint: Dental/Oral Stated complaint: Tooth Pulled Bleeding Time Seen by Provider: 07/07/24 03:06 History of Present Illness: 28-year-old male who had his last tooth, a left bottom molar, extracted last week. He complains of a white film over the area, increasing pain, bad taste in his mouth, and bleeding earlier that is now stopped. No fever. No vomiting. Related Data Previous Rx's Medication Instructions Recorded diclofenac sodium 75 mg 75 mg PO BID PRN pain #60 tabs 06/25/24 tablet,delayed release hydrocodone 5 mg-acetaminophen 325 1 tab PO Q6H PRN pain #14 tabs 06/25/24 mg tablet clindamycin HCl 300 mg capsule 300 mg PO Q6H 10 days #40 caps 07/07/24 Allergies Allergy/AdvReac Type Severity Reaction Status Date / Time Penicillins Allergy Mild ALGY-Rash Verified 07/07/24 00:53 diclofenac Allergy ADR-Itching Verified 07/07/24 00:53 [facility] ED PFSH: Medical History GERD (gastroesophageal reflux disease) No pertinent family history Surgical History Hx laparoscopic cholecystectomy 08/23/23 Dr Wyatt No pertinent past surgical history Social History Smoking and tobacco/nicotine status: never used tobacco/nicotine Alcohol intake: never Physical Exam Const: COMMON NORMALS: no acute distress GENERAL APPEARANCE: cooperative; not ill appearing ORIENTATION/CONSCIOUSNESS: Yes awake, Yes oriented to person, Yes oriented to place and Yes oriented to time HENMT: COMMON NORMALS: normocephalic, atraumatic and Normal external nose present HEAD & SCALP: normocephalic and atraumatic FACE & SINUS: normal facial exam and face symmetric NOSE: Normal external nose present and Normal nares present TEETH & GINGIVA: Yes other OTHER: left mandibular molar socket with dislodged clot, minimal white exudate, minimal swelling. Patient is edentulous. Eye: COMMON NORMALS: Equal, round and reactive pupils present and EOMs intact bilaterally PUPIL: Yes Equal, round and reactive pupils present Neck/C-Spine: GENERAL: Yes trachea midline and No anterior neck swelling Chest: CHEST: Yes Symmetrical chest wall rise Resp: COMMON NORMALS: normal respiratory effort and No use of accessory muscles Neuro: SENSORIUM/ORIENTATION: Yes oriented to person, Yes oriented to place and Yes oriented to time Course Vital Signs: Vital signs: Vital Signs Temperature 98 F 07/07/24 00:47 Pulse Rate 81 07/07/24 03:37 Respiratory Rate 15 07/07/24 03:28 Blood Pressure 135/92 07/07/24 03:37 Pulse Oximetry 97 07/07/24 03:37 Oxygen Delivery Me thod Room Air 07/07/24 02:53 MDM - Dental/Oral Medical Decision Making Exam consistent with likely dry socket. Antibiotic coverage. Moistness to the area can help as well. He was told this. Outpatient follow-up with his dentist. No radiology studies performed this visit Discharge Plan Discharge Patient Disposition: Home Clinical Impression: Dry tooth socket Condition: Stable Prescriptions: New clindamycin HCl 300 mg capsule 300 mg PO Q6H 10 Days Qty: 40 0RF No Action diclofenac sodium 75 mg tablet,delayed release (DR/EC) 75 mg PO BID PRN (Reason: pain) Qty: 60 0RF hydrocodone-acetaminophen 5-325 mg tablet 1 tab PO Q6H PRN (Reason: pain) Qty: 14 0RF Discharge Orders: Discharge ED (Routine); Ordered 07/07/24 Ordered By: Bhanu Castaneda Referrals: Sangeeta Kan FNP [Primary Care Provider] - Patient Instructions: Dry Socket (ED), Opioid Safety, Pain Management Activity Restrictions/Additional Instructions: Antibiotics as directed. Rinse your mouth with warm salt water a couple of times daily. A small cottonball with a drop of clove or olive oil on it placed over the area can help sooth pain as well. Call your doctor/dentist Monday morning and let them know you were seen here. They may have other suggestions. Coding Level of Care Code ED [employer] Worker for Galilea Mcgill
== END 2024-07-07 03:38 | disposition home or self-care (01) ==
PROVIDERS: Emergency Provider Emergency Medicine; PCP Nurse Practitioner Family
DX: M27.3 Alveolitis of jaws (principal)
CPT/HCPCS: 99283

== ENCOUNTER 2024-07-26 02:24 | Emergency (ER) | payer MEDICAID, SELFPAY ==
[2024-07-26 02:27] VITALS: BP 127/84; PULSE 113; RESP 20; TEMP 36.5; O2SAT 95; BMI 34.8
[2024-07-26 02:38] VITALS: BP 127/84; PULSE 113; RESP 20; O2SAT 95
--- NOTE | 2024-07-26 03:07 | XRR_ITS ---
PROCEDURE INFORMATION: Exam: XR Chest Exam date and time: 07/26/2024 3:27 AM Age: 28 years old Clinical indication: Other: Fatigue and notes below TECHNIQUE: Imaging protocol: Radiologic exam of the chest. Views: 1 view. COMPARISON: CR XR chest 2V* [id number] 04/05/2024 10:53 PM FINDINGS: Lungs: No consolidation. Pleural spaces: No pleural effusion. No pneumothorax. Heart/Mediastinum: No cardiomegaly. Bones/joints: No acute findings. XR/XR chest 1V portable [id number] IMPRESSION: No acute chest findings.
--- NOTE | 2024-07-26 03:08 | ECG_ITS ---
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 Measurements Intervals [place] Rate: 91 P: 34 AK: 206 QRS: -34 QRSD: 100 T: 39 QT: 345 QTc: 425 Interpretive Statements SINUS RHYTHM LEFT AXIS DEVIATION [QRS AXIS < -30] EARLY REPOLARIZATION [ST ELEVATION WITH NORMALLY INFLECTED T-WAVE] Compared to ECG 04/02/2024 18:21:16 Right ventricular hypertrophy no longer present Electronically Signed On 07-27-2024 20:54:05 CDT by Liat Gonzales M.D. [id number]
[2024-07-26 03:11] LABS: Basophils # 0.1 10^3/uL (0.0-0.1); Basophils % 0.8 %; Eosinophils # 0.3 10^3/uL (0.0-0.8); Eosinophils % 1.7 %; Hematocrit 48.1 % (37-53); Lymphocytes # 3.9 10^3/uL (0.8-4.8); Lymphocytes % 24.1 %; Mean Corpuscular HGB Conc 33.9 g/dL (30-55); Mean Corpuscular Hemoglobin 28.9 pg (27-33); Mean Corpuscular Volume 85.3 fl (82-101); Mean Platelet Volume 8.8 fL (7.4-10.4); Monocytes % 6.1 %; Neutrophils # 10.86 10^3/uL (1.8-7.7); Neutrophils % 66.9 %; Nucleated Red Blood Cells % 0 %; Platelet Count 359 10^3/cmm (157-399); Red Blood Count 5.64 10^6/uL (3.85-5.65); Red Cell Distribution Width 13.2 % (12.1-15.1); White Blood Count 16.22 10^3/uL (3.29-11.43)
--- NOTE | 2024-07-26 03:19 | W.ED.GENADLT ---
HPI - General Adult General: Chief complaint: General Medical Stated complaint: dizzy light headed no energy Time Seen by Provider: 07/26/24 03:03 History of Present Illness: Patient presents to the ER with complaints of dizziness lack of energy nausea diarrhea he said this has been going on for over a month but has been getting worse here lately. Patient said he even had his gallbladder out to 1 time for the nausea vomiting and diarrhea but it did not help. Patient denies abdominal pain or any other localizing symptoms he just says he does not feel good all over from head to toe. Related Data Previous Rx's Medication Instructions Recorded diclofenac sodium 75 mg 75 mg PO BID PRN pain #60 tabs 06/25/24 tablet,delayed release hydrocodone 5 mg-acetaminophen 325 1 tab PO Q6H PRN pain #14 tabs 06/25/24 mg tablet Allergies Allergy/AdvReac Type Severity Reaction Status Date / Time Penicillins Allergy Mild ALGY-Rash Verified 07/07/24 00:53 diclofenac Allergy ADR-Itching Verified 07/07/24 00:53 Review of Systems General: Reports: 10 or more systems reviewed and unremarkable except in HPI and below PFSH ED PFSH: Medical History GERD (gastroesophageal reflux disease) No pertinent family history Surgical History Hx laparoscopic cholecystectomy 08/23/23 Dr Wyatt No pertinent past surgical history Social History Smoking and tobacco/nicotine status: never used tobacco/nicotine Alcohol intake: never Physical Exam Const: COMMON NORMALS: no acute distress, average body habitus, patient oriented x3, no limitations, healthy appearing, alert and well nourished HENMT: COMMON NORMALS: normocephalic, atraumatic, hearing grossly normal bilaterally, external ears normal, Normal external nose present and moist oral mucous membranes HEAD & SCALP: normocephalic and atraumatic NOSE: Normal external nose present EXTERNAL EAR: Yes external ears normal Neck/C-Spine: COMMON NORMALS: no JVD Chest: COMMONS NORMALS: normal inspection of the chest and normal palpation of entire chest wall Resp: COMMON NORMALS: normal respiratory effort, No retractions, No use of accessory muscles and clear to auscultation bilaterally AUSCULTATION: clear to auscultation bilaterally Cardio: COMMON NORMALS: no JVD, regular rate, regular rhythm, S1 normal heart sound present, S2 normal heart sound present, No gallops present (Cardio), No clicks present (Cardio), No murmurs present (Cardio) and No rub (Cardio) RATE: regular rate RHYTHM: regular rhythm HEART SOUNDS: S1 normal heart sound present and S2 normal heart sound present GI: COMMON NORMALS: Normal to inspection, nondistended, normoactive bowel sounds present, Soft to palpation, non-tender, No hepatosplenomegaly present and no masses PALPATION: Yes Soft to palpation and Yes No hepatosplenomegaly present Neuro: COMMON NORMALS: patient oriented x3 SENSORIUM/ORIENTATION: Yes alert Course Vital Signs: Vital signs: Vital Signs Temperature 97.7 F 07/26/24 02:27 Pulse Rate 94 07/26/24 04:31 Respiratory Rate 18 07/26/24 03:44 Blood Pressure 113/65 07/26/24 04:31 Pulse Oximetry 97 07/26/24 04:31 Oxygen Delivery Me thod Room Air 07/26/24 04:31 [facility] - General Adult Medical Decision Making Labwork was obtained which revealed elevated white count 16, dark yellow urine with a specific gravity 1.033 and 1+ ketones, these results was discussed with the patient is probably due to his dehydration from his chronic diarrhea. Patient was instructed to drink more fluid and follow-up with his PCP. Medical Records I reviewed the patient's medical records. Lab Data I reviewed the patient's lab results. 07/26/24 03:00 07/26/24 03:00 Radiology Impressions Chest X-Ray 07/26/24 03:07 IMPRESSION: No acute chest findings. Laboratory Results WBC 16.22 10^3/uL (3.29-11.43) H 07/26/24 03:00 RBC 5.64 10^6/uL (3.85-5.65) 07/26/24 03:00 Hgb 16.30 g/dL (11.27-16.99) 07/26/24 03:00 Hct 48.1 % (37-53) 07/26/24 03:00 MCV 85.3 fl (82-101) 07/26/24 03:00 MCH 28.9 pg (27-33) 07/26/24 03:00 MCHC 33.9 g/dL (30-55) 07/26/24 03:00 RDW 13.2 % (12.1-15.1) 07/26/24 03:00 Plt Count 359 10^3/cmm (157-399) 07/26/24 03:00 MPV 8.8 fL (7.4-10.4) 07/26/24 03:00 Neut % (Auto) 66.9 % 07/26/24 03:00 Lymph % (Auto) 24.1 % 07/26/24 03:00 Carter % (Auto) 6.1 % 07/26/24 03:00 Eos % (Auto) 1.7 % 07/26/24 03:00 Baso % (Auto) 0.8 % 07/26/24 03:00 Neut # (Auto) 10.86 10^3/uL (1.8-7.7) H 07/26/24 03:00 Lymph # (Auto) 3.9 10^3/uL (0.8-4.8) 07/26/24 03:00 Carter # (Auto) 1.0 10^3/uL (0.2-0.9) H 07/26/24 03:00 Eos # (Auto) 0.3 10^3/uL (0.0-0.8) 07/26/24 03:00 Baso # (Auto) 0.1 10^3/uL (0.0-0.1) 07/26/24 03:00 Nucleated RBC % (auto) 0 % 07/26/24 03:00 Nucleated RBCs # 0.0 /100WBC 07/26/24 03:00 Sodium 140 mmol/L (136-145) 07/26/24 03:00 Potassium 3.6 mmol/L (3.5-5.1) 07/26/24 03:00 Chloride 102 mmol/L (98-107) 07/26/24 03:00 Carbon Dioxide 26 mmol/L (22-29) 07/26/24 03:00 Anion Gap 15.6 (5-19) 07/26/24 03:00 BUN 15 mg/dL (6-20) 07/26/24 03:00 Creatinine 1.2 mg/dL (0.7-1.2) 07/26/24 03:00 GFR Calculation 72.1 mL/min (90-130) L 07/26/24 03:00 Glucose 105 mg/dL (65-115) 07/26/24 03:00 Calculated Osmolality 291 mOsm/kg (285-295) 07/26/24 03:00 Calcium 9.6 mg/dL (8.5-10.5) 07/26/24 03:00 Magnesium 2.0 mg/dL (1.7-2.3) 07/26/24 03:00 Total Bilirubin 1.2 mg/dL (0.15-1.2) 07/26/24 03:00 AST 21 U/L (0-40) 07/26/24 03:00 ALT 26 U/L (0-41) 07/26/24 03:00 Alkaline Phosphatase 80 U/L (40-130) 07/26/24 03:00 Total Protein 7.6 g/dL (6.6-8.7) 07/26/24 03:00 Albumin 4.7 g/dL (3.5-5.2) 07/26/24 03:00 Globulin 2.9 g/dL (1.3-4.6) 07/26/24 03:00 Urine Color Dark yellow (Yellow) A 07/26/24 03:00 Urine Appearance Clear (CLEAR) 07/26/24 03:00 Urine pH 5.0 (5-7) 07/26/24 03:00 Ur Specific [place] 1.033 (1.005-1.030) H 07/26/24 03:00 Urine Protein Trace (Negative) A 07/26/24 03:00 Urine Glucose (UA) Negative (Normal) 07/26/24 03:00 Urine Ketones 1+ (Negative) H 07/26/24 03:00 Urine Blood Negative (Negative) 07/26/24 03:00 Urine Nitrate Negative (Negative) 07/26/24 03:00 Urine Bilirubin Negative (Negative) 07/26/24 03:00 Urine Urobilinogen 1.0 mg/dL (Negative) 07/26/24 03:00 Ur Leukocyte Esterase Negative (Negative) 07/26/24 03:00 Urine RBC 0-2 /hpf (0-2) 07/26/24 03:00 Urine WBC 0-5 /hpf (0-5) 07/26/24 03:00 Ur Squamous Epith Cells 0-5 /hpf (0-5) 07/26/24 03:00 Amorphous Sediment Not Reportable 07/26/24 03:00 Urine Bacteria None seen /hpf (NONE) 07/26/24 03:00 Hyaline Casts 2.05 /lpf 07/26/24 03:00 Urine Opiates Screen Negative ng/mL (Negative) 07/26/24 03:00 Ur Barbiturates Screen Negative ng/mL (Negative) 07/26/24 03:00 Ur Phencyclidine Scrn Negative ng/mL (Negative) 07/26/24 03:00 Ur Amphetamines Screen Negative ng/mL (Negative) 07/26/24 03:00 U Benzodiazepines Scrn Negative ng/mL (Negative) 07/26/24 03:00 Urine Cocaine Screen Negative ng/mL (Negative) 07/26/24 03:00 U Marijuana (THC) Screen Negative ng/mL (Negative) 07/26/24 03:00 All radiology interpretation(s) finalized by discharge Discharge Plan Discharge Patient Disposition: Home Clinical Impression: Chronic diarrhea Fatigue Qualifiers: Fatigue type: chronic, unspecified Qualified Code(s): R53.82 - Chronic fatigue, unspecified Condition: Stable Prescriptions: No Action diclofenac sodium 75 mg tablet,delayed release (DR/EC) 75 mg PO BID PRN (Reason: pain) Qty: 60 0RF hydrocodone-acetaminophen 5-325 mg tablet 1 tab PO Q6H PRN (Reason: pain) Qty: 14 0RF Discharge Orders: Discharge ED (Routine); Ordered 07/26/24 Ordered By: Crow Marinelli Referrals: Sangeeta Kan FNP [Primary Care Provider] - 1 week Patient Instructions: Fatigue, Chronic Diarrhea (DC) Activity Restrictions/Additional Instructions: Your evaluation in the ER today showed your urine was pretty concentrated. Please try to drink more water otherwise your lab work was fairly benign. Please follow-up with your primary care physician within the next 7 days for further evaluation and treatment. Coding Level of Care Code ED Electrical Laboratory Technician for Galilea Mcgill
[2024-07-26 03:26] LABS: Alanine Aminotransferase 26 U/L (0-41); Albumin Level 4.7 g/dL (3.5-5.2); Alkaline Phosphatase 80 U/L (40-130); Anion Gap 15.6 (5-19); Aspartate Amino Transferase 21 U/L (0-40); Blood Urea Nitrogen 15 mg/dL (6-20); Calcium 9.6 mg/dL (8.5-10.5); Carbon Dioxide 26 mmol/L (22-29); Chloride 102 mmol/L (98-107); Creatinine Clr Calc Pharmacy 117.3656; Globulin 2.9 g/dL (1.3-4.6); Glomerular Filtration Rate 72.1 mL/min (90-130); Glucose 105 mg/dL (65-115); Osmolality Calculated 291 mOsm/kg (285-295); Potassium 3.6 mmol/L (3.5-5.1); Sodium 140 mmol/L (136-145); Total Bilirubin 1.2 mg/dL (0.15-1.2); Total Protein 7.6 g/dL (6.6-8.7)
[2024-07-26 03:41] LABS: Bilirubin Urine Negative (Negative); Blood Urine Negative (Negative); Glucose Urine UA Negative (Normal); Ketones Urine 1+ (Negative); Leukocyte Esterase Urine Negative (Negative); Nitrate Urine Negative (Negative); Protein Urine Trace (Negative); Urine Appearance Clear (CLEAR); Urine Color Dark Yellow (Yellow)
[2024-07-26 03:44] VITALS: BP 113/78; PULSE 93; RESP 18; O2SAT 93
[2024-07-26 03:46] LABS: Add Urine Microscopic? YES; Bacteria Urine None Seen /hpf; Hyaline Casts Urine 2.05 /lpf; RBC Urine 0-2 /hpf (0-2); Squamous Epithelial Cell Urine 0-5 /hpf (0-5); WBC Urine 0-5 /hpf (0-5)
[2024-07-26 03:49] LABS: Amphetamines Screen Urine Negative (Negative); Barbiturates Screen Urine Negative (Negative); Benzodiazepines Screen Urine Negative (Negative); Cocaine Screen Urine Negative (Negative); Opiate Screen Urine Negative (Negative); PCP Screen Urine Negative (Negative); THC Screen Urine Negative (Negative)
[2024-07-26 04:11] LABS: Specific Gravity, Urine 1.033 (1.005-1.030)
[2024-07-26 04:31] VITALS: BP 113/65; PULSE 94; O2SAT 97
[2024-07-26 04:47] VITALS: BP 129/73; PULSE 85; RESP 18; O2SAT 94
== END 2024-07-26 04:49 | disposition home or self-care (01) ==
PROVIDERS: Emergency Provider Emergency Medicine; PCP Nurse Practitioner Family
DX: R53.82 Chronic fatigue, unspecified (principal); K52.9 Noninfective gastroenteritis and colitis, unspecified
CPT/HCPCS: 71045; 80053; 80306; 81001; 83735; 85025; 93005; 99285

== ENCOUNTER 2024-08-11 02:54 | Emergency (ER) | payer MEDICAID, SELFPAY ==
[2024-08-11 02:57] VITALS: BP 142/83; PULSE 85; RESP 18; TEMP 36.6; O2SAT 99; BMI 34.4
--- NOTE | 2024-08-11 02:57 | ECG_ITS ---
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1995 Requested By: Jean Marie Baez Order Number: [id number] Miguel MD: STEPHANY QUINONEZ Measurements Intervals [place] Rate: 85 P: 34 CO: 186 QRS: -37 QRSD: 97 T: 46 QT: 344 QTc: 409 Interpretive Statements SINUS RHYTHM LEFT AXIS DEVIATION [QRS AXIS < -30] ST ELEVATION, PROBABLY EARLY REPOLARIZATION [ST ELEVATION WITH NORMALLY INFLECTED T-WAVE] Compared to ECG 07/26/2024 03:22:00 ST (T wave) deviation now present Electronically Signed On 08-13-2024 21:04:20 CDT by STEPHANY QUINONEZ [id number]
--- NOTE | 2024-08-11 03:15 | XRR_ITS ---
PROCEDURE INFORMATION: Exam: XR Chest Exam date and time: 08/11/2024 3:18 AM Age: 28 years old Clinical indication: Chest pressure; Patient HX: C/O chest pain TECHNIQUE: Imaging protocol: Radiologic exam of the chest. Views: 1 view. COMPARISON: CR (CHEST, ) 07/26/2024 3:27 AM FINDINGS: Lungs: Unremarkable. No consolidation. Pleural spaces: Unremarkable. No pleural effusion. No pneumothorax. Heart/Mediastinum: Unremarkable. No cardiomegaly. Bones/joints: Unremarkable. XR/XR chest 1V portable [id number] IMPRESSION: No acute findings.
[2024-08-11 03:20] LABS: Basophils # 0.1 10^3/uL (0.0-0.1); Basophils % 1.1 %; Eosinophils # 0.3 10^3/uL (0.0-0.8); Eosinophils % 2.7 %; Hematocrit 48.9 % (37-53); Lymphocytes # 4.6 10^3/uL (0.8-4.8); Lymphocytes % 40.3 %; Mean Corpuscular HGB Conc 33.7 g/dL (30-55); Mean Corpuscular Hemoglobin 29.3 pg (27-33); Mean Corpuscular Volume 86.9 fl (82-101); Mean Platelet Volume 8.9 fL (7.4-10.4); Monocytes # 0.7 10^3/uL (0.2-0.9); Monocytes % 6.4 %; Neutrophils # 5.64 10^3/uL (1.8-7.7); Neutrophils % 49.2 %; Nucleated Red Blood Cells % 0 %; Platelet Count 313 10^3/cmm (157-399); Red Blood Count 5.63 10^6/uL (3.85-5.65); Red Cell Distribution Width 13.6 % (12.1-15.1)
[2024-08-11] MEDS: ketorolac 30 mg/mL INJ IVP (03:22)
[2024-08-11 03:37] LABS: Troponin(5th) Baseline 13 ng/L (0-15)
[2024-08-11 03:38] LABS: Blood Urea Nitrogen 12 mg/dL (6-20); Calcium 9.1 mg/dL (8.5-10.5); Carbon Dioxide 25 mmol/L (22-29); Chloride 101 mmol/L (98-107); Creatinine Clr Calc Pharmacy 150.9663; Glomerular Filtration Rate 100.5 mL/min (90-130); Glucose 116 mg/dL (65-115); Osmolality Calculated 283 mOsm/kg (285-295); Sodium 136 mmol/L (136-145)
[2024-08-11 03:39] LABS: Anion Gap 13.9 (5-19); Potassium 3.9 mmol/L (3.5-5.1)
[2024-08-11 03:55] VITALS: BP 124/73; PULSE 87; O2SAT 99
--- NOTE | 2024-08-11 18:31 | W.ED.CHESTPA ---
HPI - Chest Pain General: Chief Complaint: Chest Pain Stated Complaint: CP Time Seen by Provider: 08/11/24 02:58 History of Present Illness: This patient is a 28-year-old white male who presents to the emergency department complaining of central chest pain that radiates through to the back. He states the pain is with movement of his torso and arms. No recent injury. No shortness of breath. Related Data Previous Rx's Medication Instructions Recorded diclofenac sodium 75 mg 75 mg PO BID PRN pain #60 tabs 06/25/24 tablet,delayed release hydrocodone 5 mg-acetaminophen 325 1 tab PO Q6H PRN pain #14 tabs 06/25/24 mg tablet Allergies Allergy/AdvReac Type Severity Reaction Status Date / Time Penicillins Allergy Mild ALGY-Rash Verified 07/07/24 00:53 diclofenac Allergy ADR-Itching Verified 07/07/24 00:53 Review of Systems General: Reports: 10 or more systems reviewed and unremarkable except in HPI and below Card: Reports: chest pain [facility] ED PFSH: Medical History GERD (gastroesophageal reflux disease) No pertinent family history Surgical History Hx laparoscopic cholecystectomy 08/23/23 Dr Wyatt No pertinent past surgical history Social History Smoking and tobacco/nicotine status: never used tobacco/nicotine Alcohol intake: never Physical Exam Const: COMMON NORMALS: no acute distress, patient oriented x3 and no limitations GENERAL APPEARANCE: cooperative and comfortable HENMT: COMMON NORMALS: normocephalic, atraumatic, Normal nasal mucous membranes and turbinates present, moist oral mucous membranes and oropharynx normal HEAD & SCALP: normal to inspection, normocephalic and atraumatic FACE & SINUS: normal facial exam NOSE: Normal nasal mucous membranes and turbinates present Eye: COMMON NORMALS: Equal, round and reactive pupils present, EOMs intact bilaterally and conjunctivae normal GENERAL EYE: appearance normal, both eyes and all related structures CONJUNCTIVA: Yes conjunctivae normal PUPIL: Yes Equal, round and reactive pupils present Neck/C-Spine: COMMON NORMALS: supple and no JVD Chest: COMMONS NORMALS: normal inspection of the chest Resp: COMMON NORMALS: normal respiratory effort and clear to auscultation bilaterally AUSCULTATION: clear to auscultation bilaterally Cardio: COMMON NORMALS: no JVD, regular rate, regular rhythm, No gallops present (Cardio), No murmurs present (Cardio) and No rub (Cardio) RATE: regular rate RHYTHM: regular rhythm OTHER: Palpation of the sternal area reproduces the patient's discomfort. GI: COMMON NORMALS: Normal to inspection, nondistended, normoactive bowel sounds present, Soft to palpation and non-tender AUSCULTATION: Yes normoactive bowel sounds PALPATION: Yes Soft to palpation : COMMON NORMALS: Yes no CVA tenderness BLADDER/KIDNEY EXAM: Yes no CVA tenderness Back/Pelvis: COMMON NORMALS: no CVA tenderness and thoracic and lumbar spine normal to inspection Extremity: COMMON NORMALS: normal to inspection Neuro: COMMON NORMALS: patient oriented x3 and CN's II-XII intact bilaterally Psych: COMMON NORMALS: mental status grossly normal, Normal thought process present and cooperative THOUGHT PROCESS: Normal thought process present Skin: COMMON NORMALS: no rashes or lesions noted, turgor normal and no jaundice GENERAL SKIN EXAM: no rashes or lesions noted and turgor normal Course Vital Signs: Vital signs: Vital Signs Temperature 97.9 F 08/11/24 02:57 Pulse Rate 87 08/11/24 03:55 Respiratory Rate 18 08/11/24 02:57 Blood Pressure 124/73 08/11/24 03:55 Pulse Oximetry 99 08/11/24 03:55 Oxygen Delivery Me thod Room Air 08/11/24 02:57 MDM - Chest Pain Medical Decision Making CBC revealed a white blood cell count of 11.5. BMP was normal. Troponin was 13. EKG was normal sinus rhythm with no ST segment abnormalities. Chest x-ray was normal. Patient was given Toradol. This did help. This appears to be chest wall pain. Recommended he take the diclofenac if he still has that or ibuprofen. Follow-up with his primary care provider next week for recheck. He was discharged in stable condition. Lab Data 08/11/24 03:13 08/11/24 03:13 Radiology Impressions Chest X-Ray 08/11/24 03:15 IMPRESSION: No acute findings. Laboratory Results WBC 11.50 10^3/uL (3.29-11.43) H 08/11/24 03:13 RBC 5.63 10^6/uL (3.85-5.65) 08/11/24 03:13 Hgb 16.50 g/dL (11.27-16.99) 08/11/24 03:13 Hct 48.9 % (37-53) 08/11/24 03:13 MCV 86.9 fl (82-101) 08/11/24 03:13 MCH 29.3 pg (27-33) 08/11/24 03:13 MCHC 33.7 g/dL (30-55) 08/11/24 03:13 RDW 13.6 % (12.1-15.1) 08/11/24 03:13 Plt Count 313 10^3/cmm (157-399) 08/11/24 03:13 MPV 8.9 fL (7.4-10.4) 08/11/24 03:13 Neut % (Auto) 49.2 % 08/11/24 03:13 Lymph % (Auto) 40.3 % 08/11/24 03:13 Butler % (Auto) 6.4 % 08/11/24 03:13 Eos % (Auto) 2.7 % 08/11/24 03:13 Baso % (Auto) 1.1 % 08/11/24 03:13 Neut # (Auto) 5.64 10^3/uL (1.8-7.7) 08/11/24 03:13 Lymph # (Auto) 4.6 10^3/uL (0.8-4.8) 08/11/24 03:13 Butler # (Auto) 0.7 10^3/uL (0.2-0.9) 08/11/24 03:13 Eos # (Auto) 0.3 10^3/uL (0.0-0.8) 08/11/24 03:13 Baso # (Auto) 0.1 10^3/uL (0.0-0.1) 08/11/24 03:13 Nucleated RBC % (auto) 0 % 08/11/24 03:13 Nucleated RBCs # 0.0 /100WBC 08/11/24 03:13 Sodium 136 mmol/L (136-145) 08/11/24 03:13 Potassium 3.9 mmol/L (3.5-5.1) 08/11/24 03:13 Chloride 101 mmol/L (98-107) 08/11/24 03:13 Carbon Dioxide 25 mmol/L (22-29) 08/11/24 03:13 Anion Gap 13.9 (5-19) 08/11/24 03:13 BUN 12 mg/dL (6-20) 08/11/24 03:13 Creatinine 0.9 mg/dL (0.7-1.2) 08/11/24 03:13 GFR Calculation 100.5 mL/min (90-130) 08/11/24 03:13 Glucose 116 mg/dL (65-115) H 08/11/24 03:13 Calculated Osmolality 283 mOsm/kg (285-295) L 08/11/24 03:13 Calcium 9.1 mg/dL (8.5-10.5) 08/11/24 03:13 Troponin T Baseline 13 ng/L (0-15) 08/11/24 03:13 All radiology interpretation(s) finalized by discharge Discharge Plan Discharge Patient Disposition: Home Clinical Impression: Chest wall pain Condition: Stable Prescriptions: No Action diclofenac sodium 75 mg tablet,delayed release (DR/EC) 75 mg PO BID PRN (Reason: pain) Qty: 60 0RF hydrocodone-acetaminophen 5-325 mg tablet 1 tab PO Q6H PRN (Reason: pain) Qty: 14 0RF Discharge Orders: Discharge ED (Routine); Ordered 08/11/24 Ordered By: Jean Marie Baez Referrals: Sangeeta Kan FNP [Primary Care Provider] - Patient Instructions: Chest Pain - Chest Wall Coding Level of Care Code ED Enrollment Specialist for Rozg Artem
== END 2024-08-11 03:56 | disposition home or self-care (01) ==
PROVIDERS: Emergency Provider Emergency Medicine; PCP Nurse Practitioner Family
DX: R07.89 Other chest pain (principal)
CPT/HCPCS: 71045; 80048; 84484; 85025; 93005; 96374; 99285; J1885

== ENCOUNTER 2024-10-10 01:22 | Emergency (ER) | payer MEDICAID, SELFPAY ==
[2024-10-10 01:28] VITALS: BP 142/76; PULSE 92; RESP 16; TEMP 36.6; O2SAT 96; BMI 38.5
--- NOTE | 2024-10-10 01:43 | XRR_ITS ---
PROCEDURE INFORMATION: Exam: XR Chest Exam date and time: 10/10/2024 2:19 AM Age: 28 years old Clinical indication: Shortness of breath TECHNIQUE: Imaging protocol: Radiologic exam of the chest. Views: 1 view. COMPARISON: CR XR chest 1V portable [id number] 08/11/2024 3:18 AM FINDINGS: Lungs: Unremarkable. No consolidation. Pleural spaces: Unremarkable. No pleural effusion. No pneumothorax. Heart/Mediastinum: Unremarkable. No cardiomegaly. Bones/joints: Unremarkable. XR/XR chest 1V portable [id number] IMPRESSION: No acute findings.
[2024-10-10 02:55] LABS: Basophils # 0.1 10^3/uL (0.0-0.1); Basophils % 0.8 %; Eosinophils # 0.3 10^3/uL (0.0-0.8); Eosinophils % 2.3 %; Hematocrit 48.7 % (37-53); Lymphocytes # 4.4 10^3/uL (0.8-4.8); Lymphocytes % 29.7 %; Mean Corpuscular HGB Conc 33.5 g/dL (30-55); Mean Corpuscular Hemoglobin 29.2 pg (27-33); Mean Corpuscular Volume 87.1 fl (82-101); Monocytes # 0.8 10^3/uL (0.2-0.9); Monocytes % 5.3 %; Neutrophils # 9.15 10^3/uL (1.8-7.7); Neutrophils % 61.5 %; Nucleated Red Blood Cells % 0 %; Platelet Count 366 10^3/cmm (157-399); Red Blood Count 5.59 10^6/uL (3.85-5.65); Red Cell Distribution Width 13.6 % (12.1-15.1); White Blood Count 14.88 10^3/uL (3.29-11.43)
[2024-10-10 03:14] LABS: Alanine Aminotransferase 22 U/L (0-41); Albumin Level 4.5 g/dL (3.5-5.2); Alkaline Phosphatase 84 U/L (40-130); Aspartate Amino Transferase 23 U/L (0-40); Blood Urea Nitrogen 10 mg/dL (6-20); Calcium 9.8 mg/dL (8.5-10.5); Carbon Dioxide 27 mmol/L (22-29); Chloride 102 mmol/L (98-107); Creatinine Clr Calc Pharmacy 135.2456; Globulin 2.7 g/dL (1.3-4.6); Glucose 107 mg/dL (65-115); Osmolality Calculated 292 mOsm/kg (285-295); Sodium 141 mmol/L (136-145); Total Bilirubin 0.8 mg/dL (0.15-1.2); Total Protein 7.2 g/dL (6.6-8.7)
== END 2024-10-10 03:55 | disposition left against medical advice (07) ==
PROVIDERS: Emergency Medicine; Emergency Provider Family Medicine; PCP Nurse Practitioner Family
DX: Z53.21 Procedure and treatment not carried out due to patient leaving prior to being seen by health care provider (principal)
CPT/HCPCS: 36415; 71045; 80053; 85025

== ENCOUNTER 2024-10-15 00:12 | Emergency (ER) | payer MEDICAID, SELFPAY ==
[2024-10-15] VITALS (16 sets, daily range): BP systolic 100–135; BP diastolic 66–81; PULSE 66–92; RESP 12–24; TEMP 36.4; O2SAT 90–98; BMI 36.6
--- NOTE | 2024-10-15 01:05 | XRR_ITS ---
PROCEDURE INFORMATION: Exam: XR Chest Exam date and time: 10/15/2024 1:24 AM Age: 28 years old Clinical indication: Cough and shortness of breath; Additional info: Cough SOB TECHNIQUE: Imaging protocol: Radiologic exam of the chest. Views: 1 view. COMPARISON: CR (CHEST, ) 10/10/2024 2:19 AM FINDINGS: Lungs: No CHF/pulmonary edema. Visible lungs appear essentially clear. Pleural spaces: No visible pneumothorax. No definite pleural fluid. Heart/Mediastinum: Heart size is within normal limits. Bones/joints: No significant acute finding. XR/XR chest 1V portable [id number] IMPRESSION: 1. Essentially unremarkable single view chest. 2. Other details discussed above.
--- NOTE | 2024-10-15 01:24 | ED_ITS ---
HPI - Back Pain/Injury 2 General: Chief Complaint: Back Pain/Injury Stated Complaint: injured back and across upper abd Time Seen by Provider: 10/15/24 00:28 History of Present Illness: 28-year-old male patient with upper abdo jonathan pain radiating into his back for the last month or so he says. It has been on and off. He says he has been doing a lot of work on a house, and lifting reaching and pulling seems to make the pain worse. He is developed a cough for the last 10 days or so with some sputum production. He notes the pain worsens to his epigastrium when he coughs. He denies fever. No diarrhea. No vomiting. He has a history of cholecystectomy. Related Data Previous Rx's Medication Instructions Recorded doxycycline hyclate 100 mg tablet 100 mg PO BID 7 days #14 tabs 10/15/24 hydrocodone 5 mg-acetaminophen 325 1 tab PO Q6H PRN pain #10 tabs 10/15/24 mg tablet ketorolac 10 mg tablet 10 mg PO TID PRN pain #10 tabs 10/15/24 Allergies Allergy/AdvReac Type Severity Reaction Status Date / Time Penicillins Allergy Mild ALGY-Rash Verified 10/15/24 00:20 diclofenac Allergy ADR-Itching Verified 10/15/24 00:20 PFSH ED 2 PFSH: Medical History GERD (gastroesophageal reflux disease) No pertinent family history Surgical History Hx laparoscopic cholecystectomy 08/23/23 Dr Wyatt No pertinent past surgical history Social History Smoking and tobacco/nicotine status: never used tobacco/nicotine Alcohol intake: never Physical Exam 2 Const: COMMON NORMALS: no acute distress GENERAL APPEARANCE: cooperative; not ill appearing and not frail appearing HENMT: COMMON NORMALS: normocephalic, atraumatic and Normal external nose present HEAD & SCALP: normocephalic and atraumatic FACE & SINUS: normal facial exam and face symmetric NOSE: Normal external nose present Eye: COMMON NORMALS: Equal, round and reactive pupils present and EOMs intact bilaterally PUPIL: Yes Equal, round and reactive pupils present Neck/C-Spine: GENERAL: Yes trachea midline Chest: CHEST: Yes Symmetrical chest wall rise Resp: COMMON NORMALS: normal respiratory effort, No retractions, No use of accessory muscles and clear to auscultation bilaterally AUSCULTATION: clear to auscultation bilaterally Cardio: COMMON NORMALS: regular rate and regular rhythm RATE: regular rate RHYTHM: regular rhythm GI: COMMON NORMALS: Normal to inspection, nondistended, normoactive bowel sounds present PALPATION: Yes Tenderness to palpation present (GI) (Epigastric) Extremity: COMMON NORMALS: no pedal edema Neuro: CHRISS COMA SCALE: document GCS findings [place] coma scale eye opening: Spontaneous [place] coma scale verbal response: Orientated Chriss coma scale motor response: Obey commands [place] coma scale total score: 15 S ENSORY EXAM: Yes extremities (intact) Psych: COMMON NORMALS: speech normal SPEECH: Yes normal speech Skin: COMMON NORMALS: no rashes or lesions noted GENERAL SKIN EXAM: no rashes or lesions noted Course 2 Vital Signs: Vital signs: Vital Signs Temperature 97.5 F L 10/15/24 00:15 Pulse Rate 66 10/15/24 04:05 Respiratory Rate 15 10/15/24 04:05 Blood Pressure 108/69 10/15/24 04:05 Pulse Oximetry 96 10/15/24 04:05 Oxygen Delivery Me thod Room Air 10/15/24 00:15 MDM - Back Pain/Injury Medical Decision Making Patient is tender in the epigastrium. His vital signs are normal. Hemoglobin is 15 white blood cell count is 9. BMP is not remarkable. Liver enzymes are normal. Lipase is minimally elevated. However, his CRP is only 4.5. Chest x- ray is not remarkable. Pain is improved after GI cocktail and Toradol here. Morphine seem to worsen his pain he believes. Because his pain is epigastric, and he has a minimal elevation in lipase, which may or may not be related, he will be placed on a liquid diet for 2 days at least, to advance diet as tolerated. He will also be treated for bronchitis, as he has a productive cough. Outpatient follow-up. He needs to ensure that his lipase goes back to normal. He knows to return for any worsening symptoms despite treatment. Labs 10/15/24 01:28 10/15/24 01:28 Radiology Impressions Chest X-Ray 10/15/24 01:05 IMPRESSION: 1. Essentially unremarkable single view chest. 2. Other details discussed above. Laboratory Results WBC 8.88 10^3/uL (3.29-11.43) 10/15/24 01:28 RBC 5.22 10^6/uL (3.85-5.65) 10/15/24 01:28 Hgb 15.10 g/dL (11.27-16.99) 10/15/24 01:28 Hct 45.5 % (37-53) 10/15/24 01:28 MCV 87.2 fl (82-101) 10/15/24 01:28 MCH 28.9 pg (27-33) 10/15/24 01: MCHC 33.2 g/dL (30-55) 10/15/24 01: RDW 13.6 % (12.1-15.1) 10/15/24 01:28 Plt Count 324 10^3/cmm (157-399) 10/15/24 01:28 MPV 9.5 fL (7.4-10.4) 10/15/24 01:28 Neut % (Auto) 46.5 % 10/15/24 01:28 Lymph % (Auto) 41.9 % 10/15/24 01:28 Millard % (Auto) 5.9 % 10/15/24 01:28 Eos % (Auto) 3.8 % 10/15/24 01: Baso % (Auto) 1.6 % 10/15/24 01:28 Neut # (Auto) 4.13 10^3/uL (1.8-7.7) 10/15/24 01:28 Lymph # (Auto) 3.7 10^3/uL (0.8-4.8) 10/15/24 01:28 Millard # (Auto) 0.5 10^3/uL (0.2-0.9) 10/15/24 01:28 Eos # (Auto) 0.3 10^3/uL (0.0-0.8) 10/15/24 01:28 Baso # (Auto) 0.1 10^3/uL (0.0-0.1) 10/15/24 01:28 Nucleated RBC % (auto) 0 % 10/15/24 01:28 Nucleated RBCs # 0.0 /100WBC 10/15/24 01:28 Sodium 141 mmol/L (136-145) 10/15/24 01:28 Potassium 3.9 mmol/L (3.5-5.1) 10/15/24 01:28 Chloride 106 mmol/L (98-107) 10/15/24 01:28 Carbon Dioxide 24 mmol/L (22-29) 10/15/24 01:28 Anion Gap 14.9 (5-19) 10/15/24 01:28 BUN 12 mg/dL (6-20) 10/15/24 01:28 Creatinine 1.0 mg/dL (0.7-1.2) 10/15/24 01:28 GFR Calculation 89.0 mL/min (90-130) L 10/15/24 01:28 Glucose 122 mg/dL (65-115) H 10/15/24 01:28 Calculated Osmolality 293 mOsm/kg (285-295) 10/15/24 01:28 Calcium 9.0 mg/dL (8.5-10.5) 10/15/24 01:28 Total Bilirubin 0.4 mg/dL (0.15-1.2) 10/15/24 01:28 AST 18 U/L (0-40) 10/15/24 01:28 ALT 21 U/L (0-41) 10/15/24 01:28 Alkaline Phosphatase 77 U/L (40-130) 10/15/24 01:28 C-Reactive Protein 4.5 mg/L (0.0-4.9) 10/15/24 01:28 Total Protein 6.4 g/dL (6.6-8.7) L 10/15/24 01:28 Albumin 4.1 g/dL (3.5-5.2) 10/15/24 01:28 Globulin 2.3 g/dL (1.3-4.6) 10/15/24 01:28 Lipase 71 U/L (13-60) H 10/15/24 01:28 Urine Color Yellow (Yellow) 10/15/24 02:54 Urine Appearance Turbid (CLEAR) A 10/15/24 02:54 Urine pH 7.5 (5-7) 10/15/24 02:54 Ur Specific Rudyard 1.027 (1.005-1.030) 10/15/24 02:54 Urine Protein Trace (Negative) A 10/15/24 02:54 Urine Glucose (UA) Negative (Normal) 10/15/24 02:54 Urine Ketones Trace (Negative) 10/15/24 02:54 Urine Blood Negative (Negative) 10/15/24 02:54 Urine Nitrate Negative (Negative) 10/15/24 02:54 Urine Bilirubin Negative (Negative) 10/15/24 02:54 Urine Urobilinogen 1.0 mg/dL (Negative) 10/15/24 02:54 Ur Leukocyte Esterase Negative (Negative) 10/15/24 02:54 Urine RBC 0-2 /hpf (0-2) 10/15/24 02:54 Urine WBC 0-5 /hpf (0-5) 10/15/24 02:54 Ur Squamous Epith Cells 0-5 /hpf (0-5) 10/15/24 02:54 Amorphous Sediment Not Reportable 10/15/24 02:54 Urine Bacteria None seen /hpf (NONE) 10/15/24 02:54 Hyaline Casts 0-4 /lpf H 10/15/24 02:54 All radiology interpretation(s) finalized by discharge Discharge Plan Discharge Patient Disposition: Home Clinical Impression: Acute bronchitis, Acute pancreatitis Condition: Stable Prescriptions: New ketorolac 10 mg tablet 10 mg PO TID PRN (Reason: pain) Qty: 10 0RF doxycycline hyclate 100 mg tablet 100 mg PO BID 7 Days Qty: 14 0RF Continued hydrocodone-acetaminophen 5-325 mg tablet 1 tab PO Q6H PRN (Reason: pain) Qty: 10 0RF Discontinued diclofenac sodium 75 mg tablet,delayed release (DR/EC) 75 mg PO BID PRN (Reason: pain) Qty: 60 0RF Discharge Orders: Discharge ED (Routine); Ordered 10/15/24 Ordered By: Bhanu Castaneda Referrals: Sangeeta Kan FNP [Primary Care Provider] - 4-7 days Patient Instructions: Pancreatitis (ED), Acute Bronchitis (ED), Opioid Safety, Pain Management Activity Restrictions/Additional Instructions: Follow a liquid diet for the next 48 hours at least, or until your pain improves significantly. You may advance your diet as your pain improves. Antibiotics as directed for the bronchitis. Take pain medication as needed for severe pain. Alternate them. Follow-up with your doctor. You will need repeat blood testing at some point to ensure that your pancreas enzymes are back to normal. Return for increasing pain despite treatment, vomiting liquids or medications, fever greater than 100 ?F, other concerning symptoms. Coding Level of Care Code ED Tractor Trailer Driver for Galilea Mcgill
[2024-10-15] MEDS: ondansetron 2 mg/ML SDV 2 mL 4 MG IVP (01:32)
[2024-10-15] MEDS: morphine 4 mg/mL SDV 1 mL IVP (01:33)
[2024-10-15] MEDS: lidocaine 2% viscous 15 ML, aluminum-mag hydrox-simethicon 30 ML, sucralfate oral liq 1 GM PO (01:36)
[2024-10-15 01:49] LABS: Basophils # 0.1 10^3/uL (0.0-0.1); Basophils % 1.6 %; Eosinophils # 0.3 10^3/uL (0.0-0.8); Eosinophils % 3.8 %; Hematocrit 45.5 % (37-53); Lymphocytes # 3.7 10^3/uL (0.8-4.8); Lymphocytes % 41.9 %; Mean Corpuscular HGB Conc 33.2 g/dL (30-55); Mean Corpuscular Hemoglobin 28.9 pg (27-33); Mean Corpuscular Volume 87.2 fl (82-101); Mean Platelet Volume 9.5 fL (7.4-10.4); Monocytes # 0.5 10^3/uL (0.2-0.9); Monocytes % 5.9 %; Neutrophils # 4.13 10^3/uL (1.8-7.7); Neutrophils % 46.5 %; Nucleated Red Blood Cells % 0 %; Platelet Count 324 10^3/cmm (157-399); Red Blood Count 5.22 10^6/uL (3.85-5.65); Red Cell Distribution Width 13.6 % (12.1-15.1); White Blood Count 8.88 10^3/uL (3.29-11.43)
[2024-10-15 02:05] LABS: Alanine Aminotransferase 21 U/L (0-41); Albumin Level 4.1 g/dL (3.5-5.2); Alkaline Phosphatase 77 U/L (40-130); Anion Gap 14.9 (5-19); Aspartate Amino Transferase 18 U/L (0-40); Blood Urea Nitrogen 12 mg/dL (6-20); C Reactive Protein 4.5 mg/L (0.0-4.9); Carbon Dioxide 24 mmol/L (22-29); Chloride 106 mmol/L (98-107); Creatinine Clr Calc Pharmacy 140.1033; Globulin 2.3 g/dL (1.3-4.6); Glucose 122 mg/dL (65-115); Lipase 71 U/L (13-60); Osmolality Calculated 293 mOsm/kg (285-295); Potassium 3.9 mmol/L (3.5-5.1); Sodium 141 mmol/L (136-145); Total Bilirubin 0.4 mg/dL (0.15-1.2); Total Protein 6.4 g/dL (6.6-8.7)
[2024-10-15] MEDS: ketorolac 30 mg/mL INJ IVP (02:29)
[2024-10-15 03:22] LABS: Bilirubin Urine Negative (Negative); Blood Urine Negative (Negative); Glucose Urine UA Negative (Normal); Ketones Urine Trace (Negative); Leukocyte Esterase Urine Negative (Negative); Nitrate Urine Negative (Negative); Protein Urine Trace (Negative); Specific Gravity, Urine 1.027 (1.005-1.030); Urine Appearance Turbid (CLEAR); Urine Color Yellow (Yellow); pH Urine 7.5 (5-7)
[2024-10-15 03:27] LABS: Add Urine Microscopic? YES; Bacteria Urine None Seen /hpf; Hyaline Casts Urine 0-4 /lpf; RBC Urine 0-2 /hpf (0-2); Squamous Epithelial Cell Urine 0-5 /hpf (0-5); WBC Urine 0-5 /hpf (0-5)
[2024-10-15] MEDS: dexamethasone 4 mg Tablet 10 MG PO (03:53)
== END 2024-10-15 04:16 | disposition home or self-care (01) ==
PROVIDERS: Emergency Provider Emergency Medicine; PCP Nurse Practitioner Family
DX: J20.9 Acute bronchitis, unspecified (principal); K85.90 Acute pancreatitis without necrosis or infection, unspecified
CPT/HCPCS: 36415; 71045; 80053; 81001; 83690; 85025; 86140; 96374; 96375; 99284; J1885; J2270; J2405; J8540

== ENCOUNTER 2024-11-04 01:10 | Emergency (ER) | payer MEDICAID, SELFPAY ==
[2024-11-04 01:12] VITALS: BP 138/83; PULSE 86; RESP 16; TEMP 36.3; O2SAT 97
[2024-11-04 03:03] VITALS: BP 147/80; PULSE 106; O2SAT 94
--- NOTE | 2024-11-04 03:38 | ECG_ITS ---
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 Measurements Intervals [place] Rate: 74 P: 27 [place]: 202 QRS: -37 QRSD: 97 T: 39 QT: 354 QTc: 394 Interpretive Statements SINUS RHYTHM LEFT AXIS DEVIATION [QRS AXIS < -30] POSSIBLE RIGHT VENTRICULAR CONDUCTION DELAY [RSR (QR) IN V1/V2] EARLY REPOLARIZATION [ST ELEVATION WITH NORMALLY INFLECTED T-WAVE] Compared to ECG 08/11/2024 02:57:23 ST (T wave) deviation no longer present Electronically Signed On 11-05-2024 23:52:13 METAL FURNITURE POLISHER by Liat Gonzales M.D. [email or web address]
[2024-11-04 03:58] LABS: Basophils # 0.1 10^3/uL (0.0-0.1); Eosinophils # 0.3 10^3/uL (0.0-0.8); Eosinophils % 2.7 %; Hematocrit 46.9 % (37-53); Lymphocytes # 4.1 10^3/uL (0.8-4.8); Lymphocytes % 35.8 %; Mean Corpuscular HGB Conc 33.3 g/dL (30-55); Mean Corpuscular Hemoglobin 28.4 pg (27-33); Mean Corpuscular Volume 85.4 fl (82-101); Monocytes # 0.7 10^3/uL (0.2-0.9); Monocytes % 6.1 %; Neutrophils # 6.25 10^3/uL (1.8-7.7); Nucleated Red Blood Cells % 0 %; Platelet Count 344 10^3/cmm (157-399); Red Blood Count 5.49 10^6/uL (3.85-5.65); Red Cell Distribution Width 13.6 % (12.1-15.1); White Blood Count 11.56 10^3/uL (3.29-11.43)
[2024-11-04] MEDS: ondansetron 2 mg/ML SDV 2 mL 4 MG IVP (03:59)
[2024-11-04] MEDS: ketorolac 30 mg/mL INJ IVP (04:00)
[2024-11-04 04:02] VITALS: BP 122/71; PULSE 77; O2SAT 95
[2024-11-04 04:11] LABS: Bilirubin Urine Negative (Negative); Blood Urine Negative (Negative); Glucose Urine UA Negative (Normal); Ketones Urine Trace (Negative); Leukocyte Esterase Urine Negative (Negative); Nitrate Urine Negative (Negative); Protein Urine Negative (Negative); Specific Gravity, Urine 1.019 (1.005-1.030); Urine Appearance Clear (CLEAR); Urine Color Yellow (Yellow); pH Urine 5.5 (5-7)
[2024-11-04 04:13] LABS: Add Urine Microscopic? YES; Bacteria Urine None Seen /hpf; RBC Urine 0-2 /hpf (0-2); Squamous Epithelial Cell Urine 0-5 /hpf (0-5); WBC Urine 0-5 /hpf (0-5)
[2024-11-04 04:19] LABS: Alanine Aminotransferase 22 U/L (0-41); Albumin Level 4.3 g/dL (3.5-5.2); Alkaline Phosphatase 78 U/L (40-130); Anion Gap 13.7 (5-19); Aspartate Amino Transferase 16 U/L (0-40); Blood Urea Nitrogen 9 mg/dL (6-20); C Reactive Protein 7.5 mg/L (0.0-4.9); Calcium 9.5 mg/dL (8.5-10.5); Carbon Dioxide 26 mmol/L (22-29); Chloride 102 mmol/L (98-107); Creatinine Clr Calc Pharmacy 173.3651; Globulin 2.3 g/dL (1.3-4.6); Glomerular Filtration Rate 115.1 mL/min (90-130); Glucose 95 mg/dL (65-115); Lipase 45 U/L (13-60); Osmolality Calculated 284 mOsm/kg (285-295); Potassium 3.7 mmol/L (3.5-5.1); Sodium 138 mmol/L (136-145); Total Bilirubin 0.7 mg/dL (0.15-1.2); Total Protein 6.6 g/dL (6.6-8.7)
--- NOTE | 2024-11-04 04:31 | ED_ITS ---
HPI - Abdominal Pain 2 General: Chief Complaint: Abdominal Pain Stated Complaint: Upper ADB Pain History of Present Illness: 28-year-old male patient complaining of upper abdominal pain. He points to the left upper quadrant and epigastrium. He says it is very tender to touch. He has had some nausea. No vomiting. No fever. No diarrhea. He had similar pains on the evaluation last month in which his lipase was slightly elevated. He did not follow-up and make sure that his lipase came back to normal. Related Data Previous Rx's Medication Instructions Recorded hydrocodone 5 mg-acetaminophen 325 1 tab PO Q6H PRN pain #10 tabs 10/15/24 mg tablet ketorolac 10 mg tablet 10 mg PO TID PRN pain #10 tabs 10/15/24 lansoprazole 30 mg capsule,delayed 30 mg PO DAILY #30 caps 11/04/24 release (Prevacid) Allergies Allergy/AdvReac Type Severity Reaction Status Date / Time Penicillins Allergy Mild ALGY-Rash Verified 11/04/24 01:18 diclofenac Allergy ADR-Itching Verified 11/04/24 01:18 PFSH ED 2 PFSH: Medical History GERD (gastroesophageal reflux disease) No pertinent family history Surgical History Hx laparoscopic cholecystectomy 08/23/23 Dr Wyatt No pertinent past surgical history Social History Smoking and tobacco/nicotine status: never used tobacco/nicotine Alcohol intake: never Physical Exam 2 Const: COMMON NORMALS: no acute distress GENERAL APPEARANCE: cooperative; not ill appearing and not frail appearing HENMT: COMMON NORMALS: normocephalic, atraumatic and Normal external nose present HEAD & SCALP: normocephalic and atraumatic FACE & SINUS: normal facial exam and face symmetric NOSE: Normal external nose present Eye: COMMON NORMALS: Equal, round and reactive pupils present and EOMs intact bilaterally PUPIL: Yes Equal, round and reactive pupils present Neck/C-Spine: GENERAL: Yes trachea midline Chest: CHEST: Yes Symmetrical chest wall rise Resp: COMMON NORMALS: normal respiratory effort, No retractions, No use of accessory muscles and clear to auscultation bilaterally AUSCULTATION: clear to auscultation bilaterally Cardio: COMMON NORMALS: regular rate and regular rhythm RATE: regular rate RHYTHM: regular rhythm GI: COMMON NORMALS: Normal to inspection, nondistended, normoactive bowel sounds present OTHER: Point tenderness to the anterior abdominal wall just below the rib cage in the left upper quadrant. This is significant and superficial. Generalized abdominal tenderness otherwise worst in the epigastrium. Extremity: COMMON NORMALS: no pedal edema Neuro: CHRISS COMA SCALE: document GCS findings Chriss coma scale eye opening: Spontaneous Chriss coma scale verbal response: Orientated [place] coma scale motor response: Obey commands Chriss coma scale total score: 15 S ENSORY EXAM: Yes extremities (intact) Psych: COMMON NORMALS: speech normal SPEECH: Yes normal speech Skin: COMMON NORMALS: no rashes or lesions noted GENERAL SKIN EXAM: no rashes or lesions noted Course 2 Vital Signs: Vital signs: Vital Signs Temperature 97.4 F L 11/04/24 01:12 Pulse Rate 82 11/04/24 05:14 Respiratory Rate 16 11/04/24 01:12 Blood Pressure 118/58 11/04/24 05:14 Pulse Oximetry 96 11/04/24 05:14 Oxygen Delivery Me thod Room Air 11/04/24 01:12 MDM - Abdominal Pain Medical Decision Making Mr. Bangura has focal superficial left upper abdominal pain. He also has some generalized epigastric tenderness. His white blood cell count is 11. His CRP is 7. Other laboratory is normal including his lipase. He does not have a gallbladder. Pain is more likely abdominal wall strain related then intra- abdominal given his exam. However, he has had some epigastric tenderness and reflux symptoms. Will be treated with lansoprazole. Outpatient follow-up. Return for worsening symptoms Lab Data 11/04/24 03:49 11/04/24 03:49 Labs/Radiology: Laboratory Results WBC 11.56 10^3/uL (3.29-11.43) H 11/04/24 03:49 RBC 5.49 10^6/uL (3.85-5.65) 11/04/24 03:49 Hgb 15.60 g/dL (11.27-16.99) 11/04/24 03:49 Hct 46.9 % (37-53) 11/04/24 03:49 MCV 85.4 fl (82-101) 11/04/24 03:49 MCH 28.4 pg (27-33) 11/04/24 03:49 MCHC 33.3 g/dL (30-55) 11/04/24 03:49 RDW 13.6 % (12.1-15.1) 11/04/24 03:49 Plt Count 344 10^3/cmm (157-399) 11/04/24 03:49 MPV 9.0 fL (7.4-10.4) 11/04/24 03:49 Neut % (Auto) 54.0 % 11/04/24 03:49 Lymph % (Auto) 35.8 % 11/04/24 03:49 [place] % (Auto) 6.1 % 11/04/24 03:49 Eos % (Auto) 2.7 % 11/04/24 03:49 Baso % (Auto) 1.0 % 11/04/24 03:49 Neut # (Auto) 6.25 10^3/uL (1.8-7.7) 11/04/24 03:49 Lymph # (Auto) 4.1 10^3/uL (0.8-4.8) 11/04/24 03:49 [place] # (Auto) 0.7 10^3/uL (0.2-0.9) 11/04/24 03:49 Eos # (Auto) 0.3 10^3/uL (0.0-0.8) 11/04/24 03:49 Baso # (Auto) 0.1 10^3/uL (0.0-0.1) 11/04/24 03:49 Nucleated RBC % (auto) 0 % 11/04/24 03:49 Nucleated RBCs # 0.0 /100WBC 11/04/24 03:49 Sodium 138 mmol/L (136-145) 11/04/24 03:49 Potassium 3.7 mmol/L (3.5-5.1) 11/04/24 03:49 Chloride 102 mmol/L (98-107) 11/04/24 03:49 Carbon Dioxide 26 mmol/L (22-29) 11/04/24 03:49 Anion Gap 13.7 (5-19) 11/04/24 03:49 BUN 9 mg/dL (6-20) 11/04/24 03:49 Creatinine 0.8 mg/dL (0.7-1.2) 11/04/24 03:49 GFR Calculation 115.1 mL/min (90-130) 11/04/24 03:49 Glucose 95 mg/dL (65-115) 11/04/24 03:49 Calculated Osmolality 284 mOsm/kg (285-295) L 11/04/24 03:49 Calcium 9.5 mg/dL (8.5-10.5) 11/04/24 03:49 Total Bilirubin 0.7 mg/dL (0.15-1.2) 11/04/24 03:49 AST 16 U/L (0-40) 11/04/24 03:49 ALT 22 U/L (0-41) 11/04/24 03:49 Alkaline Phosphatase 78 U/L (40-130) 11/04/24 03:49 C-Reactive Protein 7.5 mg/L (0.0-4.9) H 11/04/24 03:49 Total Protein 6.6 g/dL (6.6-8.7) 11/04/24 03:49 Albumin 4.3 g/dL (3.5-5.2) 11/04/24 03:49 Globulin 2.3 g/dL (1.3-4.6) 11/04/24 03:49 Lipase 45 U/L (13-60) 11/04/24 03:49 Urine Color Yellow (Yellow) 11/04/24 03:49 Urine Appearance Clear (CLEAR) 11/04/24 03:49 Urine pH 5.5 (5-7) 11/04/24 03:49 Ur Specific [place] 1.019 (1.005-1.030) 11/04/24 03:49 Urine Protein Negative (Negative) 11/04/24 03:49 Urine Glucose (UA) Negative (Normal) 11/04/24 03:49 Urine Ketones Trace (Negative) 11/04/24 03:49 Urine Blood Negative (Negative) 11/04/24 03:49 Urine Nitrate Negative (Negative) 11/04/24 03:49 Urine Bilirubin Negative (Negative) 11/04/24 03:49 Urine Urobilinogen 1.0 mg/dL (Negative) 11/04/24 03:49 Ur Leukocyte Esterase Negative (Negative) 11/04/24 03:49 Urine RBC 0-2 /hpf (0-2) 11/04/24 03:49 Urine WBC 0-5 /hpf (0-5) 11/04/24 03:49 Ur Squamous Epith Cells 0-5 /hpf (0-5) 11/04/24 03:49 Amorphous Sediment Not Reportable 11/04/24 03:49 Urine Bacteria None seen /hpf (NONE) 11/04/24 03:49 Hyaline Casts 0.40 /lpf 11/04/24 03:49 No radiology studies performed this visit Discharge Plan Discharge Patient Disposition: Home Clinical Impression: Abdominal pain Condition: Stable Prescriptions: New lansoprazole [Prevacid] 30 mg capsule,delayed release(DR/EC) 30 mg PO DAILY Qty: 30 0RF No Action ketorolac 10 mg tablet 10 mg PO TID PRN (Reason: pain) Qty: 10 0RF hydrocodone-acetaminophen 5-325 mg tablet 1 tab PO Q6H PRN (Reason: pain) Qty: 10 0RF Discharge Orders: Discharge ED (Routine); Ordered 11/04/24 Ordered By: Bhanu Castaneda Referrals: Sangeeta Kan FNP [Primary Care Provider] - 1-3 days Patient Instructions: Abdominal Pain (ED), Opioid Safety, Pain Management Activity Restrictions/Additional Instructions: Medication as directed. You may also take Tylenol or ibuprofen for pain as needed. Call your doctor for follow-up appointment. Return for worsening pain despite treatment, vomiting liquids or medications, other concerning symptoms. Coding Level of Care Code ED Disbursement Clerk for Galilea Mcgill
[2024-11-04 05:14] VITALS: BP 118/58; PULSE 82; O2SAT 96
== END 2024-11-04 05:15 | disposition home or self-care (01) ==
PROVIDERS: Emergency Provider Emergency Medicine; PCP Nurse Practitioner Family
DX: R10.10 Upper abdominal pain, unspecified (principal)
CPT/HCPCS: 36415; 80053; 81001; 83690; 85025; 86140; 93005; 96374; 96375; 99284; J1885; J2405

== ENCOUNTER → 2024-11-18 12:37 | Outpatient (BNVA) | payer MEDICAID, SELFPAY | PROVIDERS: PCP Nurse Practitioner Family; Visit Provider Nurse Practitioner Family | DX: R19.7 Diarrhea, unspecified (principal); R73.9 Hyperglycemia, unspecified; E55.9 Vitamin D deficiency, unspecified | CPT/HCPCS: 80053; 82306; 82607; 83036; 83690; 83735; 84443; 85025 ==

== ENCOUNTER 2024-11-25 21:35 | Emergency (ER) | payer MEDICAID, SELFPAY ==
[2024-11-25 21:40] VITALS: BP 152/84; PULSE 91; RESP 16; TEMP 36.7; O2SAT 97
[2024-11-25 22:15] VITALS: BP 132/81; PULSE 88; O2SAT 95
--- NOTE | 2024-11-25 22:22 | ED_ITS ---
HPI - Nausea/Vomiting/Diarrhea General: Chief complaint: Nausea/Vomiting/Diarrhea Stated complaint: Hand and Feet Burning Time Seen by Provider: 11/25/24 21:46 Source: patient Mode of arrival: ambulatory Limitations: no limitations History of Present Illness: Patient is a 29-year-old male presents the emergency department with multiple symptoms to report. States for the past couple of days, has been dealing with headache, congestion, sore throat, nausea vomiting and diarrhea. Also states that this morning his hands, feet, and lower abdomen have been red and burning. No reported allergens or new medications started. Unknown what may have caused this, he has never had this issue before. He has not taken any medications for symptoms. Does not report any sick contacts. Vital stable. Onset (ago): day(s) Associated nausea: Yes Exacerbating factors: none Relieving factors: none Associated symtoms: Reports headache(s) and nausea; Denies change in vision, chest pain, dysuria, fatigue or palpitations Treatment prior to arrival: none Related Data Previous Rx's Medication Instructions Recorded ondansetron 4 mg disintegrating 4 mg PO QID PRN nausea and 11/18/24 tablet vomiting #30 tabs pantoprazole 40 mg tablet,delayed 40 mg PO DAILY 30 days #30 tabs 11/18/24 release (Protonix) sucralfate 1 gram tablet (Carafate) 1 g PO TID #30 tabs 11/18/24 Allergies Allergy/AdvReac Type Severity Reaction Status Date / Time Penicillins Allergy Mild ALGY-Rash Verified 11/25/24 21:45 diclofenac Allergy ADR-Itching Verified 11/25/24 21:45 Review of Systems General: Reports: 10 or more systems reviewed and unremarkable except in HPI and below Const: Denies: fever(s), chills or fatigue Eyes: Denies: change in vision ENMT: Reports: throat pain and nasal congestion; Denies: ear or mastoid pain or nasal discharge Card: Denies: chest pain, palpitations, swelling of feet/ankles or lightheadedness Resp: Denies: dyspnea, productive cough or wheezing GI: Reports: nausea, vomiting and diarrhea; Denies: abdominal pain or constipation : Denies: flank pain, difficulty urinating, dysuria or urinary frequency Musc: Denies: neck pain, back pain or joint pain Skin/Breast: Reports: erythema (Hands, feet, lower abdomen with burning) Neuro: Reports: headache(s); Denies: numbness in extremities or weakness in extremities PFSH ED PFSH: Medical History GERD (gastroesophageal reflux disease) No pertinent family history Surgical History Hx laparoscopic cholecystectomy 08/23/23 Dr Wyatt No pertinent past surgical history Social History Smoking and tobacco/nicotine status: never used tobacco/nicotine Alcohol intake: never Physical Exam Const: COMMON NORMALS: no acute distress, patient oriented x3 and no limitations GENERAL APPEARANCE: cooperative, comfortable and well developed ORIENTATION/CONSCIOUSNESS: Yes awake, Yes oriented to person, Yes oriented to place and Yes oriented to time HENMT: COMMON NORMALS: normocephalic, atraumatic and hearing grossly normal bilaterally HEAD & SCALP: normocephalic and atraumatic Eye: COMMON NORMALS: Equal, round and reactive pupils present, EOMs intact bilaterally and conjunctivae normal CONJUNCTIVA: Yes conjunctivae normal PUPIL: Yes Equal, round and reactive pupils present Neck/C-Spine: COMMON NORMALS: full ROM, supple and no JVD Resp: COMMON NORMALS: normal respiratory effort, No retractions, No use of accessory muscles and clear to auscultation bilaterally AUSCULTATION: clear to auscultation bilaterally Cardio: COMMON NORMALS: no JVD, regular rate, regular rhythm, No clicks present (Cardio), No murmurs present (Cardio) and No rub (Cardio) RATE: regular rate RHYTHM: regular rhythm GI: COMMON NORMALS: Normal to inspection, nondistended, normoactive bowel sounds present, Soft to palpation and non-tender AUSCULTATION: Yes normoactive bowel sounds PALPATION: Yes Soft to palpation RECTAL EXAM: Yes deferred Extremity: COMMON NORMALS: full ROM and capillary refill normal Neuro: COMMON NORMALS: patient oriented x3, moves all extremities, no focal motor deficits and no sensory deficits noted SENSORIUM/ORIENTATION: Yes oriented to person, Yes oriented to place and Yes oriented to time Skin: NARRATIVE SKIN EXAM: There is redness to patient's bilateral hands and lower abdomen. No obvious redness of his feet. Bilateral hands are warm to the touch. Course Vital Signs: Vital signs: Vital Signs Temperature 98.0 F 11/25/24 21:40 Pulse Rate 88 11/25/24 22:15 Respiratory Rate 16 11/25/24 21:40 Blood Pressure 132/81 11/25/24 22:15 Pulse Oximetry 95 11/25/24 22:15 Oxygen Delivery Me thod Room Air 11/25/24 21:40 MDM - Nausea/Vomiting/Diarrhea Medical Decision Making Patient presented with left respiratory symptoms along with redness and pain to abdomen and hands. On exam these were red somewhat swollen, as well as to his abdomen. There is no concerning history that would make me think of a drug reaction or other contact dermatitis. He is RSV positive, likely this is a viral exanthem however other etiology includes erythromelalgia versus allergic dermatitis. Did try Benadryl here, does not seem to help at all. Also give a shot of steroids. Anticipate that the rash will improve as his body fights off RSV, encouraged him to follow close with primary care to make sure that his symptoms are improving. Otherwise return precautions given. He is comfortable discharge at this time. Lab Data Laboratory Results Coronavirus (PCR) Negative (Negative) 11/25/24 21:48 Influenza A (PCR) Negative (Negative) 11/25/24 21:48 Influenza Type B (PCR) Negative (Negative) 11/25/24 21:48 RSV (PCR) Positive (Negative) A 11/25/24 21:48 No radiology studies performed this visit Discharge Plan Discharge Patient Disposition: Home Clinical Impression: Respiratory syncytial virus (RSV) Qualifiers: RSV infection type: unspecified Qualified Code(s): B33.8 - Other specified viral diseases Condition: Stable Prescriptions: No Action sucralfate [Carafate] 1 gram tablet 1 g PO TID Qty: 30 0RF pantoprazole [Protonix] 40 mg tablet,delayed release (DR/EC) 40 mg PO DAILY 30 Days Qty: 30 0RF ondansetron 4 mg tablet,disintegrating 4 mg PO QID PRN (Reason: nausea and vomiting) Qty: 30 0RF Discharge Orders: Discharge ED (Routine); Ordered 11/25/24 Ordered By: Isauro Damian Referrals: Sangeeta Kan FNP [Primary Care Provider] - Patient Instructions: RSV (Respiratory Syncytial Virus) Infection (ED) Activity Restrictions/Additional Instructions: Control your fevers with Tylenol. Drink plenty of fluids. Rest and recovery. Follow-up with primary care. Return with any worsening breathing or other symptoms you have. Coding Level of Care Code ED Registered Nurse Post Partum for Galilea Mcgill
[2024-11-25] MEDS: acetaminophen 500 mg Tablet 1000 MG PO (22:29)
[2024-11-25] MEDS: diphenhydrAMINE 50 mg/mL SDV 1mL IM (22:30)
[2024-11-25] MEDS: dexamethasone 10 mg/mL INJ IM (22:31)
[2024-11-25 22:32] LABS: Covid PCR NEGATIVE (Negative); Influenza A NEGATIVE (Negative); Influenza B NEGATIVE (Negative)
[2024-11-25 23:04] LABS: Respiratory Syncytial Virus Ce POSITIVE (Negative)
[2024-11-25 23:38] VITALS: BP 114/78; PULSE 80; O2SAT 94
== END 2024-11-25 22:26 | disposition home or self-care (01) ==
PROVIDERS: Emergency Provider Physician Assistant; PCP Nurse Practitioner Family
DX: B33.8 Other specified viral diseases (principal); Z11.52 Encounter for screening for COVID-19
CPT/HCPCS: 87637; 96372; 99284; J1100; J1200

== ENCOUNTER → 2025-03-27 16:03 | Outpatient (BNVA) | payer MEDICAID, SELFPAY | PROVIDERS: Family Provider Nurse Practitioner Family; PCP Nurse Practitioner Family; Visit Provider Nurse Practitioner Family | DX: R30.0 Dysuria (principal) | CPT/HCPCS: 80053; 81000; 85025; 87086; 87661 ==

== ENCOUNTER 2025-04-02 23:48 | Emergency (ER) | payer MEDICAID, SELFPAY ==
[2025-04-03 00:18] VITALS: BP 165/89; PULSE 108; RESP 16; TEMP 36.6; O2SAT 98
[2025-04-03] MEDS: fluconazole 100 mg Tablet 150 MG PO (01:31)
[2025-04-03 01:32] VITALS: BP 126/90; PULSE 95; O2SAT 95
[2025-04-03 01:39] VITALS: BP 145/78; PULSE 93; O2SAT 97
--- NOTE | 2025-04-03 03:25 | ED_ITS ---
HPI - Skin/Abscess/Foreign Bdy General: Chief complaint: Skin/Abscess/Foreign Body Stated complaint: yeast infection spreaded, meds make worse Time Seen by Provider: 04/03/25 01:04 History of Present Illness: Patient is a 29-year-old male seen for discomfort in the groin region. 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 He has no history of diabetes and denies history of abscess or cellulitis requiring antibiotics. He does not shave in the region. Symptoms are worse throughout the day with heat and moisture and better in the morning after sleeping and cool temperature and dryness. This currently, pain is 3 of 10, worse with motion and better with rest. He has no systemic symptoms, no dysuria, no penile lesions, no history of STI. He is monogamous with 1 female and has been so for the last 10 years. Related Data Previous Rx's ?Medication ?Instructions ?Recorded ondansetron 4 mg disintegrating 4 mg PO QID PRN nausea and 11/18/24 tablet vomiting #30 tabs pantoprazole 40 mg tablet,delayed 40 mg PO DAILY 30 da ys #30 tabs 11/18/24 release (Protonix) sucralfate 1 gram tablet (Carafate) 1 g PO TID #30 tab s 11/18/24 fluconazole 150 mg tablet 150 mg PO DAILY 14 days #14 tabs 04/03/25 varenicline tartrate 1 mg tablet 1 mg PO BID 12 weeks #168 tabs 04/03/25 (Chantix) Allergies Allergy/AdvReac Type Severity Reaction Status Date / Time Penicillins Allergy Mild ALGY-Rash Verified 04/03/25 00:22 diclofenac Allergy ADR-Itching Verified 04/03/25 00:22 [facility] ED PFSH: Medical History GERD (gastroesophageal reflux disease) No pertinent family history Surgical History Hx laparoscopic cholecystectomy 08/23/23 Dr Wyatt No pertinent past surgical history Social History (Reviewed 03/27/25 @ 15:42 by DEQUAN Wilde Smoking and tobacco/nicotine status: current every day tobacco/nicotine user Alcohol intake: never Physical Exam Const: COMMON NORMALS: no acute distress, patient oriented x3 and alert HENMT: COMMON NORMALS: normocephalic and atraumatic HEAD & SCALP: normocephalic and atraumatic Eye: COMMON NORMALS: Equal, round and reactive pupils present, EOMs intact bilaterally and no scleral icterus PUPIL: Yes Equal, round and reactive pupils present Resp: COMMON NORMALS: normal respiratory effort and No retractions Cardio: COMMON NORMALS: regular rate, regular rhythm and No murmurs present (Cardio) RATE: regular rate RHYTHM: regular rhythm GI: COMMON NORMALS: Normal to inspection, nondistended, normoactive bowel sounds present, Soft to palpation and non-tender PALPATION: Yes Soft to palpation Neuro: COMMON NORMALS: patient oriented x3 SENSORIUM/ORIENTATION: Yes alert Skin: OTHER: Very mild redness in the bilateral groin region. No abscess, no cellulitis. No scrotal involvement. No penile involvement. Skin change has shiny appearance of fungal infection. Course Vital Signs: Vital signs: Vital Signs Temperature 97.8 F 04/03/25 00:18 Pulse Rate 93 04/03/25 01:39 Respiratory Rate 16 04/03/25 00:18 Blood Pressure 145/78 04/03/25 01:39 Pulse Oximetry 97 04/03/25 01:39 Oxygen Delivery Me thod Room Air 04/03/25 00:18 MDM - Skin/Abscess/Foreign Bdy Medicial Decision Making In summary, patient appears to have a fungal infection of the bilateral groin region which exacerbates with heat and moisture and has not responded adequately to topical intervention. I will prescribe him fluconazole orally and advised that he use barrier cream when he knows he will be in wet, warm environments and then pat dry and wash thoroughly when he gets home from work. He shows good understanding and agrees to the plan and will be discharged in stable condition. No radiology studies performed this visit Discharge Plan Discharge Patient Disposition: Home Clinical Impression: Fungal infection of the groin Condition: Stable Prescriptions: New fluconazole 150 mg tablet 150 mg PO DAILY 14 Days Qty: 14 0RF varenicline tartrate [Chantix] 1 mg tablet 1 mg PO BID 84 Days Qty: 168 0RF No Action sucralfate [Carafate] 1 gram tablet 1 g PO TID Qty: 30 0RF pantoprazole [Protonix] 40 mg tablet,delayed release (DR/EC) 40 mg PO DAILY 30 Days Qty: 30 0RF ondansetron 4 mg tablet,disintegrating 4 mg PO QID PRN (Reason: nausea and vomiting) Qty: 30 0RF Discharge Orders: Discharge ED (Routine); Ordered 04/03/25 Ordered By: Kalia Felton Referrals: Sangeeta Kan FNP [Primary Care Provider, Family Practice] Discharge Diet: Usual diet Discharge Activity: Increase activity as tolerated Patient Instructions: Skin Yeast Infection (ED) Activity Restrictions/Additional Instructions: Remember to use Vaseline as a barrier cream in the affected regions to avoid further friction and pain when sweating and working outside Print Language: Slovenian Coding Level of Care Code ED Batter Scaler for Galilea Mcgill
== END 2025-04-03 01:40 | disposition home or self-care (01) ==
PROVIDERS: Emergency Provider Student in an Organized Health Care Education/Training Program; PCP Nurse Practitioner Family
DX: B36.9 Superficial mycosis, unspecified (principal); F17.200 Nicotine dependence, unspecified, uncomplicated; Z79.899 Other long term (current) drug therapy
CPT/HCPCS: 99283; J9999

== ENCOUNTER → 2025-04-10 16:38 | Outpatient (BNVA) | payer MEDICAID, SELFPAY | PROVIDERS: PCP Nurse Practitioner Family; Visit Provider Nurse Practitioner Family | DX: R30.0 Dysuria (principal) | CPT/HCPCS: 81000; 87491; 87591 ==

== ENCOUNTER 2025-04-26 23:31 | Emergency (ER) | payer MEDICAID, SELFPAY ==
--- OUTSIDE RECORDS SUMMARY | 2022-07-27 05:30 | XMS_ITS | Continuity of Care Document ---
Author Organization [facility] Address [address] [id number]-[place] [address] Phone Care Team Providers Care Tongue Carrier Name Role Phone Olivier Riddle DMD Unavailable [...] Diagnoses Date Provider Providers Copied on Encounter [facility], [id number]-Ny [place], [place], [address], [place] tel:[phone] [facility] No Information 2 Venkatesh Aguayo. [address] [place] [address], [address], [place]. tel:[phone] Referring Provider: Olivier Riddle, [address] [place] [address], [address]. tel:[phone] [facility], [address] [id number] 856458HF-Ze [place], [place], [address], [place] tel:[phone] [facility] No Information 2 Venkatesh Aguayo. [address] [place] [address], [address], [place]. tel:[phone] Referring Provider: Olivier Riddle, [address] [place] [address], [address]. tel:[phone] [facility], [address] [id number] 634894TU-Ib [place], [place], [address], [place] tel:[phone] [facility] No Information 2 Chuck Bal. [address] [place], [place], [address], [place]. tel:[phone] Referring Provider: Valeriano Woods, [address] [place], [address] . tel:[phone] [facility], [address] [id number] 889804YS-Nn [place], [place], [address], [place] tel:[phone] Pediatrics F1 Insufficient social insurance and welfare support 2 [facility]. [address] [place], [place], [address], [place]. tel:[phone] Family History Family Member Type Diagnosis Age At Onset No Information Payers Payer name Insurance type Covered green party ID Jessica moreland(s) D [employer] Medicaid CI [id number] Social History Type Description Quantity Date Captured [...] welfare support) ordered Referral Ordered: Referrals: Location: [facility] ordered History Of Present Illness Encounter Date Complaint History Of Prese nt Illness No Information Functional Status Date Functional Assessmen t No Information Instructions Date Instruction Additional Infor mation No Information Assessments Type Assessment Date No Information Patient Care Teams Name Effective Dates (start - stop) Status Members No Information
--- OUTSIDE RECORDS SUMMARY | 2025-04-26 23:37 | XMS_ITS | Clinical Summary ---
Author Organization [facility] Address [address] [facility] Attn: Epic Prelude ADT LES [place] [id number] Care Team Providers Care Tilesetter Name Role Phone Hugh Banerjee NP Primary Care Provider [phone] Allergies Active Allergy Reactions Criticality Noted Date Comments Penicillins Hives High 05/11/2016 Medications topiramate (TOPAMAX) 25 mg tablet Take 2 Tablet (50 mg) by mouth 2 times daily One tablet at night for 1stweek; one tablet at morning, one tablet at night for 2nd week; one tablet at morning, two tablet at evening for 3rd week; then two tablet at morning, two tablet at evening.. 120 Tablet 1 07/21/2016 Active amitriptyline (ELAVIL) 10 mg tablet Take 3 Tablet (30 mg) by mouth daily at bedtime. 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 Gender Identity Not on file Sexual Orientation Not on file Last Filed Vital Signs Vital Sign Reading Time Taken Comments Blood Pressure 108/76 07/21/2016 2:33 PM CDT Pulse 85 07/21/2016 2:33 PM CDT Temperature - - Respiratory Rate - - Oxygen Saturation - - Inhaled Oxygen Concentration - - Weight 95.7 kg (211 lb) 07/21/2016 2:33 PM CDT Height 180.3 cm (5' 11 ) 07/21/2016 2:33 PM CDT Body Mass Index 29.43 07/21/2016 2:33 PM CDT Plan of Treatment Health Maintenance Due Date Last Done Comments DTAP/TDAP/TD VACCINES (1 - Tdap) 2014 HEPATITIS B VACCINES (1 of 3 - 19+ 3-dose series) 2014 INFLUENZA VACCINE (#1) 2025 HPV VACCINES Aged Out No longer eligi ble based on patient's age to complete this topic Care Teams Tilesetter Relationship Specialty Start Date End Date Hugh Banerjee NP [address] [place] [address] [phone] PCP - General NURSE PRACTITIONER 04/08/16
--- OUTSIDE RECORDS SUMMARY | 2025-04-26 23:37 | XMS_ITS | Clinical Summary ---
Author Organization [facility] Address [address] [place] [address] Phone Care Team Providers Care Guide Plant Name Role Phone Hugh Banerjee NP Primary Care Provider Allergies Active Allergy Reactions Criticality Noted Date Comments Penicillins Hives High 05/11/2016 Medications amitriptyline (ELAVIL) 10 mg tablet Take 3 Tablet (30 mg) by mouth daily at bedtime. 90 Tablet 2 07/21/2016 Active topiramate (TOPAMAX) 25 mg tablet Take 2 Tablet (50 mg) by mouth 2 times daily One tablet at night for 1stweek; one tablet at morning, one tablet at night for 2nd week; one tablet at morning, two tablet at evening for 3rd week; then two tablet at morning, two tablet at evening.. 120 Tablet 1 07/21/2016 Active Active Problems No known active problems Social History Tobacco Use Types Packs/Day Years Used Date Smoking Tobacco: Every Day Smokeless Tobacco: Never Sex and Gender Information Value Date Recorded Sex Assigned at Not on file Legal Sex Male 11:29 AM CDT Gender Identity Not on file Sexual Orientation [...] 19+ 3-dose series) 2014 INFLUENZA VACCINE (#1) 2024 HPV VACCINES Aged Out No longer eligi ble based on patient's age to complete this topic Care Teams Guide Plant Relationship Specialty Start Date End Date Hugh Banerjee NP PCP - General NURSE PRACTITIONER 04/08/16
[2025-04-26 23:54] VITALS: BP 137/85; PULSE 95; RESP 17; TEMP 36.9; O2SAT 97; BMI 36.6
--- NOTE | 2025-04-27 01:19 | XRR_ITS ---
PROCEDURE INFORMATION: Exam: XR Right Shoulder Exam date and time: 04/27/2025 1:21 AM Age: 29 years old Clinical indication: Pain; Shoulder; Right; Additional info: R shoulder pain TECHNIQUE: Imaging protocol: Radiologic exam of the right shoulder. Views: 2 or more views. COMPARISON: CR XR chest 1V portable [id number] 10/15/2024 1:24 AM FINDINGS: Bones/joints: No acute fracture or dislocation. AC joint is congruent. Soft tissues: Unremarkable. XR/XR shoulder RT min 2V* [id number] IMPRESSION: No acute findings.
--- NOTE | 2025-04-27 01:36 | W.ED.DENTAL ---
HPI - Dental/Oral General: Chief complaint: Dental/Oral Stated complaint: left dental pain Time Seen by Provider: 04/27/25 01:09 History of Present Illness: 29 year old male complaining of left sided jaw and ear pain. He denies fever. He has no teeth. No vomiting. He also complaints of chronic right shoulder pain that has worsened over the last three days. No shortness of breath. Related Data Previous Rx's ?Medication ?Instructions ?Recorded ondansetron 4 mg disintegrating 4 mg PO QID PRN nausea and 11/18/24 tablet vomiting #30 tabs pantoprazole 40 mg tablet,delayed 40 mg PO DAILY 30 days #30 tabs 11/18/24 release (Protonix) sucralfate 1 gram tablet (Carafate) 1 g PO TID #30 tabs 11/18/24 varenicline tartrate 1 mg tablet 1 mg PO BID 12 weeks #168 tabs 04/03/25 (Chantix) clindamycin HCl 300 mg capsule 300 mg PO Q6H 10 days #40 caps 04/27/25 (Cleocin HCl) ketorolac 10 mg tablet 10 mg PO TID PRN pain #10 tabs 04/27/25 Allergies Allergy/AdvReac Type Severity Reaction Status Date / Time Penicillins Allergy Mild ALGY-Rash Verified 04/10/25 14:15 diclofenac Allergy ADR-Itching Verified 04/10/25 14:15 PFSH ED PFSH: Medical History GERD (gastroesophageal reflux disease) No pertinent family history Surgical History Hx laparoscopic cholecystectomy 08/23/23 Dr Wyatt No pertinent past surgical history Social History Smoking and tobacco/nicotine status: current every day tobacco/nicotine user Alcohol intake: never Physical Exam Const: COMMON NORMALS: no acute distress GENERAL APPEARANCE: cooperative; not ill appearing and not frail appearing HENMT: COMMON NORMALS: normocephalic, atraumatic, external ears normal, EAC's normal and Normal external nose present HEAD & SCALP: normocephalic and atraumatic FACE & SINUS: normal facial exam and edema on the left mandible (left) NOSE: Normal external nose present and Normal nares present EXTERNAL EAR: Yes external ears normal EXTERNAL AUDITORY CANAL: EAC's normal TYMPANIC MEMBRANE: TM abnormal TM laterality: left Details: bulging, effusion and erythematous Eye: COMMON NORMALS: Equal, round and reactive pupils present and EOMs intact bilaterally PUPIL: Yes Equal, round and reactive pupils present Neck/C-Spine: GENERAL: Yes trachea midline Chest: CHEST: Yes Symmetrical chest wall rise Resp: COMMON NORMALS: normal respiratory effort, No retractions, No use of accessory muscles and clear to auscultation bilaterally AUSCULTATION: clear to auscultation bilaterally Cardio: COMMON NORMALS: regular rate and regular rhythm RATE: regular rate RHYTHM: regular rhythm Neuro: CHRISS COMA SCALE: document GCS findings Chriss coma scale eye opening: Spontaneous Pease coma scale verbal response: Orientated Chriss coma scale motor response: Obey commands Chriss coma scale total score: 15 SENSORY EXAM: Yes extremities (intact) Psych: COMMON NORMALS: speech normal SPEECH: Yes normal speech Skin: COMMON NORMALS: no rashes or lesions noted GENERAL SKIN EXAM: no rashes or lesions noted Course Vital Signs: Vital signs: Vital Signs Temperature 97.8 F 04/27/25 01:53 Pulse Rate 82 04/27/25 01:53 Respiratory Rate 17 04/27/25 01:53 Blood Pressure 137/81 04/27/25 01:53 Pulse Oximetry 97 04/27/25 01:53 Oxygen Delivery Me thod Room Air 04/26/25 23:54 MDM - Dental/Oral Medical Decision Making Mild swelling to left cheek and jaw. Evidence of otitis media on exam. Filter X-ray is negative. 1 dose of dexamethasone here. Antibiotics. Toradol. Home. Outpatient follow up. Lab Data Radiology Impressions Shoulder X-Ray 04/27/25 01:19 IMPRESSION: No acute findings. All radiology interpretation(s) finalized by discharge Discharge Plan Discharge Patient Disposition: Home Clinical Impression: Otitis media, Gingivitis, Right rotator cuff tendinitis Condition: Stable Prescriptions: New clindamycin HCl [Cleocin HCl] 300 mg capsule 300 mg PO Q6H 10 Days Qty: 40 0RF ketorolac 10 mg tablet 10 mg PO TID PRN (Reason: pain) Qty: 10 0RF No Action sucralfate [Carafate] 1 gram tablet 1 g PO TID Qty: 30 0RF pantoprazole [Protonix] 40 mg tablet,delayed release (DR/EC) 40 mg PO DAILY 30 Days Qty: 30 0RF ondansetron 4 mg tablet,disintegrating 4 mg PO QID PRN (Reason: nausea and vomiting) Qty: 30 0RF varenicline tartrate [Chantix] 1 mg tablet 1 mg PO BID 84 Days Qty: 168 0RF Discharge Orders: Discharge ED (Routine); Ordered 04/27/25 Ordered By: Bhanu Castaneda Referrals: Sangeeta Kna FNP [Primary Care Provider, Family Practice] - 4-7 days Patient Instructions: Gingivitis (ED), Ear Infection (ED), Tendinitis (ED), Opioid Safety, Pain Management, Patient Portal & Celeste Instructions Activity Restrictions/Additional Instructions: Antibiotics as directed. Follow-up with your doctor next week. Return for any problems. Medication will help with your shoulder discomfort as well. Print Language: Lithuanian Coding Level of Care Code ED Sap Pi Architect for Galilea Mcgill
[2025-04-27 01:48] VITALS: RESP 17
[2025-04-27] MEDS: oxyCODONE-APAP 5-325 mg Tablet 2 TAB PO (01:48)
[2025-04-27 01:53] VITALS: BP 137/81; PULSE 82; RESP 17; TEMP 36.6; O2SAT 97
== END 2025-04-27 01:55 | disposition home or self-care (01) ==
PROVIDERS: Emergency Provider Emergency Medicine; PCP Nurse Practitioner Family
DX: K05.10 Chronic gingivitis, plaque induced (principal); M75.31 Calcific tendinitis of right shoulder; H66.92 Otitis media, unspecified, left ear
CPT/HCPCS: 73030; 99283; J8540; J9999

== ENCOUNTER 2025-05-22 00:48 | Emergency (ER) | payer MEDICAID, SELFPAY ==
[2025-05-22 00:54] VITALS: BP 145/110; PULSE 102; RESP 16; TEMP 36.8; O2SAT 94; BMI 36.2
--- NOTE | 2025-05-22 02:34 | ED_ITS ---
HPI - Headache General: Chief Complaint: Headache Stated Complaint: Head pain Time Seen by Provider: 05/22/25 02:32 History of Present Illness: 29-year-old man with a history of headac hes who presents emergency room with headache for the last several days. Tylenol has not helped. He says he feels like there is a knot in the muscles in the back of his head. He said he could not fall asleep tonight so he came to the emergency room. No focal motor deficits. No fevers. No nuchal rigidity. Related Data Previous Rx's ?Medication ?Instructions ?Recorded ondansetron 4 mg disintegrating 4 mg PO QID PRN nausea and 11/18/24 tablet vomiting #30 tabs pantoprazole 40 mg tablet,delayed 40 mg PO DAILY 30 da ys #30 tabs 11/18/24 release (Protonix) sucralfate 1 gram tablet (Carafate) 1 g PO TID #30 tab s 11/18/24 varenicline tartrate 1 mg tablet 1 mg PO BID 12 weeks #168 tabs 04/03/25 (Chantix) ketorolac 10 mg tablet 10 mg PO TID PRN pain #10 ta bs 04/27/25 ondansetron 8 mg disintegrating 8 mg PO Q6H #14 tabs 0 05/22/25 tablet Allergies Allergy/AdvReac Type Severity Reaction Status Date / Time Penicillins Allergy Mild ALGY-Rash Verified 05/22/25 00:57 diclofenac Allergy ADR-Itching Verified 05/22/25 00:57 Review of Systems Narrative: Constitutional symptoms: Negative except as documented in HPI. Skin symptoms: Negative except as documented in HPI. Eye symptoms: Negative except as documented in HPI. ENMT symptoms: Negative except as documented in HPI. Respiratory symptoms: Negative except as documented in HPI. Cardiovascular symptoms: Negative except as documented in HPI. Gastrointestinal symptoms: Negative except as documented in HPI. Genitourinary symptoms: Negative except as documented in HPI. Musculoskeletal symptoms: Negative except as documented in HPI. Neurologic symptoms: Negative except as documented in HPI. Psychiatric symptoms: Negative except as documented in HPI. Endocrine symptoms: Negative except as documented in HPI. PFS ED PFSH: Medical History (Updated 05/22/25 @ 02:42 by Tita Santana MD) GERD (gastroesophageal reflux disease) No pertinent family history Surgical History Hx laparoscopic cholecystectomy 08/23/23 Dr Wyatt No pertinent past surgical history Social History Smoking and tobacco/nicotine status: current every day tobacco/nicotine user Alcohol intake: never Physical Exam Narrative: EXAM NARRATIVE: General: Alert, no acute distress. Skin: Warm, dry. Head: Normocephalic, atraumatic. Neck: Supple, trachea midline. Eye: Extraocular movements are intact. Ears, nose, mouth and throat: mucosa moist. Cardiovascular: Regular, Normal peripheral perfusion. Respiratory: Lungs are clear to auscultation, respirations are non-labored, breath sounds are equal, Symmetrical chest wall expansion. Gastrointestinal: Soft, Nontender, Non distended Musculoskeletal: Normal ROM, no deformity. Neurological: Alert and oriented, No focal neurological deficit observed. Psychiatric: Cooperative, appropriate mood & affect. Course Vital Signs: Vital signs: Vital Signs Temperature 98.2 F 05/22/25 00:54 Pulse Rate 102 H 05/22/25 00:54 Respiratory Rate 16 05/22/25 00:54 Blood Pressure 145/110 05/22/25 00:54 Pulse Oximetry 94 05/22/25 00:54 MDM - Headache Medical Decision Making Medical decision making: Differential diagnosis for this patient presenting with severe headache including but not limited to and based on the above HPI, review of systems and physical exam: Intracranial hemorrhage, stroke, migraine, cluster headache, infections such as influenza, covid Orders placed to evaluate differential diagnosis based on the above differential, HPI and physical exam Assessment and plan: headache - 50 mg IV Benadryl - 30 mg IV Toradol - 10 mg IV Reglan - 8 mg IV Zofran - 60 mg IV Norflex - 1 L normal saline bolus - Discharged home - Discussed plan with patient. Answered any questions. - Evaluation and treatment of this problem were appropriate in the emergency setting. No radiology studies performed this visit Discharge Plan Discharge Patient Disposition: Home Clinical Impression: Headache, Dehydration Condition: Stable Prescriptions: New ondansetron 8 mg tablet,disintegrating 8 mg PO Q6H Qty: 14 0RF Rx Instructions: Take 1/2-1 tab every 6 hours as needed for nausea and vomiting No Action sucralfate [Carafate] 1 gram tablet 1 g PO TID Qty: 30 0RF pantoprazole [Protonix] 40 mg tablet,delayed release (DR/EC) 40 mg PO DAILY 30 Days Qty: 30 0RF ondansetron 4 mg tablet,disintegrating 4 mg PO QID PRN (Reason: nausea and vomiting) Qty: 30 0RF varenicline tartrate [Chantix] 1 mg tablet 1 mg PO BID 84 Days Qty: 168 0RF ketorolac 10 mg tablet 10 mg PO TID PRN (Reason: pain) Qty: 10 0RF Discharge Orders: Discharge ED (Routine); Ordered 05/22/25 Ordered By: Tita Santana Referrals: Sangeeta Kan FNP [Primary Care Provider, Family Practice] Discharge Diet: Usual diet Discharge Activity: Increase activity as tolerated Patient Instructions: Acute Headache (ED), Opioid Safety, Pain Management, Patient Portal & Celeste Instructions Activity Restrictions/Additional Instructions: Thank you for choosing [facility] for your healthcare needs today. You have been screened and evaluated and felt safe for discharge. Health conditions do change or evolve sometimes and as such it is important that you follow up with your Primary Doctor to be re checked, 3-5 days is a general good time frame for follow up. You are always welcome to return to the ED for re assessment if your symptoms are worsening or you have new concerns Print Language: Malian Coding Level of Care Code ED Job Putter Up And Ticket Preparer for Galilea Mcgill
[2025-05-22 02:57] VITALS: BP 136/76; PULSE 76; RESP 14
[2025-05-22] MEDS: ondansetron 2 mg/ML SDV 2 mL 8 MG IVP (03:09)
[2025-05-22] MEDS: orphenadrine 30 mg/mL Inj 2 mL 60 MG IVP (03:10)
[2025-05-22] MEDS: metoclopramide 5 mg/mL SDV 2 mL 10 MG IVP (03:10)
[2025-05-22] MEDS: diphenhydrAMINE 50 mg/mL SDV 1mL IVP (03:10)
[2025-05-22 04:20] VITALS: BP 126/65; PULSE 85; RESP 14; O2SAT 97
--- OUTSIDE RECORDS SUMMARY | 2025-05-23 03:15 | XMS_ITS | Clinical Summary ---
Author Organization [facility] de Address [address] [place] [address] Phone Care Team Providers Care Job Interviewer Name Role Phone Hugh Banerjee NP Primary [...] Health Maintenance Due Date Last Done Comments HPV VACCINES (1 - Male 3-dose series) 2010 DTAP/TDAP/TD VACCINES (1 - Tdap) 2014 HEPATITIS B VACCINES (1 of 3 - 19+ 3-dose series) 11/2014 INFLUENZA VACCINE (#1) 2025 Care Teams Job Interviewer Relationship Specialty Start Date End Date Hugh Banerjee NP PCP - General NURSE PRACTITIONER 04/08/16
--- OUTSIDE RECORDS SUMMARY | 2025-05-23 03:15 | XMS_ITS | Clinical Summary ---
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
== END 2025-05-22 04:32 | disposition home or self-care (01) ==
PROVIDERS: Emergency Provider Emergency Medicine; PCP Nurse Practitioner Family
DX: R51.9 Headache, unspecified (principal); E86.0 Dehydration; Z72.0 Tobacco use
CPT/HCPCS: 96361; 96374; 96375; 99284; J1100; J1200; J1885; J2360; J2405; J2765; J7030

== ENCOUNTER → 2025-05-26 11:32 | Outpatient (BNVA) | payer MEDICAID, SELFPAY | PROVIDERS: PCP Nurse Practitioner Family; Visit Provider Nurse Practitioner Family | DX: E55.9 Vitamin D deficiency, unspecified (principal); R51.9 Headache, unspecified; R53.82 Chronic fatigue, unspecified | CPT/HCPCS: 80053; 80061; 82306; 82607; 84443; 85025 ==

== ENCOUNTER 2025-05-27 02:40 | Emergency (ER) | payer MEDICAID, SELFPAY ==
--- OUTSIDE RECORDS SUMMARY | 2022-07-27 05:30 | XMS_ITS | Continuity of Care Document ---
Author Organization [facility] Address [address] [id number][place] [address] Phone Care Team Providers Care Automatic Seamer Name Role Phone Olivier Riddle DMD Unavailable [...] Procedure Date Extraction, Erupted Tooth Or Exposed Surekha t [...] Diagnoses Date Provider Providers Copied on Encounter [facility], [id number]-Rr [place], [place], [address], [place] tel:[phone] [facility] No Information 2 Venkatesh Aguayo. [address] [place] [address], [address], [place]. tel:[phone] Referring Provider: Olivier Riddle, [address] [place] [address], [address]. tel:[phone] [facility], [id number] [id number]-Nk [place], [place], [address], [place] tel:[phone] [facility] No Information 2 Venkatesh Aguayo. [address] [place] [address], [address], [place]. tel:[phone] Referring Provider: Olivier Riddle, [address] [place] [address], [address]. tel:[phone] [facility], [id number] 810360BB-Cs [place], [address], [place] tel:[phone] [facility] No Information 2 Chuck Bal. [address] [place], [place], [address], [place]. tel:[phone] Referring Provider: Valeriano Woods, [address] [place], [address] . tel:[phone] [facility], [address] [id number] 767208QM-Uo [place], [place], [address], [place] tel:[phone] Pediatrics F1 Insufficient social insurance and welfare support 2 [facility]. [address] [place], [place], [address], [place]. tel:[phone] Family History Family Member Type Diagnosis Age At Onset No Information Payers Payer name Insurance type Covered republican ID Jessica moreland(s) D [employer] Medicaid CI [id number] Social History Type Description Quantity Date Captured [...] welfare support) ordered Referral Ordered: Referrals: Location: [facility] ordered History Of Present Illness Encounter Date Complaint History Of Prese nt Illness No Information Functional Status Date Functional Assessmen t No Information Instructions Date Instruction Additional Infor mation No Information Assessments Type Assessment Date No Information Patient Care Teams Name Effective Dates (start - stop) Status Members No Information
--- OUTSIDE RECORDS SUMMARY | 2025-05-27 02:45 | XMS_ITS | Clinical Summary ---
Author Organization [facility] de Address [address] [place] [address] Phone Care Team Providers Care Scrap Carrier Name Role Phone Hugh Banerjee NP Primary Care Provider [phone] Allergies Active Allergy Reactions Criticality Noted Date [...] 11/2014 INFLUENZA VACCINE (#1) 2025 Care Teams Scrap Carrier Relationship Specialty Start Date End Date Hugh Banerjee NP PCP - General NURSE PRACTITIONER 04/08/16
--- OUTSIDE RECORDS SUMMARY | 2025-05-27 02:45 | XMS_ITS | Clinical Summary ---
Author Organization [facility] Address [address] 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
[2025-05-27 02:51] VITALS: BP 126/86; PULSE 98; RESP 18; TEMP 37.1; O2SAT 95; BMI 37.2
--- NOTE | 2025-05-27 02:55 | ECG_ITS ---
[facility] Test Date: 2025-05-27 Pat Name: Adrián Bangura Department: Room: Gender: Male Seamless Tube Mill Operator: : 1995 Requested By: Tho Lopez Order Number: [id number] Rivera MD: Liat Gonzales M.D. Measurements Intervals [place] Rate: 97 P: 22 NE: 188 QRS: -42 QRSD: 90 T: 45 QT: 324 QTc: 412 Interpretive Statements SINUS RHYTHM POSSIBLE LEFT ATRIAL ENLARGEMENT [-0.1mV P-WAVE IN V1/V2] LEFT AXIS DEVIATION [QRS AXIS < -30] PATTERN CONSISTENT WITH PULMONARY DISEASE EARLY REPOLARIZATION [ST ELEVATION WITH NORMALLY INFLECTED T-WAVE] Compared to ECG 11/04/2024 03:38:41 No significant changes Electronically Signed On 05-27-2025 23:03:03 CDT by Liat Gonzales M.D. [email or web address]
--- NOTE | 2025-05-27 03:16 | ED_ITS ---
HPI - Headache 2 General: Chief Complaint: Headache Stated Complaint: Headache\BP high Time Seen by Provider: 05/27/25 03:06 History of Present Illness: Patient comes to the emergency department with chest pain. States he woke up with pain in his mid chest which he describes as sharp, radiated into his left arm. States he also had a headache and noticed his blood pressure was elevated. States he was seen here a week ago for headache and treated with a migraine concoction. States that he saw his PCP today for follow-up with a headache and also pointed out a bump on the back of his head which I am unable to appreciate on physical exam. Denies any cardiac history himself, but states there is a family history of heart problems. Physical exam is unremarkable. Will check labs, EKG, treat pain with 15 mg of IV Toradol, and reassess. Associated symptoms: Reports chest pain Related Data Previous Rx's ?Medication ?Instructions ?Recorded pantoprazole 40 mg tablet,delayed 40 mg PO DAILY 30 da ys #30 tabs 11/18/24 release (Protonix) varenicline tartrate 1 mg tablet 1 mg PO BID 12 weeks #168 tabs 04/03/25 (Chantix) ondansetron 8 mg disintegrating 8 mg PO Q6H #14 tabs 0 05/22/25 tablet lisinopril 10 mg tablet 10 mg PO DAILY #30 tabs 0802/14 Allergies Allergy/AdvReac Type Severity Reaction Status Date / Time Penicillins Allergy Mild ALGY-Rash Verified 05/26/25 10:49 diclofenac Allergy ADR-Itching Verified 05/26/25 10:49 Review of Systems 2 Card: Reports: chest pain [facility] ED 2 PFSH: Medical History (Updated 05/27/25 @ 04:50 by Tho Lopez MD) GERD (gastroesophageal reflux disease) No pertinent family history Surgical History Hx laparoscopic cholecystectomy 08/23/23 Dr Wyatt No pertinent past surgical history Social History Smoking and tobacco/nicotine status: current every day tobacco/nicotine user Alcohol intake: never Physical Exam 2 Const: COMMON NORMALS: healthy appearing HENMT: COMMON NORMALS: normocephalic and atraumatic HEAD & SCALP: n ormocephalic and atraumatic Neck/C-Spine: COMMON NORMALS: full ROM and supple Cardio: COMMON NORMALS: regular rate and regular rhythm RATE: regular rate RHYTHM: regular rhythm Extremity: COMMON NORMALS: normal to inspection and full ROM Course 2 Vital Signs: Vital signs: Vital Signs Temperature 98.8 F 05/27/25 02:51 Pulse Rate 98 05/27/25 02:51 Respiratory Rate 18 05/27/25 02:51 Blood Pressure 126/86 05/27/25 02:51 Pulse Oximetry 95 05/27/25 02:51 Oxygen Delivery Me thod Room Air 05/27/25 02:51 MDM - Headache Medical Decision Making on reassessment talk to the patient about his test results. His troponin is normal. His white blood cell count was mildly elevated. We discussed symptoms that should prompt immediate return to the emergency department. Will discharge at this time with precautions to return for worsening or changing symptom Lab Data 05/27/25 03:55 05/27/25 03:55 Laboratory Results WBC 18.23 10^3/uL (3.29-11.43) H 05/27/25 03:55 RBC 5.66 10^6/uL (3.85-5.65) H 05/27/25 03:55 Hgb 16.20 g/dL (11.27-16.99) 05/27/25 03:55 Hct 46.8 % (37-53) 05/27/25 03:55 MCV 82.7 fl (82-101) 05/27/25 03:55 MCH 28.6 pg (27-33) 05/27/25 03:55 MCHC 34.6 g/dL (30-55) D 05/27/25 03:55 RDW 14.0 % (12.1-15.1) 05/27/25 03:55 Plt Count 383 10^3/cmm (157-399) 05/27/25 03:55 MPV 8.9 fL (7.4-10.4) 05/27/25 03:55 Neut % (Auto) 60.4 % 05/27/25 03:55 Lymph % (Auto) 30.6 % 05/27/25 03:55 [place] % (Auto) 5.7 % 05/27/25 03:55 Eos % (Auto) 1.9 % 05/27/25 03:55 Baso % (Auto) 0.7 % 05/27/25 03:55 Neut # (Auto) 11.01 10^3/uL (1.8-7.7) H 05/27/25 03:55 Lymph # (Auto) 5.6 10^3/uL (0.8-4.8) H 05/27/25 03:55 [place] # (Auto) 1.0 10^3/uL (0.2-0.9) H 05/27/25 03:55 Eos # (Auto) 0.4 10^3/uL (0.0-0.8) 05/27/25 03:55 Baso # (Auto) 0.1 10^3/uL (0.0-0.1) 05/27/25 03:55 Nucleated RBC % (auto) 0 % 05/27/25 03:55 Nucleated RBCs # 0.0 /100WBC 05/27/25 03:55 Sodium 138 mmol/L (136-145) 05/27/25 03:55 Potassium 4.0 mmol/L (3.5-5.1) 05/27/25 03:55 Chloride 104 mmol/L (98-107) 05/27/25 03:55 Carbon Dioxide 24 mmol/L (22-29) 05/27/25 03:55 Anion Gap 14.0 (5-19) 05/27/25 03:55 BUN 14 mg/dL (6-20) 05/27/25 03:55 Creatinine 0.9 mg/dL (0.7-1.2) 05/27/25 03:55 GFR Calculation 99.8 mL/min (90-130) 05/27/25 03:55 Glucose 104 mg/dL (65-115) 05/27/25 03:55 Calculated Osmolality 287 mOsm/kg (285-295) 05/27/25 03:55 Calcium 9.4 mg/dL (8.5-10.5) 05/27/25 03:55 Troponin T Baseline 7 ng/L (0-15) 05/27/25 03:55 All radiology interpretation(s) finalized by discharge Discharge Plan Discharge Patient Disposition: Home Clinical Impression: Chest pain Condition: Stable Prescriptions: No Action pantoprazole [Protonix] 40 mg tablet,delayed release (DR/EC) 40 mg PO DAILY 30 Days Qty: 30 0RF lisinopril 10 mg tablet 10 mg PO DAILY Qty: 30 0RF varenicline tartrate [Chantix] 1 mg tablet 1 mg PO BID 84 Days Qty: 168 0RF ondansetron 8 mg tablet,disintegrating 8 mg PO Q6H Qty: 14 0RF Rx Instructions: Take 1/2-1 tab every 6 hours as needed for nausea and vomiting Discharge Orders: Discharge ED (Routine); Ordered 05/27/25 Ordered By: Tho Lopez Referrals: Sangeeta Kan FNP [Primary Care Provider, Family Practice] Patient Instructions: Chest Pain (ED) Print Language: Azeri Coding Level of Care Code ED Terminal Block Assembler for Galilea Mcgill
[2025-05-27 04:03] LABS: Hematocrit 46.8 % (37-53); Hemoglobin 16.20 g/dL (11.27-16.99); Mean Corpuscular HGB Conc 34.6 g/dL (30-55); Mean Corpuscular Hemoglobin 28.6 pg (27-33); Mean Corpuscular Volume 82.7 fl (82-101); Nucleated Red Blood Cells % 0 %; Platelet Count 383 10^3/cmm (157-399); Red Blood Count 5.66 10^6/uL (3.85-5.65); White Blood Count 18.23 10^3/uL (3.29-11.43)
--- NOTE | 2025-05-27 04:11 | XRR_ITS ---
PROCEDURE INFORMATION: Exam: XR Chest Exam date and time: 05/27/2025 4:22 AM Age: 29 years old Clinical indication: Pain; Chest pressure; Additional info: Cp TECHNIQUE: Imaging protocol: Radiologic exam of the chest. Views: 1 view. COMPARISON: CR XR chest 1V portable [id number] 10/15/2024 1:24 AM FINDINGS: Lungs: Lungs are clear bilaterally. Pleural spaces: No pleural effusion. No pneumothorax. Heart/Mediastinum: The cardiac silhouette and mediastinal contours are unremarkable. Bones/joints: Unremarkable for age. XR/XR chest 1V portable [id number] IMPRESSION: No acute cardiopulmonary process.
[2025-05-27 04:23] LABS: Troponin(5th) Baseline 7 ng/L (0-15)
[2025-05-27 04:24] LABS: Anion Gap 14.0 (5-19); Blood Urea Nitrogen 14 mg/dL (6-20); Calcium 9.4 mg/dL (8.5-10.5); Carbon Dioxide 24 mmol/L (22-29); Chloride 104 mmol/L (98-107); Creatinine Clr Calc Pharmacy 160.3738; Glucose 104 mg/dL (65-115); Osmolality Calculated 287 mOsm/kg (285-295); Potassium 4.0 mmol/L (3.5-5.1); Sodium 138 mmol/L (136-145)
[2025-05-27 05:31] VITALS: BP 119/82; PULSE 87; RESP 17; O2SAT 98
== END 2025-05-27 05:34 | disposition home or self-care (01) ==
PROVIDERS: Emergency Provider Emergency Medicine; PCP Nurse Practitioner Family
DX: R07.9 Chest pain, unspecified (principal); Z72.0 Tobacco use
CPT/HCPCS: 71045; 80048; 84484; 85025; 93005; 96374; 99285; J1885; J7030

== ENCOUNTER → 2025-06-17 09:08 | Outpatient (BNVA) | payer MEDICAID, SELFPAY | PROVIDERS: PCP Nurse Practitioner Family; Visit Provider Nurse Practitioner | DX: I10 Essential (primary) hypertension (principal); R73.9 Hyperglycemia, unspecified; K52.29 Other allergic and dietetic gastroenteritis and colitis | CPT/HCPCS: 80053; 83036; 85025; 86003; 86008 ==

== ENCOUNTER → 2025-06-20 11:39 | Outpatient (BNVA) | payer MEDICAID, SELFPAY | PROVIDERS: PCP Nurse Practitioner; Visit Provider Nurse Practitioner | DX: R39.9 Unspecified symptoms and signs involving the genitourinary system (principal); B99.9 Unspecified infectious disease | CPT/HCPCS: 81003; 87086 ==

== ENCOUNTER 2025-06-22 00:51 | Emergency (ER) | payer MEDICAID, SELFPAY ==
--- OUTSIDE RECORDS SUMMARY | 2022-07-27 05:30 | XMS_ITS | Continuity of Care Document ---
Author Organization [facility] Address [address] [id number][place] [address] Phone Care Team Providers Care Police Lieutenant Name Role Phone Olivier Riddle DMD Unavailable Unavailable Allergies, Adverse Reactions, Alerts Substance Reaction Status Criticality PENICILLIN Active No Information Medications Medication Instructions Dosage Effective Dates (start - stop) Status Comments hydrocodone 5 mg-acetaminophen 325 mg tablet take 1 tablet by oral route every 6 hours as needed for pain 1.00 tablet - Active hydrocodone 5 mg-acetaminophen 325 mg tablet take 1 tablet by oral route every 6 hours as needed for pain 1.00 tablet - No Longer Active Procedures Procedure Date Extraction, Erupted Tooth Or Exposed Surkeha t (Elevati Extraction, Erupted Tooth Or Exposed Surekha t ( Extraction, Erupted Tooth Or Exposed Surekha t (Elev Extraction, Erupted Tooth Or Exposed Surekha t (Elev Extraction, Erupted Tooth Or Exposed Surekha t (Elev Extraction, Erupted Tooth Or Exposed Surekha t (Elevati Extraction, Erupted Tooth Or Exposed Surekha t (Elevati Extraction, Erupted Tooth Or Exposed Surekha t (Elev Extraction, Erupted Tooth Or Exposed Surekha t (Elev Extraction, Erupted Tooth Or Exposed Surekha t (Elev Extraction, Erupted Tooth Or Exposed Surekha t (Elev Extraction, Erupted Tooth Or Exposed Surekha t (Elev Surgical Removal Of Erupted Tooth Requir ing Elevat Surgical Removal Of Erupted Tooth Requir ing Elevat Surgical Removal Of Erupted Tooth Requir ing Elevat Extraction, Erupted Tooth Or Exposed Surekha t (Elevati Extraction, Erupted Tooth Or Exposed Surekha t (Elevati Extraction, Erupted Tooth Or Exposed Surekha t (Elevati Extraction, Erupted Tooth Or Exposed Surekha t (Elevati Extraction, Erupted Tooth Or Exposed Surekha t (Elevati Extraction, Erupted Tooth Or Exposed Surekha t (Elevati Extraction, Erupted Tooth Or Exposed Surekha t (Elev Extraction, Erupted Tooth Or Exposed Surekha t (Elev Extraction, Erupted Tooth Or Exposed Surekha t (Elev Extraction, Erupted Tooth Or Exposed Surekha t (Elev Extraction, Erupted Tooth Or Exposed Surekha t (Elev Extraction, Erupted Tooth Or Exposed Surekha t (Elev Extraction, Erupted Tooth Or Exposed Surekha t (Elev Extraction, Erupted Tooth Or Exposed Surekha t (Elevati Intraoral Periapical First Film Intraoral Periapical Each Additional Film Intraoral Periapical Each Additional Film Intraoral Periapical Each Additional Film Panoramic Film Extraction, Erupted Tooth Or Exposed Surekha t (Elevati Extraction, Erupted Tooth Or Exposed Surekha t (Elevati Extraction, Erupted Tooth Or Exposed Surekha t (Elevati Extraction, Erupted Tooth Or Exposed Surekha t (Elevati Comprehensive Oral Evaluatio n New Or Established Advance Directives Directive Yes / No Effective Date File Name No Information Encounters Encounter Description Practice Location Reason(s) For Visit Diagnoses Date Provider Providers Copied on Encounter [facility], [id number]-Vy [place], [place], [id number], [place] tel:[phone] [facility] No Information 2 Venkatesh Aguayo. [address] [place] [address], [address], [place]. tel:[phone] Referring Provider: Olivier Riddle, [address] [place] [address], [address]. tel:[phone] [facility], [id number]-Hs [place], [place], [address], [place] tel:[phone] [facility] No Information 2 Venkatesh Aguayo. [address] [place] [address], [address], [place]. tel:[phone] Referring Provider: Olivier Riddle, [address] [place] [address], [address]. tel:[phone] [facility], [id number] [id number]-Ql [place], [id number], [place] tel:[phone] [facility] No Information 2 Chuck Bal. [address] [place], [place], [address], [place]. tel:[phone] Referring Provider: Valeriano Woods, [address] [place], [address] . tel:[phone] [facility], [id number] 182932LW-Gi [place], [address], [place] tel:[phone] Pediatric[facility] F1 Insufficient social insurance and welfare support 2 [facility]. [address] [place], [place], [address], [place]. tel:[phone] Family History Family Member Type Diagnosis Age At Onset No Information Payers Payer name Insurance type Covered constitution party ID Jessica moreland(s) D [employer] Medicaid CI [id number] Social History Type Description Quantity Date Captured Comments Alcohol Use Details Unknown Caffeine Use Details Unknown Tobacco Use Status No Information Smoking Status No Information Sex Male Sexual Orientation Heterosexual Gender Identity Male Chief Complaint And Reason For Visit No Information Reason For Referral Reason For Referral No Information Plan Of Treatment Date Type Action Status Referral Ordered: MDC EX (related to Insufficient social insurance and welfare support) ordered Referral Ordered: Referrals: Location: [facility] ordered History Of Present Illness Encounter Date Complaint History Of Prese nt Illness No Information Functional Status Date Functional Assessmen t No Information Instructions Date Instruction Additional Infor mation No Information Assessments Type Assessment Date No Information Patient Care Teams Name Effective Dates (start - stop) Status Members No Information
[2025-06-22 00:52] VITALS: BP 146/88; PULSE 92; RESP 16; TEMP 36.6; O2SAT 97; BMI 37.0
--- OUTSIDE RECORDS SUMMARY | 2025-06-22 00:55 | XMS_ITS | Clinical Summary ---
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
--- OUTSIDE RECORDS SUMMARY | 2025-06-22 00:55 | XMS_ITS | Clinical Summary ---
Author Organization [facility] de Address [address] [place] [address] Phone Care Team Providers Care Loader Name Role Phone Hugh Banerjee NP Primary [...] 2022 INFLUENZA VACCINE (#1) 2025 Care Teams Loader Relationship Specialty Start Date End Date Hguh Banerjee NP PCP - General NURSE PRACTITIONER 04/08/16
--- NOTE | 2025-06-22 03:02 | CTR_ITS ---
PROCEDURE INFORMATION: Exam: CT Head Without Contrast Exam date and time: 06/22/2025 3:36 AM Age: 29 years old Clinical indication: Pain; Headache; LOCKWOOD with dizziness and hypertension; Additional info: Dizzy TECHNIQUE: Imaging protocol: Computed tomography of the head without contrast. Radiation optimization: All CT scans at this facility use at least one of these dose optimization techniques: automated exposure control; mA and/or kV adjustment per patient size (includes targeted exams where dose is matched to clinical indication); or iterative reconstruction. COMPARISON: CT head wo con* 03/07/2024 2:46 PM RADIATION DOSE METRICS: Total DLP (mGy-cm): 1100.72 FINDINGS: Brain: No acute intracranial hemorrhage, acute large territory infarct, or definite mass lesion. No cerebral edema. Stable faint bilateral globus pallidus calcifications. No midline shift. Stable extension of the cerebellar tonsils of about 9 mm below the foramen magnum, consistent with a Chiari 1 malformation. Cerebral ventricles: No ventriculomegaly. Paranasal sinuses: Visualized paranasal sinuses are clear. Mastoid air cells: Visualized mastoid air cells are clear. Bones: No acute osseous abnormality. Soft tissues: Unremarkable. CT/CT head wo con* [id number] IMPRESSION: 1. No acute intracranial abnormality identified. 2. Stable extension of the cerebellar tonsils of about 9 mm below the foramen magnum, consistent with a Chiari 1 malformation.
[2025-06-22 03:17] VITALS: BP 116/76; PULSE 72; O2SAT 93
--- NOTE | 2025-06-22 03:20 | ECG_ITS ---
[facility] Date: 2025-06-22 Pat Name: Adrián Bangura Department: Room: Gender: Male Service Center Representative: : 1995 Requested By: Bhanu Zhao Order Number: [id number] Rivera MD: Yung Mcgregor M.D. Measurements Intervals [place] Rate: 69 P: 13 [place]: 207 QRS: -31 QRSD: 97 T: 32 QT: 359 QTc: 385 Interpretive Statements SINUS RHYTHM LEFT AXIS DEVIATION [QRS AXIS < -30] Compared to ECG 05/27/2025 02:54:53 NO CHANGE Electronically Signed On 06-22-2025 22:04:05 CDT by Yung Mcgregor M.D. [id number] [id number]
[2025-06-22 03:36] VITALS: BP 108/76; BP 109/74; BP 114/77; PULSE 73; PULSE 77; PULSE 87
[2025-06-22 03:43] LABS: Hematocrit 48.0 % (37-53); Hemoglobin 16.30 g/dL (11.27-16.99); Mean Corpuscular HGB Conc 34.0 g/dL (30-55); Mean Corpuscular Hemoglobin 28.8 pg (27-33); Mean Corpuscular Volume 84.8 fl (82-101); Nucleated Red Blood Cells % 0 %; Platelet Count 348 10^3/cmm (157-399); Red Blood Count 5.66 10^6/uL (3.85-5.65); White Blood Count 13.60 10^3/uL (3.29-11.43)
--- NOTE | 2025-06-22 03:57 | ED_ITS ---
HPI - Recheck/Abnormal Lab/Rx 2 General: Chief Complaint: Recheck/Abnormal Lab/Rx Stated Complaint: thinks BP is high vomiting Time Seen by Provider: 06/22/25 03:36 History of Present Illness: Patient is a 29-year-old male with a history of hypertension who presents to the emergency department with complaints of dizziness, headache, and multiple syncopal episodes. The patient reports that he was previously managed by PCP who prescribed lisinopril for hypertension. Due to insurance changes, he switched providers and was seen by a different PCP who discontinued lisinopril and started him on propranolol twice daily. The patient states that the propranolol doesn't seem to be doing nothing and he feels similar to when he presented in April with elevated blood pressure. Today, he has been experiencing intermittent dizziness throughout the day that worsened around 9:30 PM while sitting at his kitchen table after dinner. He describes a sensation of feeling like he was going to pass out from exhaustion and reports that he has had three syncopal episodes where he lost consciousness briefly. These episodes were not consecutive but occurred with some time between them. The patient also complains of a persistent headache that he associates with his high blood pressure, stating he has had consistent headaches since his blood pressure elevated in April. He reports that the dizziness makes his head feel like it's spinning and worsens his headache. The patient has vomited twice at home due to the severe dizziness. He denies fever, reporting a home temperature of 97.7?F. He also denies diarrhea and chest pain. Related Data Previous Rx's ?Medication ?Instructions ?Recorded ondansetron 8 mg disintegrating 8 mg PO Q6H #14 tabs 0 05/22/25 tablet Blood cuff #1 ea 06/17/25 nystatin 100,000 unit/gram topical 1 applic topical BI D PRN itching 06/17/25 powder #30 grams pantoprazole 40 mg tablet,delayed 40 mg PO DAILY 30 da ys #30 tabs 06/17/25 release (Protonix) propranolol 20 mg tablet 20 mg PO BID #60 tabs Allergies Allergy/AdvReac Type Severity Reaction Status Date / Time Penicillins Allergy Mild ALGY-Rash Verified 06/17/25 08:32 diclofenac Allergy ADR-Itching Verified 06/17/25 08:32 [facility] ED 2 PFS: Medical History GERD (gastroesophageal reflux disease) Surgical History Hx laparoscopic cholecystectomy 08/23/23 Dr Wyatt Family History (Updated 06/17/25 @ 08:44 by Ashley Hunt MA) Father Hypertension Diabetes Prostate cancer Congestive heart failure (CHF) Stroke TIA (transient ischemic attack) Mother Cancer Social History Smoking and tobacco/nicotine status: current every day tobacco/nicotine user Alcohol intake: never Substance/Drug Use: never Adopted: No Caregiver/support person: No Lives independently: Yes Household members: significant other Housing: House Marital status: Single Number of children: 1 service: No Current occupational status: unemployed Current occupational exposures/hazards: No Pets and animals: No Do you think of yourself as: Straight/Heterosexual Current gender identity: Male Special jarvis needs: No Physical Exam 2 Const: COMMON NORMALS: no acute distress and alert GENERAL APPEARANCE: c ooperative; not ill appearing and not frail appearing HENMT: COMMON NORMALS: normocephalic, atraumatic and Normal external nose present HEAD & SCALP: normocephalic and atraumatic FACE & SINUS: normal facial exam and face symmetric NOSE: Normal external nose present Eye: COMMON NORMALS: Equal, round and reactive pupils present and EOMs intact bilaterally PUPIL: Yes Equal, round and reactive pupils present Neck/C-Spine: GENERAL: Yes trachea midline Chest: CHEST: Yes Symmetrical chest wall rise Resp: COMMON NORMALS: normal respiratory effort, No retractions, No use of accessory muscles and clear to auscultation bilaterally AUSCULTATION: clear to auscultation bilaterally Cardio: COMMON NORMALS: regular rate and regular rhythm RATE: regular rate RHYTHM: regular rhythm GI: COMMON NORMALS: Normal to inspection, nondistended, normoactive bowel sounds present Extremity: COMMON NORMALS: no pedal edema Neuro: CHRISS COMA SCALE: document GCS findings [place] coma scale eye opening: Spontaneous Chriss coma scale verbal response: Orientated [place] coma scale motor response: Obey commands Chriss coma scale total score: 15 S ENSORIUM/ORIENTATION: Yes alert CRANIAL NERVES: Yes CN normal except as noted COORDINATION/BALANCE: [id number]-[id number] test normal and hrzg-fy-aksh test normal SPEECH: speech normal SENSORY EXAM: Yes extremities (intact) MOTOR EXAM: Pronator motor function not present COORDINATION: mgoeqp-bn-lzol test normal and dvcq-lk-gljx test normal Psych: COMMON NORMALS: speech normal SPEECH: Yes normal speech Skin: COMMON NORMALS: no rashes or lesions noted GENERAL SKIN EXAM: no rashes or lesions noted Course 2 Vital Signs: Vital signs: Vital Signs Temperature 97.9 F 06/22/25 00:52 Pulse Rate 69 06/22/25 04:17 Respiratory Rate 16 06/22/25 00:52 Blood Pressure 98/60 06/22/25 04:17 Pulse Oximetry 95 06/22/25 04:17 Oxygen Delivery Me thod Room Air 06/22/25 04:17 MDM - Recheck/Abnormal Lab/Rx Medical Decision Making The patient is no longer hypertensive. In fact, blood pressure is 100/60. He is not orthostatic. White blood cell count is 13.6 which is chronic for him. He has a normal differential. BMP is normal. Head CT is negative for acute change. There is a Chiari I malformation. This is a predisposing factor for migraine or headache. He is given Toradol and Reglan here. Headache is somewhat improved. He has not had antihypertensives in 16 hours he says. I have encouraged him to stop his blood pressure medication and take his blood pressure twice daily. Follow-up with his doctor. Return for any new or worsening symptoms. Lab Data 06/22/25 03:31 06/22/25 03:[address] 06/22/25 03:02 IMPRESSION: 1. No acute intracranial abnormality identified. 2. Stable extension of the cerebellar tonsils of about 9 mm below the foramen magnum, consistent with a Chiari 1 malformation. Laboratory Results WBC 13.60 10^3/uL (3.29-11.43) H 06/22/25 03:31 RBC 5.66 10^6/uL (3.85-5.65) H 06/22/25 03:31 Hgb 16.30 g/dL (11.27-16.99) 06/22/25 03:31 Hct 48.0 % (37-53) 06/22/25 03:31 MCV 84.8 fl (82-101) 06/22/25 03:31 MCH 28.8 pg (27-33) 06/22/25 03:31 MCHC 34.0 g/dL (30-55) 06/22/25 03:31 RDW 13.6 % (12.1-15.1) 06/22/25 03:31 Plt Count 348 10^3/cmm (157-399) 06/22/25 03:31 MPV 9.2 fL (7.4-10.4) 06/22/25 03:31 Neut % (Auto) 56.4 % 06/22/25 03:31 Lymph % (Auto) 34.8 % 06/22/25 03:31 Door % (Auto) 5.5 % 06/22/25 03:31 Eos % (Auto) 2.1 % 06/22/25 03:31 Baso % (Auto) 0.8 % 06/22/25 03:31 Neut # (Auto) 7.67 10^3/uL (1.8-7.7) 06/22/25 03:31 Lymph # (Auto) 4.7 10^3/uL (0.8-4.8) 06/22/25 03:31 Door # (Auto) 0.8 10^3/uL (0.2-0.9) 06/22/25 03:31 Eos # (Auto) 0.3 10^3/uL (0.0-0.8) 06/22/25 03:31 Baso # (Auto) 0.1 10^3/uL (0.0-0.1) 06/22/25 03:31 Nucleated RBC % (auto) 0 % 06/22/25 03:31 Nucleated RBCs # 0.0 /100WBC 06/22/25 03:31 Sodium 137 mmol/L (136-145) 06/22/25 03:31 Potassium 4.1 mmol/L (3.5-5.1) 06/22/25 03:31 Chloride 101 mmol/L (98-107) 06/22/25 03:31 Carbon Dioxide 27 mmol/L (22-29) 06/22/25 03:31 Anion Gap 13.1 (5-19) 06/22/25 03:31 BUN 13 mg/dL (6-20) 06/22/25 03:31 Creatinine 1.0 mg/dL (0.7-1.2) 06/22/25 03:31 GFR Calculation 104.0 mL/min (90-130) 06/22/25 03:31 Glucose 100 mg/dL (65-115) 06/22/25 03:31 Calculated Osmolality 284 mOsm/kg (285-295) L 06/22/25 03:31 Calcium 9.7 mg/dL (8.5-10.5) 06/22/25 03:31 Total Bilirubin 0.7 mg/dL (0.15-1.2) 06/22/25 03:31 AST 20 U/L (0-40) 06/22/25 03:31 ALT 26 U/L (0-41) 06/22/25 03:31 Alkaline Phosphatase 83 U/L (40-130) 06/22/25 03:31 Total Protein 7.7 g/dL (6.6-8.7) 06/22/25 03:31 Albumin 4.6 g/dL (3.5-5.2) 06/22/25 03:31 Globulin 3.1 g/dL (1.3-4.6) 06/22/25 03:31 All radiology interpretation(s) finalized by discharge Discharge Plan Discharge Patient Disposition: Home Clinical Impression: Migraine Qualifiers: Migraine type: migraine (< 15 days per month) without aura Status migrainosus presence: without status migrainosus Intractability: not intractable Qualified Code(s): G43.009 - Migraine without aura, not intractable, without status migrainosus Condition: Stable Prescriptions: No Action pantoprazole [Protonix] 40 mg tablet,delayed release (DR/EC) 40 mg PO DAILY 30 Days Qty: 30 2RF (DME) Blood cuff See Rx Instructions .Route .MEDSUPPLY Qty: 1 0RF Rx Instructions: As directed nystatin 100,000 unit/gram powder 1 applic topical BID PRN (Reason: itching) Qty: 30 2RF propranolol 20 mg tablet 20 mg PO BID Qty: 60 2RF ondansetron 8 mg tablet,disintegrating 8 mg PO Q6H Qty: 14 0RF Rx Instructions: Take 1/2-1 tab every 6 hours as needed for nausea and vomiting Discharge Orders: Discharge ED (Routine); Ordered 06/22/25 Ordered By: Bhanu Castaneda Referrals: Hugh Banerjee, RADIOLOGY SUPERVISOR-C [Primary Care Provider, Family Practice] - 1-3 days Patient Instructions: Acute Headache (ED), Opioid Safety, Pain Management, Patient Portal & Celeste Instructions Activity Restrictions/Additional Instructions: You were not significantly hypertensive in the emergency department tonight. Try stopping your medication. Check your blood pressure twice daily. If blood pressures are remaining 135/85, continue your blood pressure medication. Follow-up with your doctor. Call Monday for an appointment. Return for any new or concerning symptoms. Print Language: Urdu Coding Level of Care Code ED [place] Joiner for Galilea Mcgill
[2025-06-22] MEDS: metoclopramide 5 mg/mL SDV 2 mL 10 MG IVP (04:14)
[2025-06-22 04:17] VITALS: BP 98/60; PULSE 69; O2SAT 95
[2025-06-22 04:26] LABS: Alanine Aminotransferase 26 U/L (0-41); Albumin Level 4.6 g/dL (3.5-5.2); Alkaline Phosphatase 83 U/L (40-130); Anion Gap 13.1 (5-19); Aspartate Amino Transferase 20 U/L (0-40); Blood Urea Nitrogen 13 mg/dL (6-20); Calcium 9.7 mg/dL (8.5-10.5); Carbon Dioxide 27 mmol/L (22-29); Chloride 101 mmol/L (98-107); Creatinine Clr Calc Pharmacy 144.0570; Globulin 3.1 g/dL (1.3-4.6); Glucose 100 mg/dL (65-115); Potassium 4.1 mmol/L (3.5-5.1); Sodium 137 mmol/L (136-145); Total Protein 7.7 g/dL (6.6-8.7)
[2025-06-22 04:42] LABS: Osmolality Calculated 284 mOsm/kg (285-295)
== END 2025-06-22 04:47 | disposition home or self-care (01) ==
PROVIDERS: Emergency Provider Emergency Medicine; PCP Nurse Practitioner
DX: G43.009 Migraine without aura, not intractable, without status migrainosus (principal); Z72.0 Tobacco use
CPT/HCPCS: 70450; 80053; 85025; 93005; 96374; 96375; 99285; J1885; J2765

== ENCOUNTER 2025-07-08 17:44 | Emergency (ER) | payer MEDICAID, SELFPAY ==
--- OUTSIDE RECORDS SUMMARY | 2022-07-27 05:30 | XMS_ITS | Continuity of Care Document ---
Author Organization [facility] Address [address] [id number]-[place], [place] [address] Phone Care Team Providers Care Summer Associate Name Role Phone Olivier Riddle DMD Unavailable [...] Diagnoses Date Provider Providers Copied on Encounter [facility], [id number]-Sw [place], [place], [address], [place] tel:[phone] [facility] No Information 2 Venkatesh Aguayo. [address] [place] [address], [address], [place]. tel:[phone] Referring Provider: Olivier Riddle, [address] [place] [address], [address]. tel:[phone] [facility], [address] [id number] 360204JX-Kf [place], [place], [address], [place] tel:[phone] [facility] No Information 2 Venkatesh Aguayo. [address] [place] [address], [address], [place]. tel:[phone] Referring Provider: Olivier Riddle, [address] [place] [address], [address]. tel:[phone] [facility], [address] [id number] 092751UI-Wo [place], [place], [address], [place] tel:[phone] [facility] No Information 2 Chuck Bal. [address] [place], [place], [address], [place]. tel:[phone] Referring Provider: Valeriano Woods, [address] [place], [address] . tel:[phone] [facility], [address] [id number] 773136IY-Ma [place], [place], [address], [place] tel:[phone] [facility] F1 Insufficient social insurance and welfare support 2 [facility]. [address] [place], [place], [address], [place]. tel:[phone] Family History Family Member Type Diagnosis Age At Onset No Information Payers Payer name Insurance type Covered democrat ID Jessica moreland(s) D [employer] Medicaid CI [id number] Social History Type Description Quantity Date Captured [...]
[2025-07-08] VITALS (8 sets, daily range): BP systolic 111–132; BP diastolic 70–85; PULSE 75–110; RESP 16–19; TEMP 36.8; O2SAT 91–96; BMI 36.8
--- OUTSIDE RECORDS SUMMARY | 2025-07-08 17:49 | XMS_ITS | Clinical Summary ---
Author Organization [email or web address] Address [address] [facility] Attn: Epic Prelude ADT LES SIDHU [id number] Care Team Providers Care Track Repairer Name Role Phone Hugh Bnaerjee NP Primary Care Provider [phone] Allergies Active Allergy Reactions Criticality Noted Date [...] on file Legal Sex Male 3:42 AM MEDICAL LEAD Gender Identity Not on file Sexual Orientation [...] 2022 INFLUENZA VACCINE (#1) 2025 Care Teams Track Repairer Relationship Specialty Start Date End Date Hugh Banerjee NP [address] [place] [phone] PCP - General NURSE PRACTITIONER 04/08/16
--- OUTSIDE RECORDS SUMMARY | 2025-07-08 17:49 | XMS_ITS | Clinical Summary ---
Author Organization [facility] de Address [address] [place] [address] Phone Care Team Providers Care Anesthesia Attending Name Role Phone Hugh Banerjee NP Primary [...] 2022 INFLUENZA VACCINE (#1) 2025 Care Teams Anesthesia Attending Relationship Specialty Start Date End Date Hugh Banerjee NP PCP - General NURSE PRACTITIONER 04/08/16
--- NOTE | 2025-07-08 19:30 | CTR_ITS ---
PROCEDURE INFORMATION: Exam: CT Abdomen And Pelvis With Contrast Exam date and time: 07/08/2025 8:17 PM Age: 29 years old Clinical indication: Abdominal pain; Localized; Right lower quadrant (rlq); Additional info: Periumbilical/rlq pain/ bloody stools TECHNIQUE: Imaging protocol: Computed tomography of the abdomen and pelvis with contrast. Radiation optimization: All CT scans at this facility use at least one of these dose optimization techniques: automated exposure control; mA and/or kV adjustment per patient size (includes targeted exams where dose is matched to clinical indication); or iterative reconstruction. Contrast material: OMNIPAQUE 350; Contrast volume: 100 ml; Contrast route: INTRAVENOUS (IV); COMPARISON: CT abdomen pelvis w con* [id number] 04/10/2024 1:29 PM RADIATION DOSE METRICS: Total DLP (mGy-cm): 1152.43 FINDINGS: Liver: There is mild diffuse fatty infiltration of the liver present. Gallbladder and biliary ducts: Gallbladder is surgically removed. Gallbladder surgically removed. Pancreas: Unremarkable. No ductal dilation. Spleen: Unremarkable. No splenomegaly. Adrenal glands: Normal. No mass. Kidneys and ureters: Unremarkable. No hydronephrosis. Stomach and bowel: Bowel demonstrates no obstruction Appendix: Appendix normal Intraperitoneal space: No intra-abdominal or pelvic free air or free fluid present Vasculature: Unremarkable. No abdominal aortic aneurysm. Lymph nodes: Unremarkable. No enlarged lymph nodes. Urinary bladder: Unremarkable as visualized. Reproductive: Unremarkable as visualized. Bones/joints: Unremarkable. No acute fracture. Soft tissues: There is a small fat containing indirect left inguinal hernia. CT/CT abdomen pelvis w con* [id number] IMPRESSION: 1. No acute localized inflammatory abnormalities present abdominopelvic 2. Postcholecystectomy status.
[2025-07-08] MEDS: morphine 4 mg/mL SDV 1 mL IVP (19:44)
[2025-07-08] MEDS: ondansetron 2 mg/ML SDV 2 mL 4 MG IVP (19:45)
--- NOTE | 2025-07-08 19:47 | ED_ITS ---
HPI - Abdominal Pain 2 General: Chief Complaint: Abdominal Pain Stated Complaint: abd pain, felt a pop, urinating blood Time Seen by Provider: 07/08/25 18:32 Source: patient Mode of arrival: ambulatory Limitations: no limitations History of Present Illness: This patient is a 29-year-old male who presents to the emergency department complaining of right lower quadrant pain that began earlier today. He states that he felt a sudden pop in his abdomen while working outside, and states initially it was periumbilically and now is settled in the right lower quadrant. He states he can also feel it in his back. He notes that after this he started to have the sensation that he had to go to the bathroom, and had episode of diarrhea with bright red blood. States he just had the 1 episode, and this has never happened before. Notes that he does not have pain at rest, but is having severe pain with any movement. Still has his appendix, history of cholecystectomy. He notes nausea, no vomiting. No fevers, chills, chest pain, or shortness of breath. He describes the pain as sharp and stabbing. Nontoxic- appearing at time of exam. He is not reporting any urinary symptoms. MD elicited complaint: abdominal pain Onset (ago): hour(s) Pain Consistency: constant Location: RLQ Severity: severe Quality: stabbing and sharp Migration to: periumbilical Exacerbating factors: movement Associated Symptoms: Reports diarrhea, hematochezia and nausea; Denies bloating, change in stool character, chills, constipation, dysuria, fever(s) and vomiting Related Data Previous Rx's ?Medication ?Instructions ?Recorded ondansetron 8 mg disintegrating 8 mg PO Q6H #14 tabs 0 05/22/25 tablet Blood cuff #1 ea 06/17/25 nystatin 100,000 unit/gram topical 1 applic topical BI D PRN itching 06/17/25 powder #30 grams pantoprazole 40 mg tablet,delayed 40 mg PO DAILY 30 da ys #30 tabs 06/17/25 release (Protonix) fluconazole 150 mg tablet 150 mg PO DAILY #5 tabs 01/14 semaglutide 0.25 mg or 0.5 mg (2 0.25 mg (0.368 mL) FRYE BCUT .weekly 06/25/25 mg/3 mL) subcutaneous pen injector #3 mL (Ozempic) Allergies Allergy/AdvReac Type Severity Reaction Status Date / Time Penicillins Allergy Mild ALGY-Rash Verified 06/25/25 09:53 diclofenac Allergy ADR-Itching Verified 06/25/25 09:53 Review of Systems 2 General: Reports: 10 or more systems reviewed and unremarkable except in HPI and below Const: Denies: fever(s), chills, change in appetite, change in weight or diaphoresis ENMT: Denies: throat pain or hoarseness Card: Denies: chest pain, palpitations or lightheadedness Resp: Denies: dyspnea, productive cough or wheezing GI: Reports: abdominal pain, nausea, diarrhea and hematochezia; Denies: vomiting, constipation, bloating or change in stool character : Denies: flank pain, difficulty urinating, dysuria, urinary frequency or urinary urgency Musc: Reports: back pain; Denies: neck pain Skin/Breast: Denies: rash or new lesions Neuro: Denies: headache(s) or dizziness PFSH ED 2 PFSH: Medical History GERD (gastroesophageal reflux disease) Surgical History Hx laparoscopic cholecystectomy 08/23/23 Dr Wyatt Family History Father Hypertension Diabetes Prostate cancer Congestive heart failure (CHF) Stroke TIA (transient ischemic attack) Mother Cancer Social History Smoking and tobacco/nicotine status: current every day tobacco/nicotine user Alcohol intake: never Substance/Drug Use: never Adopted: No Caregiver/support person: No Lives independently: Yes Household members: significant other Housing: House Marital status: Single Number of children: 1 service: No Current occupational status: unemployed Current occupational exposures/hazards: No Pets and animals: No Do you think of yourself as: Straight/Heterosexual Current gender identity: Male Special jarvis needs: No Physical Exam 2 Const: COMMON NORMALS: no acute distress, average body habitus, patient oriented x3, no limitations, healthy appearing, alert and well nourished G ENERAL APPEARANCE: cooperative and comfortable ORIENTATION/CONSCIOUSNESS: Yes awake OTHER: nontoxic Neck/C-Spine: COMMON NORMALS: full ROM, supple, no meningeal signs and no JVD Resp: COMMON NORMALS: normal respiratory effort, No retractions, No use of accessory muscles and clear to auscultation bilaterally AUSCULTATION: clear to auscultation bilaterally, no crackles, no rales, no rhonchi and no wheezes Cardio: COMMON NORMALS: no JVD, regular rate, regular rhythm, No gallops present (Cardio), No clicks present (Cardio), No murmurs present (Cardio), No rub (Cardio) and Peripheral pulses 2+ throughout RATE: regular rate R HYTHM: regular rhythm PERIPHERAL PULSES: Peripheral pulses 2+ throughout GI: COMMON NORMALS: Normal to inspection, nondistended, normoactive bowel sounds present, Soft to palpation, No hepatosplenomegaly present and no masses AUSCULTATION: Yes normoactive bowel sounds PALPATION: Yes Soft to palpation, Yes Tenderness to palpation present (GI) Details: RLQ, No Guarding due to palpation present (GI), No Rigid due to palpation and Yes No hepatosplenomegaly present RECTAL EXAM: Yes deferred OTHER: Positive heel strike and psoas sign, no peritoneal signs : COMMON NORMALS: Yes no CVA tenderness BLADDER/KIDNEY EXAM: Yes no CVA tenderness Back/Pelvis: COMMON NORMALS: no CVA tenderness Extremity: COMMON NORMALS: normal to inspection and full ROM Neuro: COMMON NORMALS: patient oriented x3, moves all extremities, no focal motor deficits and no sensory deficits noted SENSORIUM/ORIENTATION: Yes alert MENINGEAL SIGNS: Yes no meningeal signs Psych: COMMON NORMALS: mental status grossly normal, cooperative and speech normal SPEECH: Yes normal speech Skin: COMMON NORMALS: no rashes or lesions noted GENERAL SKIN EXAM: no rashes or lesions noted Course 2 Vital Signs: Vital signs: Vital Signs Temperature 98.2 F 07/08/25 17:50 Pulse Rate 75 07/08/25 21:35 Respiratory Rate 16 07/08/25 21:35 Blood Pressure 120/79 07/08/25 21:35 Pulse Oximetry 92 07/08/25 21:35 Oxygen Delivery Me thod Room Air 07/08/25 21:08 MDM - Abdominal Pain Medical Decision Making Patient presenting with right lower quadrant pain, occurred while he was working outside today. Positive tenderness palpation right lower quadrant with positive testing for appendix, however lab and imaging are all normal including ruling out appendicitis. Symptoms resolved here in the emergency department, he is complain numerous times of wanting something to eat or drink and do not suspect that there is any acute pathology going on. He will be allowed discharge home. Lab Data 07/08/25 20:11 07/08/25 20:11 Labs/Radiology: Radiology Impressions Abdomen/Pelvis CT 07/08/25 19:30 IMPRESSION: 1. No acute localized inflammatory abnormalities present abdominopelvic 2. Postcholecystectomy status. Laboratory Results WBC 13.52 10^3/uL (3.29-11.43) H 07/08/25 20:11 RBC 5.41 10^6/uL (3.85-5.65) 07/08/25 20:11 Hgb 15.60 g/dL (11.27-16.99) 07/08/25 20:11 Hct 45.8 % (37-53) 07/08/25 20:11 MCV 84.7 fl (82-101) 07/08/25 20:11 MCH 28.8 pg (27-33) 07/08/25 20:11 MCHC 34.1 g/dL (30-55) 07/08/25 20:11 RDW 13.9 % (12.1-15.1) 07/08/25 20:11 Plt Count 314 10^3/cmm (157-399) 07/08/25 20:11 MPV 9.4 fL (7.4-10.4) 07/08/25 20:11 Neut % (Auto) 61.5 % 07/08/25 20:11 Lymph % (Auto) 30.0 % 07/08/25 20:11 Will % (Auto) 5.3 % 07/08/25 20:11 Eos % (Auto) 1.8 % 07/08/25 20:11 Baso % (Auto) 1.0 % 07/08/25 20:11 Neut # (Auto) 8.34 10^3/uL (1.8-7.7) H 07/08/25 20:11 Lymph # (Auto) 4.1 10^3/uL (0.8-4.8) 07/08/25 20:11 Will # (Auto) 0.7 10^3/uL (0.2-0.9) 07/08/25 20:11 Eos # (Auto) 0.2 10^3/uL (0.0-0.8) 07/08/25 20:11 Baso # (Auto) 0.1 10^3/uL (0.0-0.1) 07/08/25 20:11 Nucleated RBC % (auto) 0 % 07/08/25 20:11 Nucleated RBCs # 0.0 /100WBC 07/08/25 20:11 Sodium 143 mmol/L (136-145) 07/08/25 20:11 Potassium 4.0 mmol/L (3.5-5.1) 07/08/25 20:11 Chloride 106 mmol/L (98-107) 07/08/25 20:11 Carbon Dioxide 24 mmol/L (22-29) 07/08/25 20:11 Anion Gap 17.0 (5-19) 07/08/25 20:11 BUN 12 mg/dL (6-20) 07/08/25 20:11 Creatinine 1.0 mg/dL (0.7-1.2) 07/08/25 20:11 GFR Calculation 88.3 mL/min (90-130) L 07/08/25 20:11 Glucose 89 mg/dL (65-115) 07/08/25 20:11 Calculated Osmolality 295 mOsm/kg (285-295) 07/08/25 20:11 Calcium 9.4 mg/dL (8.5-10.5) 07/08/25 20:11 Total Bilirubin 0.8 mg/dL (0.15-1.2) 07/08/25 20:11 AST 25 U/L (0-40) 07/08/25 20:11 ALT 37 U/L (0-41) 07/08/25 20:11 Alkaline Phosphatase 78 U/L (40-130) 07/08/25 20:11 Total Protein 7.4 g/dL (6.6-8.7) 07/08/25 20:11 Albumin 4.5 g/dL (3.5-5.2) 07/08/25 20:11 Globulin 2.9 g/dL (1.3-4.6) 07/08/25 20:11 Lipase 47 U/L (13-60) 07/08/25 20:11 Urine Color Dark yellow (Yellow) A 07/08/25 20:00 Urine Appearance Clear (CLEAR) 07/08/25 20:00 Urine pH 5.5 (5-7) 07/08/25 20:00 Ur Specific [place] 1.034 (1.005-1.030) H 07/08/25 20:00 Urine Protein 1+ (Negative) A 07/08/25 20:00 Urine Glucose (UA) Negative (Normal) 07/08/25 20:00 Urine Ketones Trace (Negative) 07/08/25 20:00 Urine Blood Negative (Negative) 07/08/25 20:00 Urine Nitrate Negative (Negative) 07/08/25 20:00 Urine Bilirubin Negative (Negative) 07/08/25 20:00 Urine Urobilinogen 1.0 mg/dL (Negative) 07/08/25 20:00 Ur Leukocyte Esterase Negative (Negative) 07/08/25 20:00 Urine RBC 3-5 /hpf (0-2) 07/08/25 20:00 Urine WBC 0-5 /hpf (0-5) 07/08/25 20:00 Ur Squamous Epith Cells 0-5 /hpf (0-5) 07/08/25 20:00 Calcium Oxalate Crystal 15-25 /hpf H 07/08/25 20:00 Amorphous Sediment Not Reportable 07/08/25 20:00 Urine Bacteria None seen /hpf (NONE) 07/08/25 20:00 Hyaline Casts 1.65 /lpf 07/08/25 20:00 All radiology interpretation(s) finalized by discharge Discharge Plan Discharge Patient Disposition: Home Clinical Impression: Abdominal pain Qualifiers: Abdominal location: right lower quadrant Qualified Code(s): R10.31 - Right lower quadrant pain Condition: Stable Prescriptions: No Action pantoprazole [Protonix] 40 mg tablet,delayed release (DR/EC) 40 mg PO DAILY 30 Days Qty: 30 2RF (DME) Blood cuff See Rx Instructions .Route .MEDSUPPLY Qty: 1 0RF Rx Instructions: As directed nystatin 100,000 unit/gram powder 1 applic topical BID PRN (Reason: itching) Qty: 30 2RF fluconazole 150 mg tablet 150 mg PO DAILY Qty: 5 0RF Ozempic 0.25 mg or 0.5 mg (2 mg/3 mL) pen injector 0.25 mg SUBCUT .weekly Qty: 3 0RF Rx Instructions: BMI 37.7% ondansetron 8 mg tablet,disintegrating 8 mg PO Q6H Qty: 14 0RF Rx Instructions: Take 1/2-1 tab every 6 hours as needed for nausea and vomiting Discharge Orders: Discharge ED (Routine); Ordered 07/08/25 Ordered By: Isauro Damian Referrals: Hugh Banerjee, CREDIT FRONT OFFICE DEVELOPER-C [Primary Care Provider, Family Practice] Patient Instructions: Abdominal Pain (ED), Pain Management, Patient Portal & Celeste Instructions Activity Restrictions/Additional Instructions: Follow-up with primary care provider. Return with any new or worsening. Motrin and Tylenol for any pain. May resume normal diet. Print Language: Albanian Coding Level of Care Code ED Foreign Food Cook Specialty for Galilea Mcgill
[2025-07-08 20:13] LABS: Glucose Urine UA Negative (Normal); Nitrate Urine Negative (Negative)
[2025-07-08 20:18] LABS: Add Urine Microscopic? YES
[2025-07-08] MEDS: iohexol 350 mg/mL 500 mL Btl (per mL) IV (20:19)
[2025-07-08 20:20] LABS: Hematocrit 45.8 % (37-53); Hemoglobin 15.60 g/dL (11.27-16.99); Mean Corpuscular HGB Conc 34.1 g/dL (30-55); Mean Corpuscular Hemoglobin 28.8 pg (27-33); Mean Corpuscular Volume 84.7 fl (82-101); Nucleated Red Blood Cells % 0 %; Platelet Count 314 10^3/cmm (157-399); Red Blood Count 5.41 10^6/uL (3.85-5.65); White Blood Count 13.52 10^3/uL (3.29-11.43)
[2025-07-08 20:41] LABS: Specific Gravity, Urine 1.034 (1.005-1.030)
[2025-07-08 21:31] LABS: Alanine Aminotransferase 37 U/L (0-41); Albumin Level 4.5 g/dL (3.5-5.2); Alkaline Phosphatase 78 U/L (40-130); Anion Gap 17.0 (5-19); Aspartate Amino Transferase 25 U/L (0-40); Blood Urea Nitrogen 12 mg/dL (6-20); Calcium 9.4 mg/dL (8.5-10.5); Carbon Dioxide 24 mmol/L (22-29); Chloride 106 mmol/L (98-107); Creatinine Clr Calc Pharmacy 143.4971; Globulin 2.9 g/dL (1.3-4.6); Glucose 89 mg/dL (65-115); Lipase 47 U/L (13-60); Osmolality Calculated 295 mOsm/kg (285-295); Potassium 4.0 mmol/L (3.5-5.1); Sodium 143 mmol/L (136-145); Total Protein 7.4 g/dL (6.6-8.7)
== END 2025-07-08 21:59 | disposition home or self-care (01) ==
PROVIDERS: Emergency Provider Physician Assistant; PCP Nurse Practitioner
DX: R10.31 Right lower quadrant pain (principal); Z72.0 Tobacco use
CPT/HCPCS: 36415; 74177; 80053; 81001; 83690; 85025; 96374; 96375; 99285; J2270; J2405; J7030

== ENCOUNTER 2025-08-05 21:59 | Emergency (ER) | payer MEDICAID, SELFPAY ==
[2025-08-05 22:04] VITALS: BP 148/76; PULSE 85; RESP 18; TEMP 36.4; O2SAT 99; BMI 36.8
--- NOTE | 2025-08-05 22:43 | USR_ITS ---
PROCEDURE INFORMATION: Exam: US Scrotum Exam date and time: 08/05/2025 10:57 PM Age: 29 years old Clinical indication: Scrotum pain; Additional info: L testicle pain/new mass TECHNIQUE: Imaging protocol: Real-time ultrasound of the scrotum and contents with color Doppler and image documentation. COMPARISON: CT abdomen pelvis w con* [id number] 07/08/2025 8:17 PM FINDINGS: Right testicle: Right testicle measures 4.2 x 2.9 x 2.2 cm with increased vascularity. Left testicle: Left testes measures 3.9 x 2.7 x 2.1 cm with increased vascularity. Epididymides: Right epididymal cyst measuring 2 mm. Scrotum/soft tissues: Normal. No hydroceles. US/US scrotum [id number] IMPRESSION: Increased vascularity of bilateral testicles representing orchitis.
--- NOTE | 2025-08-05 22:43 | XRR_ITS ---
PROCEDURE INFORMATION: Exam: XR Chest Exam date and time: 08/05/2025 10:44 PM Age: 29 years old Clinical indication: Shortness of breath TECHNIQUE: Imaging protocol: Radiologic exam of the chest. Views: 1 view. COMPARISON: CR (CHEST, ) 05/27/2025 4:22 AM FINDINGS: Lungs: Unremarkable. No consolidation. Pleural spaces: Unremarkable. No pleural effusion. No pneumothorax. Heart/Mediastinum: Unremarkable. No cardiomegaly. Bones/joints: Unremarkable. XR/XR chest 1V portable [id number] IMPRESSION: No acute findings.
--- NOTE | 2025-08-05 22:45 | W.ED.MALEGU ---
HPI - Male Genitourinary General: Chief complaint: Urogenital-Male Stated complaint: pain and found a knot on Private area Time Seen by Provider: 08/05/25 22:32 History of Present Illness: 29yo M w/cc of multiple complaints. He states that he has been feeling unwell for the past couple of weeks. Patient states that he was seen at urgent care, was treated with antibiotics for a pulmonary infection though he states it has not made a whole lot of a difference. Today, patient had a fever at home. He has had a cough and complains of diffuse chest pain and pain with respiration. Cough has been dry, no hemoptysis, syncope, lower extremity swelling, lower extremity asymmetry, history of DVT/PE or hormone use or recent surgery or immobilization. Patient has not had any abdominal pain, nausea or vomiting. He has chronic diarrhea but no change in bowel habits and no blood in stool. Patient is presenting today with a concern of left testicular pain. He states that in the shower, he noted a mass in his left testicle. This concerned him and he presented to the emergency department. He has not had any dysuria, increased frequency or abnormal penile discharge. Patient is circumcised. He states that he is sexually active with a monogamous partner of the past 10 years. Patient denies alcohol, drug use but is a tobacco user. Related Data Previous Rx's ?Medication ?Instructions ?Recorded ondansetron 8 mg disintegrating 8 mg PO Q6H #14 tabs 05/22/25 tablet Blood cuff #1 ea 06/17/25 nystatin 100,000 unit/gram topical 1 applic topical BID PRN itching 06/17/25 powder #30 grams pantoprazole 40 mg tablet,delayed 40 mg PO DAILY 30 days #30 tabs 06/17/25 release (Protonix) albuterol sulfate 90 mcg/actuation 2 puff inhalation Q6H PRN 07/22/25 aerosol inhaler shortness of breath or wheezing #8.5 grams eeyavmlvpfsygmh-gzbsipgaxawoqwt-PQ 7.5 ml PO Q6H PRN cold symptoms 07/22/25 2 mg-30 mg-10 mg/5 mL oral syrup #160 mL (Bromfed DM) levofloxacin 750 mg tablet 750 mg PO DAILY 7 days #7 tabs 07/22/25 prednisone 20 mg tablet 20 mg PO DAILY 5 days #5 tabs 07/22/25 doxycycline hyclate 100 mg tablet 100 mg PO BID 14 days #28 tabs 08/06/25 Allergies Allergy/AdvReac Type Severity Reaction Status Date / Time Penicillins Allergy Mild ALGY-Rash Verified 06/25/25 09:53 diclofenac Allergy ADR-Itching Verified 06/25/25 09:53 PFSH ED PFSH: Medical History (Updated 08/06/25 @ 00:53 by Dalia Dunbar MD) GERD (gastroesophageal reflux disease) Surgical History Hx laparoscopic cholecystectomy 08/23/23 Dr Wyatt Family History Father Hypertension Diabetes Prostate cancer Congestive heart failure (CHF) Stroke TIA (transient ischemic attack) Mother Cancer Social History Smoking and tobacco/nicotine status: current every day tobacco/nicotine user Alcohol intake: never Substance/Drug Use: never Adopted: No Caregiver/support person: No Lives independently: Yes Household members: significant other Housing: House Marital status: Single Number of children: 1 service: No Current occupational status: unemployed Current occupational exposures/hazards: No Pets and animals: No Do you think of yourself as: Straight/Heterosexual Current gender identity: Male Special jarvis needs: No Physical Exam Narrative: EXAM NARRATIVE: Vital signs reviewed. Patient is alert, oriented and hemodynamically stable. Patient is afebrile. Patient has clear lung sounds bilaterally, normal heart sounds. Abdomen is soft, nondistended nontender. External genitals appear normal. I do not appreciate any penile lesions or discharge. Patient has tenderness of the left testicle but no obvious masses. Normal testicular lie bilaterally. Cremasteric reflex is intact bilaterally. Course Vital Signs: Vital signs: Vital Signs Temperature 97.6 F 08/05/25 22:04 Pulse Rate 81 08/05/25 23:15 Respiratory Rate 18 08/05/25 22:04 Blood Pressure 118/69 08/05/25 23:15 Pulse Oximetry 95 08/05/25 23:15 Oxygen Delivery Me thod Room Air 08/05/25 23:15 [facility] - Male Medical Decision Making 29-year-old male presenting with a chief complaint of feeling unwell for the past couple of weeks, cough, diffuse chest pain, pain with breathing and left testicular pain. Differential diagnosis includes but is limited to, viral syndrome such as COVID-19, flu or other nonspecific viral syndrome, pneumonia, bronchitis, PE, asthma exacerbation/COPD exacerbation, UTI, epididymitis, orchitis, hernia, testicular mass, STI or torsion. Patient was evaluated with CBC, BMP, troponin, D-dimer, EKG, COVID and flu screen, UA, gonorrhea and chlamydia screen, chest x-ray and ultrasound of the scrotum. Patient has a minimally elevated white blood cell count which is nonspecific. Otherwise, he does not have any actionable electrolyte abnormalities and he has normal D-dimer and troponin. Thus my suspicion for pulmonary embolus is low. Chest x-ray does not demonstrate pneumonia, pulmonary edema, pneumothorax or pleural effusion. Testicular ultrasound demonstrates bilateral orchitis. I suspect that patient has a nonspecific viral syndrome. Due to the fact that he is sexually active, will treat with ceftriaxone and doxycycline. Otherwise, patient is appropriate for discharge. Patient was counseled on supportive care at home, given return precautions and discharged in stable condition. Lab Data 08/06/25 00:01 08/06/25 00:01 Radiology Impressions Chest X-Ray 08/05/25 22:43 IMPRESSION: No acute findings. Scrotum Ultrasound 08/05/25 22:43 IMPRESSION: Increased vascularity of bilateral testicles representing orchitis. ADDENDUM: 08/05/25 2333 This is an addendum to prior report on ultrasound of the scrotum dated 08/05/2025 at 10:57 p.m.. The impression should include: Left varicocele. THIS REPORT CONTAINS FINDINGS THAT MAY BE CRITICAL TO PATIENT CARE. The findings were verbally communicated via telephone conference with Dalia Dunbar at 11:30 PM CDT on 08/05/2025. The findings were acknowledged and understood. Laboratory Results WBC 12.20 10^3/uL (3.29-11.43) H 08/06/25 00:01 RBC 5.24 10^6/uL (3.85-5.65) 08/06/25 00:01 Hgb 15.00 g/dL (11.27-16.99) 08/06/25 00:01 Hct 44.5 % (37-53) 08/06/25 00:01 MCV 84.9 fl (82-101) 08/06/25 00:01 MCH 28.6 pg (27-33) 08/06/25 00:01 MCHC 33.7 g/dL (30-55) 08/06/25 00:01 RDW 13.6 % (12.1-15.1) 08/06/25 00:01 Plt Count 326 10^3/cmm (157-399) 08/06/25 00:01 MPV 9.4 fL (7.4-10.4) 08/06/25 00:01 Neut % (Auto) 55.2 % 08/06/25 00:01 Lymph % (Auto) 34.6 % 08/06/25 00:01 [place] % (Auto) 6.1 % 08/06/25 00:01 Eos % (Auto) 2.9 % 08/06/25 00:01 Baso % (Auto) 0.9 % 08/06/25 00:01 Neut # (Auto) 6.73 10^3/uL (1.8-7.7) 08/06/25 00:01 Lymph # (Auto) 4.2 10^3/uL (0.8-4.8) 08/06/25 00:01 [place] # (Auto) 0.8 10^3/uL (0.2-0.9) 08/06/25 00:01 Eos # (Auto) 0.4 10^3/uL (0.0-0.8) 08/06/25 00:01 Baso # (Auto) 0.1 10^3/uL (0.0-0.1) 08/06/25 00:01 Nucleated RBC % (auto) 0 % 08/06/25 00:01 Nucleated RBCs # 0.0 /100WBC 08/06/25 00:01 D-Dimer <= 0.27 ug/mLFEU (0-0.59) 08/06/25 00:01 Sodium 138 mmol/L (136-145) 08/06/25 00:01 Potassium 3.8 mmol/L (3.5-5.1) 08/06/25 00:01 Chloride 101 mmol/L (98-107) 08/06/25 00:01 Carbon Dioxide 24 mmol/L (22-29) 08/06/25 00:01 Anion Gap 16.8 (5-19) 08/06/25 00:01 BUN 11 mg/dL (6-20) 08/06/25 00:01 Creatinine 0.8 mg/dL (0.7-1.2) 08/06/25 00:01 GFR Calculation 114.3 mL/min (90-130) 08/06/25 00:01 Glucose 104 mg/dL (65-115) 08/06/25 00:01 Calculated Osmolality 286 mOsm/kg (285-295) 08/06/25 00:01 Calcium 9.2 mg/dL (8.5-10.5) 08/06/25 00:01 Total Bilirubin Cancelled 08/06/25 00:01 AST Cancelled 08/06/25 00:01 ALT Cancelled 08/06/25 00:01 Alkaline Phosphatase Cancelled 08/06/25 00:01 Troponin T Baseline 15 ng/L (0-15) 08/06/25 00:01 Total Protein Cancelled 08/06/25 00:01 Albumin Cancelled 08/06/25 00:01 Globulin Cancelled 08/06/25 00:01 Urine Color Yellow (Yellow) 08/06/25 00:09 Urine Appearance Clear (CLEAR) 08/06/25 00:09 Urine pH 6.0 (5-7) 08/06/25 00:09 Ur Specific [place] 1.014 (1.005-1.030) 08/06/25 00:09 Urine Protein Negative (Negative) 08/06/25 00:09 Urine Glucose (UA) Negative (Normal) 08/06/25 00:09 Urine Ketones Negative (Negative) 08/06/25 00:09 Urine Blood Negative (Negative) 08/06/25 00:09 Urine Nitrate Negative (Negative) 08/06/25 00:09 Urine Bilirubin Negative (Negative) 08/06/25 00:09 Urine Urobilinogen 1.0 mg/dL (Negative) 08/06/25 00:09 Ur Leukocyte Esterase Negative (Negative) 08/06/25 00:09 Urine RBC 0-2 /hpf (0-2) 08/06/25 00:09 Urine WBC 0-5 /hpf (0-5) 08/06/25 00:09 Ur Squamous Epith Cells 0-5 /hpf (0-5) 08/06/25 00:09 Amorphous Sediment Not Reportable 08/06/25 00:09 Urine Bacteria None seen /hpf (NONE) 08/06/25 00:09 Hyaline Casts 0.40 /lpf 08/06/25 00:09 Influenza A (PCR) Negative (Negative) 08/05/25 23:21 Influenza Type B (PCR) Negative (Negative) 08/05/25 23:21 RSV (PCR) Negative (Negative) 08/05/25 23:21 SARS-CoV-2 (PCR) Negative (Negative) 08/05/25 23:21 All radiology interpretation(s) finalized by discharge Discharge Plan Discharge Patient Disposition: Home Clinical Impression: Acute viral syndrome, Orchitis Condition: Stable Prescriptions: New doxycycline hyclate 100 mg tablet 100 mg PO BID 14 Days Qty: 28 0RF No Action prednisone 20 mg tablet 20 mg PO DAILY 5 Days Qty: 5 0RF levofloxacin 750 mg tablet 750 mg PO DAILY 7 Days Qty: 7 0RF albuterol sulfate 90 mcg/actuation HFA aerosol inhaler 2 puff inhalation Q6H PRN (Reason: shortness of breath or wheezing) Qty: 8.5 0RF aglqeuxxmthhodw-lrwcurvee-FO [Bromfed DM] 2-30-10 mg/5 mL syrup 7.5 ml PO Q6H PRN (Reason: cold symptoms) Qty: 160 0RF pantoprazole [Protonix] 40 mg tablet,delayed release (DR/EC) 40 mg PO DAILY 30 Days Qty: 30 2RF (DME) Blood cuff See Rx Instructions .Route .MEDSUPPLY Qty: 1 0RF Rx Instructions: As directed nystatin 100,000 unit/gram powder 1 applic topical BID PRN (Reason: itching) Qty: 30 2RF ondansetron 8 mg tablet,disintegrating 8 mg PO Q6H Qty: 14 0RF Rx Instructions: Take 1/2-1 tab every 6 hours as needed for nausea and vomiting Discharge Orders: Discharge ED (Routine); Ordered 08/06/25 Ordered By: Dalai Dunbar Referrals: Hugh Banerjee, FISH HOUSEKEEPER-C [Primary Care Provider, Family Practice] Patient Instructions: Opioid Safety, Pain Management, Patient Portal & Celeste Instructions, Orchitis, Scrotal Pain (ED) Activity Restrictions/Additional Instructions: Please continue to monitor your condition closely at home. Take Ibuprofen 400mg and Tylenol 500-1000mg every six hours for pain and inflammation. If your condition worsens or additional concerns arise, please return promptly to the emergency department for reassessment. Follow up with your primary care doctor in one week. Please refrain from sexual activity until your treatment is complete. I recommend that you talk to your doctor about comprehensive outpatient testing for sexually transmitted infections. Your sexual partner should also be tested. Print Language: Korean Coding Level of Care Code ED Measuring Machine Tender for Galilea Mcgill
[2025-08-05 23:15] VITALS: BP 118/69; PULSE 81; O2SAT 95
[2025-08-06 00:13] LABS: Hematocrit 44.5 % (37-53); Hemoglobin 15.00 g/dL (11.27-16.99); Mean Corpuscular HGB Conc 33.7 g/dL (30-55); Mean Corpuscular Hemoglobin 28.6 pg (27-33); Mean Corpuscular Volume 84.9 fl (82-101); Nucleated Red Blood Cells % 0 %; Platelet Count 326 10^3/cmm (157-399); Red Blood Count 5.24 10^6/uL (3.85-5.65); White Blood Count 12.20 10^3/uL (3.29-11.43)
[2025-08-06 00:20] LABS: Glucose Urine UA Negative (Normal); Nitrate Urine Negative (Negative); Specific Gravity, Urine 1.014 (1.005-1.030)
[2025-08-06 00:25] LABS: Add Urine Microscopic? YES
[2025-08-06 00:26] LABS: Respiratory Syncytial Virus Ce NEGATIVE (Negative); SARS-CoV-2 PCR NEGATIVE (Negative)
[2025-08-06 00:27] LABS: Troponin(5th) Baseline 15 ng/L (0-15)
[2025-08-06 00:28] LABS: Anion Gap 16.8 (5-19); Blood Urea Nitrogen 11 mg/dL (6-20); Calcium 9.2 mg/dL (8.5-10.5); Carbon Dioxide 24 mmol/L (22-29); Chloride 101 mmol/L (98-107); Creatinine Clr Calc Pharmacy 179.3714; Glucose 104 mg/dL (65-115); Osmolality Calculated 286 mOsm/kg (285-295); Potassium 3.8 mmol/L (3.5-5.1); Sodium 138 mmol/L (136-145)
[2025-08-06] MEDS: cefTRIAXone 500 MG in water for injection-sterile 1 ML IM (01:38)
[2025-08-06 01:47] LABS: Neisseria Gonorrhea NOT DETECTED (Negative)
== END 2025-08-06 01:54 | disposition home or self-care (01) ==
PROVIDERS: Physician Assistant; Emergency Provider Emergency Medicine; PCP Nurse Practitioner
DX: B34.9 Viral infection, unspecified (principal); N45.2 Orchitis; Z11.52 Encounter for screening for COVID-19; Z72.0 Tobacco use
CPT/HCPCS: 71045; 76870; 80048; 81001; 84484; 85025; 85378; 87491; 87591; 87637; 96372; 99284; J0696

== ENCOUNTER → 2025-08-26 10:39 | Outpatient (BNVA) | payer MEDICAID, SELFPAY | PROVIDERS: PCP Nurse Practitioner; Visit Provider Nurse Practitioner | DX: K21.9 Gastro-esophageal reflux disease without esophagitis (principal) | CPT/HCPCS: 85025 ==

== ENCOUNTER 2025-09-08 09:17 | Outpatient (CLI) | payer MEDICAID, SELFPAY ==
--- NOTE | 2025-09-08 09:20 | XR_ITS ---
WS: [id number] XR ankle LT min 3V* [id number] REASON FOR EXAM: M25.579 - Pain in unspecified ankle and joints of unspeci... FINDINGS: No acute fracture. Joint spaces of the ankle are intact and well preserved. No radiopaque soft tissue foreign body. XR/XR ankle LT min 3V* [id number] IMPRESSION: No significant bone or joint abnormality.
--- NOTE | 2025-09-08 09:30 | US_ITS ---
WS: [id number] SCROTAL ULTRASOUND EXAMINATION CLINICAL INFORMATION: N45.2 - Orchitis COMPARISON: 08/05/2025 FINDINGS: TESTES Normal in size and echotexture, without focal lesion. Color Doppler: Normal color Doppler flow pattern. Right testes size: 4.3 cm x 2.9 cm x 2.3 cm. Left testes size: 4.0 cm x 2.8 cm x 1.9 cm. EPIDIDYMIDES Small RIGHT epididymal cyst. Color Doppler: Normal color Doppler flow pattern. Right epididymis size: 0.9 cm x 1.0 cm x 1.5 cm. Left epididymis size: 0.8 cm x 0.6 cm x 1.5 cm. HYDROCELE None. VARICOCELE Stable LEFT varicocele OTHER FINDINGS None. US/US scrotum [id number] IMPRESSION: 1. Previously described orchitis has resolved. No evidence of abscess or fluid collection. 2. Small RIGHT epididymal cyst measuring 4 x 4 x 3 mm 3. Stable LEFT varicocele.
== END 2025-09-08 09:18 | disposition home or self-care (01) ==
LOC: RAD 09:18
PROVIDERS: PCP Nurse Practitioner; Visit Provider Nurse Practitioner
DX: N45.2 Orchitis (principal); M25.579 Pain in unspecified ankle and joints of unspecified foot; N50.3 Cyst of epididymis; I86.1 Scrotal varices
CPT/HCPCS: 73610; 76870

== ENCOUNTER 2025-10-12 03:19 | Emergency (ER) | payer MEDICAID, SELFPAY ==
[2025-10-12 03:24] VITALS: BP 129/81; PULSE 83; RESP 18; TEMP 36.5; O2SAT 95; BMI 27.8
--- OUTSIDE RECORDS SUMMARY | 2025-10-12 03:33 | XMS_ITS | Clinical Summary ---
Author Organization [facility] de Address [address] [place] [address] Phone Care Team Providers Care Barrel Rifler Hook Name Role Phone Hugh Banerjee NP Primary Care Provider [phone] Allergies Active Allergy Reactions Criticality Noted Date [...] 3-dose series) 11/2014 INFLUENZA VACCINE (#1) 2025 HPV VACCINES (No Doses Required) Completed Care Teams Barrel Rifler Hook Relationship Specialty Start Date End Date Hguh Banerjee NP PCP - General NURSE PRACTITIONER 04/08/16
--- OUTSIDE RECORDS SUMMARY | 2025-10-12 03:33 | XMS_ITS | Clinical Summary ---
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
[2025-10-12 03:34] VITALS: BP 122/85; PULSE 79; RESP 16; O2SAT 96
[2025-10-12] MEDS: tetanus-dipt-pertussis 0.5 mL SDV IM (03:39)
--- NOTE | 2025-10-12 03:48 | W.ED.WOUNDLC ---
HPI - Wound/Laceration General: Chief Complaint: Wound/Laceration Stated Complaint: lac finger Time Seen by Provider: 10/12/25 03:21 History of Present Illness: Patient is a 29-year-old male with a past medical history of asthma, GERD who presents to the ED with a right thumb laceration. 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 Has had a mild amount of bleeding but easily controlled. Associated symptoms: Denies chills or fever(s) Related Data Previous Rx's ?Medication ?Instructions ?Recorded albuterol sulfate 90 mcg/actuation 2 puff inhalation Q6H PRN 07/22/25 aerosol inhaler shortness of breath or wheezing #8.5 grams pantoprazole 40 mg tablet,delayed 40 mg PO DAILY 30 days #30 tabs 08/07/25 release (Protonix) nystatin 100,000 unit/gram topical 1 applic topical BID PRN itching 08/08/25 powder #30 grams chlorhexidine gluconate 0.12 % 15 ml buccal BID #473 mL 08/26/25 mouthwash (Peridex) Allergies Allergy/AdvReac Type Severity Reaction Status Date / Time Penicillins Allergy Mild ALGY-Rash Verified 10/12/25 03:26 diclofenac Allergy ADR-Itching Verified 10/12/25 03:26 Review of Systems General: Reports: 10 or more systems reviewed and unremarkable except in HPI and below Const: Denies: fever(s) or chills Eyes: Denies: change in vision or eye discharge Card: Denies: chest pain, palpitations or swelling of feet/ankles Resp: Denies: dyspnea or productive cough GI: Denies: abdominal pain or diarrhea : Denies: difficulty urinating Musc: Denies: neck pain or back pain Skin/Breast: Denies: rash or jaundice Neuro: Denies: headache(s), numbness in extremities or weakness in extremities [place]/Lymph: Denies: easy bruising or easy bleeding PFS ED PFSH: Medical History (Updated 10/12/25 @ 03:48 by Efrain Wang DO) GERD (gastroesophageal reflux disease) Surgical History Hx laparoscopic cholecystectomy 08/23/23 Dr Wyatt Family History Father Hypertension Diabetes Prostate cancer Congestive heart failure (CHF) Stroke TIA (transient ischemic attack) Mother Cancer Social History Smoking and tobacco/nicotine status: current every day tobacco/nicotine user Alcohol intake: never Substance/Drug Use: never Adopted: No Caregiver/support person: No Lives independently: Yes Household members: significant other Housing: House Marital status: Single Number of children: 1 service: No Current occupational status: unemployed Current occupational exposures/hazards: No Pets and animals: No Do you think of yourself as: Straight/Heterosexual Current gender identity: Male Special jarvis needs: No Physical Exam Narrative: EXAM NARRATIVE: Right thumb with 2 cm perpendicular linear laceration to tip of finger that extends mildly into the nailbed, no active bleeding, full range of motion of DIP and PIP joint of thumb, no other injury seen to hand, no tenderness to hyperthenar or thenar eminence, no pain to snuffbox region, full range of motion of the wrist. 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 Tetanus shot updated and patient discharged in stable condition, used Vicryl suture so will dissolve on its own, supportive recommendations given, strict return precautions given as well. No radiology studies performed this visit Discharge Plan Discharge Patient Disposition: Home Clinical Impression: Finger laceration Condition: Stable Prescriptions: No Action pantoprazole [Protonix] 40 mg tablet,delayed release (DR/EC) 40 mg PO DAILY 30 Days Qty: 30 2RF albuterol sulfate 90 mcg/actuation HFA aerosol inhaler 2 puff inhalation Q6H PRN (Reason: shortness of breath or wheezing) Qty: 8.5 0RF chlorhexidine gluconate [Peridex] 0.12 % mouthwash 15 ml buccal BID Qty: 473 2RF nystatin 100,000 unit/gram powder 1 applic topical BID PRN (Reason: itching) Qty: 30 2RF Discharge Orders: Discharge ED (Routine); Ordered 10/12/25 Ordered By: Efrain Wang Referrals: Hugh Banerjee, [facility] [Primary Care Provider, [facility]] Discharge Diet: Usual diet Discharge Activity: Increase activity as tolerated Patient Instructions: Opioid Safety, Pain Management, Patient Portal & Celeste Instructions Activity Restrictions/Additional Instructions: You were seen for your finger injury, this was repaired with 1 stitch that will dissolve on its own in 7 to 10 days. Keep your finger wrapped for the next 24 hours if possible because there is an antibiotic ointment on there that should help prevent any secondary infection. After this time, you can take off the wrap and use your finger is normal. Return to the ED with severe bleeding at the site, not being able to move or feel your thumb, severe swelling at the site, any other emergent concerns. Print Language: Cambodian Coding Level of Care Code ED Bee Producer for Galilea Mcgill
[2025-10-12 04:02] VITALS: BP 109/73; PULSE 86; RESP 18; O2SAT 96
== END 2025-10-12 03:54 | disposition home or self-care (01) ==
PROVIDERS: Emergency Provider Student in an Organized Health Care Education/Training Program; PCP Nurse Practitioner
DX: S61.011A Laceration without foreign body of right thumb without damage to nail, initial encounter (principal); Z72.0 Tobacco use; W26.8XXA Contact with other sharp object(s), not elsewhere classified, initial encounter
CPT/HCPCS: 90471; 90715; 99282